=== PATIENT | male | born 1975 | race American Indian/Alaskan Native ===

== ENCOUNTER 2017-01-24 12:32 | Inpatient (IN) | payer MEDICARE, MEDICAID ==
--- NOTE | 2017-01-24 13:01 | ED PDOC ---
Arrival/HPI - General Chief Complaint: Dizziness/Lightheaded Time Seen by Provider: 01/24/17 12:45 Historian: Patient - History of Present Illness Narrative History of Present Illness (Text): 01/24/17 12:57 A 42 year old male, whose past medical history includes diabetes and hypertension, was sent into the emergency department from [facility] for dizziness and lethargy. Patient states he began experiencing these symptoms since last night. He also states that he's been vomiting this week. He was given antibiotics for his leg but vomiting them up. Patient denies any fever, chills, nausea, vomiting, abdominal pain, chest pain, shortness of breath, cough , weakness, numbness or any other complaints. PMD: Dr. Isaac Mom was called for more history but no answer. Left a voice mail. Time/Duration: Other (Last night) Symptom Course: Unchanged Quality: Other Context: Other (Adult daycare) Past Medical History - Provider Review Nursing Documentation Reviewed: Yes - Infectious Disease Hx of Infectious Diseases: None - Cardiac Hx Hypertension: Yes - Endocrine/Metabolic Hx Diabetes Mellitus Type 2: Yes - Musculoskeletal/Rheumatological Hx Gout: Yes - Psychiatric Hx Substance Use: No - Anesthesia Hx Anesthesia: No Family/Social History - Physician Review Nursing Documentation Reviewed: Yes Family/Social History: No Known Family HX Smoking Status: Unknown If Ever Smoked Hx Alcohol Use: No Hx Substance Use: No Allergies/Home Meds Allergies/Adverse Reactions: Allergies No Known Allergies Allergy (Verified 01/24/17 12:47) Home Medications: Home Meds Medication Instructions Recorded Confirmed Acetaminophen [Tylenol 325mg tab] 650 mg PO PRN PRN 01/24/17 01/24/17 Allopurinol [Zyloprim] 300 mg PO DAILY 01/24/17 01/24/17 Atorvastatin Calcium 10 mg PO DAILY 01/24/17 01/24/17 Cyclobenzaprine [Cyclobenzaprine 10 mg PO TID 01/24/17 01/24/17 HCl] Diclofenac Sodium [Voltaren] 75 mg PO BID 01/24/17 01/24/17 Gabapentin [Neurontin] 300 mg PO BID 01/24/17 01/24/17 Levofloxacin [Levaquin] 500 mg PO DAILY 01/24/17 01/24/17 Losartan/Hydrochlorothiazide 1 each PO DAILY 01/24/17 01/24/17 [Losartan-Hctz 100-25 mg Tab] MetFORMIN [glucOPHAGE] 500 mg PO BID 01/24/17 01/24/17 Nebivolol [Bystolic] 10 mg PO DAILY 01/24/17 01/24/17 amLODIPine [Norvasc] 5 mg PO DAILY 01/24/17 01/24/17 traMADol [Ultram] 50 mg PO Q6 PRN 01/24/17 01/24/17 Review of Systems - Physician Review All systems were reviewed & negative as marked: Yes - Review of Systems Systems not reviewed;Unavailable: Other (Limited to drowsiness) Constitutional: Other (Lethargy). absent: Fevers, Night Sweats Respiratory: absent: SOB, Cough Cardiovascular: absent: Chest Pain Gastrointestinal: absent: Abdominal Pain, Nausea, Vomiting Neurological: Dizziness. absent: Focal Weakness (or numbness) Physical Exam Vital Signs Reviewed: Yes Vital Signs Temp Pulse Resp BP Pulse Ox 01/24/17 16:04 64 16 91/37 L 92 L 01/24/17 15:13 68 16 85 L 01/24/17 14:46 69 20 95 01/24/17 12:49 97.3 F L 66 24 125/48 L 87 L Temperature: Afebrile Blood Pressure: Hypotensive Pulse: Regular Respiratory Rate: Normal Appearance: Positive for: Comfortable, Ill-Appearing, Other (Obese male) Pain Distress: None Mental Status: Positive for: Alert and Oriented X 3 (when you wake him up), Lethargic Finger Stick Blood Glucose: 136 - Systems Exam Head: Present: Atraumatic, Normocephalic Pupils: Present: PERRL Extroacular Muscles: Present: EOMI Conjunctiva: Present: Normal Mouth: Present: Moist Mucous Membranes Pharnyx: Present: Normal. No: ERYTHEMA Nose (Internal): Present: Normal Inspection Neck: Present: Normal Range of Motion. No: Meningeal Signs, MIDLINE TENDERNESS , Paraspinal Tenderness Respiratory/Chest: Present: Clear to Auscultation, Good Air Exchange. No: Respiratory Distress, Accessory Muscle Use Cardiovascular: Present: Regular Rate and Rhythm, Normal S1, S2. No: Murmurs Abdomen: Present: Normal Bowel Sounds. No: Tenderness, Distention, Peritoneal Signs Back: Present: Normal Inspection Upper Extremity: Present: Normal Inspection. No: Cyanosis, Edema Lower Extremity: Present: Normal Inspection. No: Edema Neurological: Present: GCS=15, CN II-XII Intact, Speech Normal Skin: Present: Warm, Dry, Normal Color, Other (5x3 irregular shaped superficial ulcer on left foot, mild warmth, no erythema). No: Rashes Psychiatric: Present: Alert, Oriented x 3, Normal Insight, Normal Concentration , Lethargic Medical Decision Making ED Course and Treatment: 01/24/17 12:57 Impression: A 42 year old female with dizziness and lethargy Differential Diagnosis included but are not limited to: Sepsis vs Drug Overdose , vs Electrolyte abnormality Plan: -- Head CT -- Chest xray -- EKG -- Labs -- Blood and Urine culture -- Urinalysis -- Reassess and disposition Progress Notes: EKG shows NSR at [address]-segment elevations, normal intervals. Interpreted by me. Report Date : 01/24/2017 14:08:40 PROCEDURE: CT HEAD WITHOUT CONTRAST. Dictator : Roberto Fernandez MD IMPRESSION: Normal CT of the Head. 01/24/17 14:17 Code sepsis called at this time. Report Date : 01/24/2017 14:26:40 PROCEDURE: CHEST RADIOGRAPH, 1 VIEW Dictator : Radha Alfonso V. IMPRESSION: Masslike consolidation in the mid right lung zone. Infiltrate versus underlying mass are considerations. Follow-up to ensure resolution is needed. CXR showed PNA and patient was treated with Cefepime and Vancomycin IV for broad spectrum antibiotics. Code Sepsis was called secondary to suspicion of infection, elevated WBC and RR and newly elevated Creatinine greater than 2.0. Patient does not report renal failure. LA not elevated. IVF were ordered. Case was discussed with Dr. Mendoza when he came to the ED. He reviewed the case and requested an ABG and CT to evaluated that questionable mass versus infiltrate. When CT was completed he was reevaluated and Oxy Sat was 84% on 2L. We increased the oxygen supply in the ED. Dr. Mendoza accepted the case to the ICU. Patient's PMD does not admit to [place]. I discussed case with Dr. Flavio Mendoza who accepted it under her service for PnA r/o Sepsis, ARF. Dye was ordered and placed by VY Mcdonough. - Critical Care Critical Care Minutes: 60 minutes - Lab Interpretations Lab Results: 01/24/17 13:43 01/24/17 13:43 Lab Results 01/24/17 14:27: Urine Opiates Screen Negative, Urine Methadone Screen Negative, Ur Barbiturates Screen Negative, Ur Phencyclidine Scrn Negative, Ur Amphetamines Screen Negative, U Benzodiazepines Scrn Negative, U Oth Cocaine Metabols Negative, U Cannabinoids Screen Negative 01/24/17 14:27: Urine Color Yellow, Urine Appearance Sl cloudy, Urine pH 5.5, Ur Specific Sieper >= 1.030, Urine Protein 100 H, Urine Glucose (UA) Negative, Urine Ketones Trace H, Urine Blood Negative, Urine Nitrate Negative, Urine Bilirubin Small H, Urine Urobilinogen 1.0 H, Ur Leukocyte Esterase Negative, Urine RBC 0 - 2, Urine WBC 0 - 2, Urine Bacteria Few 01/24/17 13:43: Ammonia 14 01/24/17 13:43: Alcohol, Quantitative < 10 01/24/17 13:43: Salicylates < 1 L, Acetaminophen < 10.0 L 01/24/17 13:43: Sodium 139, Chloride 101, Potassium 3.4 L, Carbon Dioxide 25, Anion Gap 16, BUN 25 H, Creatinine 4.1 H, Est GFR ( Amer) 20, Est GFR ( Non-Af Amer) 16, Random Glucose 118 H, Calcium 8.6, Phosphorus 4.6 H, Magnesium 1.5 L, Total Bilirubin 0.7, AST 25, ALT 44, Alkaline Phosphatase 51, Troponin I 0.66 H*, NT-Pro-B Natriuret Pep 231, Total Protein 6.9, Albumin 3.7, Globulin 3.2, Albumin/Globulin Ratio 1.2 01/24/17 13:43: pO2 37, VBG pH 7.26 L, VBG pCO2 58.0, VBG HCO3 26.0, VBG Total CO2 27.8, VBG O2 Sat (Calc) 71.7 H, VBG Base Excess -2.1 L, VBG Potassium 3.5 L , Sodium 139.0, Chloride 108.0 H, Glucose 123 H, Lactate 1.9, FiO2 21.0, Venous Blood Potassium 3.5 L 01/24/17 13:43: PT 10.7, INR 0.99, APTT 26.4 01/24/17 13:43: WBC 19.6 H, RBC 4.37, Hgb 11.1 L, Hct 34.8 L, MCV 79.6 L, MCH 25.4, MCHC 31.9, RDW 17.7 H, Plt Count 375, MPV 8.9, Gran % 87.4 H, Lymph % ( Auto) 6.7 L, [place] % (Auto) 4.6, Eos % (Auto) 1.1 L, Baso % (Auto) 0.2, Gran # 17.13 H, Lymph # 1.3, [place] # 0.9 H, Eos # 0.2, Baso # 0.04 I have reviewed the lab results: Yes Interpretation: Abnormal lab values - RAD Interpretation Radiology Orders: 01/24/17 12:57 CHEST ONE VIEW [RAD] Stat 01/24/17 12:59 HEAD W/O CONTRAST [CT] Stat 01/24/17 14:32 CHEST W/O CONTRAST [CT] Stat Medicinal Chemist: Radiologist - Medication Orders Current Medication Orders: Acetaminophen (Tylenol 325mg Tab) 650 mg PO Q6H PRN PRN Reason: Pain Albuterol/Ipratropium (Duoneb 3 Mg/0.5 Mg (3 Ml) Ud) 3 ml IH Q2H PRN PRN Reason: Shortness of Breath Atorvastatin Calcium (Lipitor) 10 mg PO DAILY ERASMO Gabapentin (Neurontin) 300 mg PO BID ERASMO PRN Reason: Protocol Sodium Chloride (Sodium Chloride 0.9%) 1,000 mls @ 150 mls/hr IV .Q6H40M [facility] Last Admin: 01/24/17 14:17 Dose: 150 mls/hr Sodium Chloride (Sodium Chloride 0.9%) 3,000 mls @ 999 mls/hr IV .Q3H1M STA Stop: 01/24/17 19:32 Cefepime HCl (Maxipime 1gm) 1 gm in 100 mls @ 100 mls/hr IVPB Q8 ERASMO PRN Reason: Protocol Sodium Chloride (Sodium Chloride 0.9%) 1,000 mls @ 150 mls/hr IV .Q6H40M ERASMO Vancomycin HCl (Vancomycin 1gm) 1 gm in 250 mls @ 167 mls/hr IVPB DAILY ERASMO PRN Reason: Protocol Stop: 01/25/17 11:30 Insulin Human Regular (Humulin R Low) 0 units SC ACHS ERASMO PRN Reason: Protocol Pantoprazole Sodium (Protonix Inj) 40 mg IVP DAILY ERASMO Discontinued Medications Cefepime HCl (Maxipime 2gm) 2 gm in 100 mls @ 100 mls/hr IVPB STAT STA PRN Reason: Protocol Stop: 01/24/17 15:16 Last Admin: 01/24/17 14:26 Dose: 100 mls/hr Vancomycin HCl (Vancomycin 1gm) 1 gm in 250 mls @ 167 mls/hr IVPB STAT STA PRN Reason: Protocol Stop: 01/24/17 15:47 Last Admin: 01/24/17 16:07 Dose: 167 mls/hr Magnesium Oxide (Mag-Ox) 400 mg PO STAT STA Stop: 01/24/17 14:08 Last Admin: 01/24/17 14:13 Dose: 400 mg Potassium Chloride (Potassium Chloride Oral Soln) 40 meq PO STAT STA Stop: 01/24/17 14:08 Last Admin: 01/24/17 14:13 Dose: 40 meq - Scribe Statement The provider has reviewed the documentation as recorded by the Cj Bingham Provider Scribe Attestation: All medical record entries made by the Cj were at my direction and personally dictated by me. I have reviewed the chart and agree that the record accurately reflects my personal performance of the history, physical exam, medical decision making, and the department course for this patient. I have also personally directed, reviewed, and agree with the discharge instructions and disposition. Disposition/Present on Arrival - Present on Arrival Any Indicators Present on Arrival: No History of DVT/PE: No History of Uncontrolled Diabetes: No Urinary Catheter: No History of Decub. Ulcer: No History Surgical Site Infection Following: None - Disposition Have Diagnosis and Disposition been Completed?: Yes Diagnosis: Pneumonia, Severe sepsis, Acute renal failure Disposition: HOSPITALIZED Disposition Time: 15:34 Patient Plan: Admission, ICU Condition: GUARDED
[2017-01-24 13:45] LABS: ADD MANUAL DIFF? NO
[2017-01-24 13:49] LABS: VENOUS BLOOD GAS BASE EXCESS -2.1 mmol/L (0.0-2.0); VENOUS BLOOD PH 7.26 (7.32-7.43)
[2017-01-24 13:51] LABS: BASO # 0.04 K/mm3 (0.0-2.0); BASO % 0.2 % (0.0-3.0); EOS # 0.2 (0.0-0.7); EOS % 1.1 % (1.5-5.0); GRAN # 17.13 (1.4-6.5); GRAN % 87.4 % (50.0-68.0); HEMATOCRIT 34.8 % (42.0-52.0); LYMPH # 1.3 (1.2-3.4); LYMPH % 6.7 % (22.0-35.0); MEAN CELL VOLUME 79.6 fL (80.0-105.0); MEAN CORPUSCULAR HEMOGLOBIN 25.4 pg (25.0-35.0); MEAN CORPUSCULAR HGB CONC 31.9 g/dl (31.0-37.0); MEAN PLATELET VOLUME 8.9 fl (7.0-11.0); MONO # 0.9 (0.1-0.6); MONO % 4.6 % (1.0-6.0); PLATELET COUNT 375 10^3/uL (120.0-450.0); RED CELL DISTRIBUTION WIDTH 17.7 % (11.5-14.5); WHITE BLOOD COUNT 19.6 10^3/ul (4.5-11.0)
[2017-01-24 14:01] LABS: ALB/GLOB RATIO 1.2 (1.1-1.8); BILIRUBIN,TOTAL 0.7 mg/dL (0.2-1.3); CALCIUM 8.6 mg/dL (8.4-10.5); INR 0.99 (0.93-1.08); MAGNESIUM 1.5 mg/dL (1.7-2.2); PARTIAL THROMBOPLASTIN TIME 26.4 Seconds (23.7-30.8); PHOSPHOROUS 4.6 mg/dL (2.5-4.5); POTASSIUM 3.4 mmol/L (3.6-5.0); TOTAL PROTEIN 6.9 g/dL (5.8-8.3)
[2017-01-24] MEDS ORDERED: Magnesium Oxide 400 mg Tab UD PO STA (14:07)
[2017-01-24] MEDS ORDERED: Potassium Chloride 40 mEq/30 ml LIQ UD PO STA (14:07)
[2017-01-24] MEDS ORDERED: Cefepime IV 2 gm in NS 100 ML IVPB STA (14:11)
[2017-01-24] MEDS ORDERED: Vancomycin 1gm in NS 250ml 250 ML IVPB STA (14:11)
--- NOTE | 2017-01-24 14:11 | CT ---
PROCEDURE: CT HEAD WITHOUT CONTRAST. HISTORY: lethargic COMPARISON: None available. TECHNIQUE: Axial computed tomography images were obtained through the head/brain without intravenous contrast. Radiation dose: Total exam DLP = 790 mGy-cm. This CT exam was performed using one or more of the following dose reduction techniques: Automated exposure control, adjustment of the mA and/or kV according to patient size, and/or use of iterative reconstruction technique. FINDINGS: HEMORRHAGE: No intracranial hemorrhage. BRAIN: No mass effect or edema. No atrophy or chronic microvascular ischemic changes. VENTRICLES: Unremarkable. No hydrocephalus. CALVARIUM: Unremarkable. PARANASAL SINUSES: Unremarkable as visualized. No significant inflammatory changes. MASTOID AIR CELLS: Unremarkable as visualized. No inflammatory changes. OTHER FINDINGS: None. IMPRESSION: Normal CT of the Head.
[2017-01-24] MEDS ORDERED: Cefepime IV 2 gm in NS 2 GM/100 ML BAG IVPB STA (14:17)
[2017-01-24] MEDS: Sodium Chloride 0.9% 1,000 ML IV SCH ×2 (14:17→21:19)
[2017-01-24] MEDS ORDERED: Vancomycin 1gm in NS 250ml 1 GM/250 ML BAG IVPB STA (14:18)
--- NOTE | 2017-01-24 14:28 | RAD ---
PROCEDURE: CHEST RADIOGRAPH, 1 VIEW HISTORY: Sepsis Patient COMPARISON: None available. FINDINGS: LUNGS: A 4 by approximately 6 mm masslike consolidation over the right mid lung zone is suggested. Increase opacity overlying the left inferolateral hemithorax may be due to summation of soft tissues this patient with large body habitus PLEURA: No pneumothorax or pleural fluid seen. CARDIOVASCULAR: Normal. OSSEOUS STRUCTURES: No significant abnormalities. VISUALIZED UPPER ABDOMEN: Normal. OTHER FINDINGS: None. IMPRESSION: Masslike consolidation in the mid right lung zone. Infiltrate versus underlying mass are considerations. Follow-up to ensure resolution is needed.
[2017-01-24 14:33] LABS: TROPONIN I 0.66 ng/mL
[2017-01-24 14:50] LABS: PH,URINE 5.5 (4.7-8.0); URINE BILIRUBIN SMALL (NEGATIVE); URINE BLOOD NEGATIVE (NEGATIVE); URINE GLUCOSE (UA) NEGATIVE (NEGATIVE); URINE KETONE TRACE mg/dL (NEGATIVE); URINE LEUKOCYTE ESTERASE NEGATIVE Leu/uL (NEGATIVE); URINE PROTEIN 100 mg/dL (<30 mg/dL)
[2017-01-24 14:52] LABS: URINE APPEARANCE SL CLOUDY (CLEAR); URINE COLOR YELLOW (YELLOW)
[2017-01-24 14:56] LABS: URINE BACTERIA FEW (NEG); URINE RBC 0 - 2 /hpf (0-2); URINE WBC 0 - 2 /hpf (0-6)
--- NOTE | 2017-01-24 15:23 | CT ---
PROCEDURE: CT Chest without contrast HISTORY: mass vs infiltrate COMPARISON: None. TECHNIQUE: Contiguous axial images were obtained through the chest without intravenous contrast enhancement. Sagittal and coronal reconstructions were performed. Radiation dose (DLP): 962 mGy-cm. This CT exam was performed using one or more of the following dose reduction techniques: Automated exposure control, adjustment of the mA and/or kV according to patient size, and/or use of iterative reconstruction technique. FINDINGS: LUNGS: Alveolar infiltrates are seen in the upper lobes with air bronchograms. Linear infiltrates are seen in both lung bases. MEDIASTINUM: Unremarkable thoracic aorta. No aneurysm. Normal sized heart. Main pulmonary artery unremarkable. No vascular congestion. No lymphadenopathy. PLEURA: No pleural fluid. No pneumothorax. BONES: No fracture. No destructive lesion. UPPER ABDOMEN: There is fatty infiltration of the liver OTHER FINDINGS: None. IMPRESSION: Bilateral upper lobe pneumonia. No evidence of lung mass
[2017-01-24 16:11] LABS: ARTERIAL BLOOD GAS HCO3 23.6 mmol/L (21-28); ARTERIAL BLOOD GAS O2 CAPACITY 14.6 mL/dl (16-24); ARTERIAL BLOOD GAS O2 CONTENT 12.9 ML/dl (15-23); ARTERIAL BLOOD HGB O2 SAT 86.4 % (95.0-98.0); HHB 11.1 % (0-5); METHEMOGLOBIN 0.5 % (0.0-3.0)
[2017-01-24 16:16] LABS: ARTERIAL BLOOD GAS PH 7.24 (7.35-7.45)
[2017-01-24] MEDS ORDERED: Albuterol-Ipratrop 3 mg / 0.5 (3 ml) UD IH PRN (16:27)
[2017-01-24] MEDS ORDERED: Sodium Chloride 0.9% 1,000 ML IV SCH (16:30)
[2017-01-24] MEDS ORDERED: Sodium Chloride 0.9% 3,000 ML IV STA (16:32)
--- NOTE | 2017-01-24 16:45 | CP.PCM.HP ---
<Nancy Farr - Last Filed: 01/24/17 16:47> History of Present Illness - History of Present Illness History of Present Illness: This is a 42Y M with PMH HTN, HLD, DM, gout who came to the ED from his adult day care for dizziness. Upon interview, patient is very lethargic and had to be awoken several times by sternal rub. The history obtained was limited and per records and nursing staff. Although the patient was lethargic, he was alert and oriented to person, place and time. The patient reports he was feeling dizzy for the past 2 days. Yesterday he was dizzy and fell out of his chair. He did not hit his head. This morning he was feeling dizzy with SOB and chest pressure at the day care center and EMS was called. Patient says [place] was [place] [facility] [place]". He also reports having remote dialysis in 2007. Records from day care center were reviewed and were from January 2016. Patient denies abdominal pain, n/v/d. He says he has SOB and chest pressure. Further ROS could not be obtained. PMH: HTN, HLD, DM, gout PSH: Denies Home meds: Please see MAR. all: NKDA SH: Lives with aunt. Denies EtOH, tobacco or drug use (urine tox negative). FH: Denies Present on Admission - Present on Admission Any Indicators Present on Admission: No Review of Systems - Review of Systems Systems not reviewed;Unavailable: Altered Mental Status Past Patient History - Infectious Disease Hx of Infectious Diseases: None - Past Social History Smoking Status: Unknown If Ever Smoked Alcohol: None Drugs: Denies Home Situation {Lives}: With Family - CARDIAC Hx Hypertension: Yes - ENDOCRINE/METABOLIC Hx Diabetes Mellitus Type 2: Yes - INTEGUMENTARY Other/Comment: MRSA to bilat lower ext ulcers - MUSCULOSKELETAL/RHEUMATOLOGICAL Hx Gout: Yes - PSYCHIATRIC Hx Substance Use: No - ANESTHESIA Hx Anesthesia: No Meds Allergies/Adverse Reactions: Allergies Allergy/AdvReac Type Severity Reaction Status Date / Time No Known Allergies Allergy Verified 01/24/17 12:47 Physical Exam - Constitutional Additional comments: lethargic - Head Exam Head Exam: ATRAUMATIC, NORMAL INSPECTION, NORMOCEPHALIC - Eye Exam Eye Exam: Normal appearance Pupil Exam: NORMAL ACCOMODATION - ENT Exam ENT Exam: Mucous Membranes Moist - Respiratory Exam Respiratory Exam: Rhonchi, NORMAL BREATHING PATTERN. absent: Rales, Wheezes - Cardiovascular Exam Cardiovascular Exam: REGULAR RHYTHM, +S1, +S2. absent: Gallop, Rubs, Systolic Murmur - GI/Abdominal Exam GI & Abdominal Exam: Normal Bowel Sounds, Soft, Tenderness. absent: Guarding, Mass, Rebound, Rigid - Extremities Exam Extremities exam: Positive for: pedal edema. Negative for: normal inspection, tenderness Additional comments: +3 pitting edema L ankle has healing ulcer - Neurological Exam Neurological exam: CN II-XII Intact, Oriented x3 - Skin Skin Exam: Dry, Normal Color, Warm Results - Vital Signs Recent Vital Signs: Last Vital Signs Temp 97.3 F L 01/24/17 12:49 Pulse 64 01/24/17 16:04 Resp 16 01/24/17 16:04 BP 91/37 L 01/24/17 16:04 Pulse Ox 92 L 01/24/17 16:04 - Labs Result Diagrams: 01/24/17 13:43 01/24/17 13:43 Labs: Laboratory Results - last 24 hr 01/24/17 16:00 pCO2 55 H pO2 55.0 L HCO3 23.6 ABG pH 7.24 L ABG Total CO2 25.3 ABG O2 Saturation 88.6 L ABG O2 Content 12.9 L ABG Base Excess -4.1 L ABG Hemoglobin 10.6 L ABG Carboxyhemoglobin 2.0 H POC ABG HHb (Measured) 11.1 H ABG Methemoglobin 0.5 ABG O2 Capacity 14.6 L Hgb O2 Saturation 86.4 L FiO2 35.0 - EKG Data EKG Interpreted by: Myself EKG shows normal: Sinus rhythm, QRS complexes (Prolonged QTC) Rate: Normal Assessment & Plan - Assessment and Plan (Free Text) Assessment: This is a 42Y M PMH HTN, HLD, DM, gout admitted for sepsis, AMS, ERICA, and elevated troponin. Plan: 1. Sepsis - leukocytosis, afebrile - CT chest showed bilateral upper lobe pneumonia - Cefepime and Vanc - PCT pending, Urine culture and blood culture pending - Lactate is 1.9 - Legionella and strep pending - ID consulted - Levaquin contraindicated due to prolonged QTC 2. AMS - A&O x 3, but lethargic, hard to arouse - possibly secondary to hypercapneic respiratory failure - pulmonary management as per ICU team -will be placed on Bipap - CT head neg - NPO until speech and swallow eval - aspiration precautions - UDS negative 3. ERICA - Cr: 4.1- baseline unknown - Hx of remote dialysis - Nephro consulted - Will get Urine lytes-check FeNa - NS@150 - Will continue to monitor electrolytes and replace as needed 4. NSTEMI - Troponin 0.66- will repeat x 2 - EKG showed NSR with prolonged QTC - Cardiology consulted 5. HTN - hypotensive upon examination - Hold home antihypertensives - NS@150- will continue to monitor vitals 6. DM - hold Metformin - ISS - BGM ACHS - maintain euglycemia 7. HLD - Continue Lipitor 8. Hx of gout - Hold allopurinol GI ppx: Protonix DVT ppx: Heparin Of Note, Aunt who the patient lives with was not able to be contacted. She did not seed cone picker her phone. Will attempt to contact once again in AM Patient recently [place] [facility] will request records. Case seen, reviewed and discussed with attending Jenny Farr PGY1 - Date & Time Date: 01/24/17 Time: 16:56 <Makayla Mendoza - Last Filed: 01/27/17 12:47> Results - Vital Signs Recent Vital Signs: Last Vital Signs Temp 98.0 F 01/27/17 06:00 Pulse 95 H 01/27/17 06:00 Resp 20 01/27/17 06:00 BP 145/91 H 01/27/17 09:22 Pulse Ox 100 01/27/17 06:00 - Labs Result Diagrams: 01/27/17 07:51 01/27/17 07:51 Labs: Laboratory Results - last 24 hr 01/26/17 01/26/17 01/26/17 06:00 07:26 11:15 WBC RBC Hgb Hct MCV MCH MCHC RDW Plt Count MPV Gran % Lymph % (Auto) [place] % (Auto) Eos % (Auto) Baso % (Auto) Gran # Lymph # [place] # Eos # Baso # PT INR Sodium Potassium Chloride Carbon Dioxide Anion Gap BUN Creatinine Est GFR ( Amer) Est GFR (Non-Af Amer) POC Glucose (mg/dL) 138 H 159 H Random Glucose Calcium Iron TIBC % Saturation Total Bilirubin AST ALT Alkaline Phosphatase Lactate Dehydrogenase Total Creatine Kinase Troponin I Total Protein Albumin Globulin Albumin/Globulin Ratio HIV 1&2 Ag/Ab, 4th Gen Nonreactive 01/26/17 01/26/17 01/27/17 16:56 21:14 07:18 WBC RBC Hgb Hct MCV MCH MCHC RDW Plt Count MPV Gran % Lymph % (Auto) [place] % (Auto) Eos % (Auto) Baso % (Auto) Gran # Lymph # [place] # Eos # Baso # PT INR Sodium Potassium Chloride Carbon Dioxide Anion Gap BUN Creatinine Est GFR ( Amer) Est GFR (Non-Af Amer) POC Glucose (mg/dL) 121 H 114 H 127 H Random Glucose Calcium Iron TIBC % Saturation Total Bilirubin AST ALT Alkaline Phosphatase Lactate Dehydrogenase Total Creatine Kinase Troponin I Total Protein Albumin Globulin Albumin/Globulin Ratio HIV 1&2 Ag/Ab, 4th Gen 01/27/17 01/27/17 01/27/17 07:51 07:51 07:51 WBC 12.7 H RBC 4.01 Hgb 10.0 L Hct 30.9 L MCV 77.1 L MCH 24.9 L MCHC 32.4 RDW 17.3 H Plt Count 387 MPV 9.2 Gran % 72.5 H Lymph % (Auto) 17.4 L [place] % (Auto) 6.7 H Eos % (Auto) 3.2 Baso % (Auto) 0.2 Gran # 9.24 H Lymph # 2.2 [place] # 0.9 H Eos # 0.4 Baso # 0.02 PT 11.1 INR 1.03 Sodium 137 Potassium 3.2 L Chloride 99 Carbon Dioxide 29 Anion Gap 12 BUN 8 Creatinine 0.7 Est GFR ( Amer) > 60 Est GFR (Non-Af Amer) > 60 POC Glucose (mg/dL) Random Glucose 112 H Calcium 8.5 Iron TIBC % Saturation Total Bilirubin 0.7 AST 31 ALT 33 Alkaline Phosphatase 65 Lactate Dehydrogenase 477 Total Creatine Kinase 65 Troponin I 0.15 H* D Total Protein 6.5 Albumin 3.3 Globulin 3.3 Albumin/Globulin Ratio 1.0 L HIV 1&2 Ag/Ab, 4th Gen 01/27/17 01/27/17 07:51 11:50 WBC RBC Hgb Hct MCV MCH MCHC RDW Plt Count MPV Gran % Lymph % (Auto) [place] % (Auto) Eos % (Auto) Baso % (Auto) Gran # Lymph # [place] # Eos # Baso # PT INR Sodium Potassium Chloride Carbon Dioxide Anion Gap BUN Creatinine Est GFR ( Amer) Est GFR (Non-Af Amer) POC Glucose (mg/dL) 133 H Random Glucose Calcium Iron 23 L TIBC 286 % Saturation 8 L Total Bilirubin AST ALT Alkaline Phosphatase Lactate Dehydrogenase Total Creatine Kinase Troponin I Total Protein Albumin Globulin Albumin/Globulin Ratio HIV 1&2 Ag/Ab, 4th Gen Attending/Attestation - Attestation I have personally seen and examined this patient.: Yes I have fully participated in the care of the patient.: Yes I have reviewed all pertinent clinical information: Yes Notes (Text): I have seen and examined patient with the resident. This is 42 year old male with history of HTN, dyslipidemia, DM-2, gout who was sent from day care for evaluation of dizziness and generalized weakness. Upon exam, he appears very lethargic and is not able to answer any questions. He is being admitted to ICU for sepsis secondary to bilateral upper lobe pneumonia. Will start cefepime and vancomycin. Will not start levaquin due to prolong QTc. His AMS is secondary to hypercapneic respiratory failure. As he is hypoxic on RA , will start bipap on him. CT head negative. Also found to have elevated creatinine level most likely due to acute kidney injury secondary to prenal however baseline creatinine is not known. Will do urine lytes to calculate Fe Na. Will start IVF and will consult Lending Manager. He has elevated troponin which can be due to renal impairement. Will conslt cardiology for further management. Will obtain echo. Will obtain serial cardiac iso and ekg. Patient is hypotensive and will need IVF and lose monnitorng in icu. Will hold antihypertensives. Start ISS. Upon discharge patient will follow up with Dr Marlin Mendoza
--- NOTE | 2017-01-24 18:49 | CON ---
DATE: 01/24/2017 HISTORY OF PRESENT ILLNESS: The patient is a 42-year-old male who presented to the [facility] with acute shortness of breath, lethargy, difficult to arouse. The patient also presented with hypoxia of uncertain origin. I was called for code sepsis and ultimately for an ICU evaluation due to the patient' s multiple SIRS criteria along with hypoxia. Upon talking to the patient, the patient started becoming more awake, coherent and explaining that he has been having bouts of vomiting, generalized lethargy and falls at his adult daycare. The patient was recently admitted to [facility] for which he was given IV antibiotics for cellulitis, unclear if the patient had a subsequent infection following the cellulitis such as C. diff, etc. Also of note, the patient was hypoxic and seen on chest x-ray to have a right posterior upper lobe infiltrate and/or mass. PAST MEDICAL HISTORY: Hypertension, diabetes, cellulitis, unclear developmental delay. PAST SURGICAL HISTORY: Uncertain. SOCIAL HISTORY: Nonsmoker, no alcohol, no IV drug abuse, does live at adult daycare. OUTPATIENT MEDICATIONS: Include allopurinol, amlodipine, cyclobenzaprine, diclofenac, gabapentin, levofloxacin, losartan, metformin, nebivolol, and tramadol. LABORATORY RESULTS: White blood cell count 19.6, hemoglobin 11, platelet count 375. Sodium 139, potassium 3.4, chloride 101, bicarb 25, BUN 25, creatinine 4.1 , troponin currently is elevated at 0.66. INR 0.99. VBG: pH 7.26. Urine drug screen is negative. PHYSICAL EXAMINATION: VITAL SIGNS: Temp 97.3, heart rate 68, blood pressure 125/48, respiratory rate is 16 and 85% on room air. HEENT: The pupils are equal, round, and reactive to light. Extraocular eye movements are intact. Mallampati 4. Dry mucous membranes. NECK: Difficult to auscultate JVD. LUNGS: Have scattered rhonchi, decreased breath sounds on the right. CARDIOVASCULAR: S1, S2 is heard without any heaves, murmurs, or thrills. ABDOMEN: Soft, obese, nontender, without any rebound or guarding. EXTREMITIES: Show multiple excoriations and healing infections. No pus or areas of drainage. +1 pedal edema bilaterally. NEUROLOGIC: The patient is alert and oriented x 3, is slow in his speech, moving all extremities. No focal neurological deficits. Chest x-ray reviewed by me does show a dense infiltrate in the right upper lobe. CT chest imaging seen by me also shows verification of multilobar infiltrates along with pulmonary vascular congestion, also question of right posterior upper lobe dense consolidations. ASSESSMENT AND PLAN: The patient is a 42-year-old male admitted for SIRS criteria and sepsis secondary to possible pneumonia and/or other infections. We will continue with sepsis protocol with antibiotics within the first hour, broad spectrum covering hospital-acquired pneumonia, cefepime, vancomycin given minimally dosed. The patient will also have blood cultures, urine cultures, sputum cultures drawn. The patient should also get 30 mL per mL/kg weight at this time. The patient's urine output should be trended as well. The patient's CT scan does show multifocal infiltrates with some hypoxemia. Arterial blood gas is pending at this time, keep PaO2 greater than 60, oxygen saturation greater than 92%, albuterol nebulizers, chest PT to be given. The patient's records are also needed from [facility] as far as the patient's recent admission, as far as which antibiotics and infections they were treating. Leukocytosis at this time should be trended and antibiotics to be given and fluid hydration. The patient's elevated creatinine at this time is unclear if this is new ERICA or is ERICA on CKD, would need old records as well. The patient's urine output should be trending in urine, output should be trended as hydration is given. We will continue with another bolus of normal saline and continue at 125 mL an hour. Mild elevation of troponin, unclear if this is type 2 or type 1. The patient's EKG does not show any new acute findings. We will wait for a new EKG. The patient's troponin should be trending q. 8 hours as well. Electrolytes shall all be administered and corrected. Deep venous thrombosis prophylaxis, heparin subQ t.i.d. PPIs to be given. Urine for Legionella also to be sent. TOTAL CRITICAL CARE TIME: 65 minutes. Dimple Mendoza M.D. cc: [id number] TT: 01/24/2017 18:48:57 Confirmation # [id number] Dictation # [id number] naomi STRICKLAND
--- NOTE | 2017-01-24 19:01 | CARD ---
APPROVED REPORT EKG Measurement Heart [id number] <Conclusion> Normal sinus rhythm Normal ECG
[2017-01-24 19:09] VITALS: BMI 44.4
[2017-01-24] MEDS ORDERED: Pneumococcal 23-Valent Vaccine IM ONE (19:10)
[2017-01-24] MEDS: Insulin Reg-LOW-Coverage SC SCH (22:01)
[2017-01-24] MEDS ORDERED: Sodium Chloride 0.9% 1,000 ML IV STA (22:15)
--- NOTE | 2017-01-24 23:22 | PCM.SEPTIC ---
<Tiana Hampton - Last Filed: 01/24/17 23:55> Sepsis Progress Note - Reassessment Type Date of Evaluation: 01/24/17 Time of Evaluation: 23:19 Reassessment Type: Non-invasive reassessment - Non Invasive Reassessment Were the most recent vital sign reviewed: Yes Vital Sign (Latest): Temp Pulse Resp BP Pulse Ox 97.3 F L 61 12 90/37 L 100 01/24/17 18:56 01/24/17 18:56 01/24/17 18:56 01/24/17 18:56 01/24/17 18:30 Cardiovascular: Yes: Regular Rate, Rhythm Respiratory: Yes: Accessory Muscle Use. No: Normal Breath Sounds (coarse), Rales, Rhonchi, Wheezing, Respiratory Distress Capillary Refill: Normal (Less than 2 sec) Skin: Normal Color, Warm, Dry - Invasive Reassessment (complete 2 of 4) Was a Central Venous Pressure Measurement obtained within 6 Hours after the presentation of septic shock: No Was a central venous oxygen measurement obtained within 6 hours after the presentation of septic shock: No Was a bedside cardiovascular ultrasound performed within 6 hours after the presentation of septic shock: No Was a passive leg raise performed or was a fluid challenge performed within 6 hrs of the initial fluid bolus: No Fluid Challenge performed: No <Clarence Noyola - Last Filed: 01/25/17 00:13> Sepsis Progress Note - Non Invasive Reassessment Vital Sign (Latest): Temp Pulse Resp BP Pulse Ox 97.3 F L 61 12 90/37 L 100 01/24/17 18:56 01/24/17 18:56 01/24/17 18:56 01/24/17 18:56 01/24/17 18:30 Was a passive leg raise performed or was a fluid challenge performed within 6 hrs of the initial fluid bolus: Yes Fluid Challenge performed: Yes
[2017-01-24 23:51] LABS: ARTERIAL BLOOD GAS HCO3 18.8 mmol/L (21-28); ARTERIAL BLOOD GAS PH 7.21 (7.35-7.45)
[2017-01-25] MEDS: Meropenem 1g/NS 100mL IVPB 1 GM/100 ML PIGGYBACK IVPB SCH ×2 (00:07→21:35)
[2017-01-25] MEDS: Vancomycin 1gm in NS 250ml 1 GM/250 ML BAG IVPB SCH ×2 (04:49→09:57)
--- NOTE | 2017-01-25 07:36 | CON ---
DATE: 01/24/2017 REASON FOR CONSULTATION: Positive troponin, acute kidney injury, morbid obesity, altered mental stat us, lethargic. BRIEF CLINICAL HISTORY: This is a 42-year-old morbidly obese male with past medical history of diabe [place], hypertension, hyperlipidemia, chronic kidney disease, had dialysis in 2007, was sent from [facility] because patient was dizzy and lethargic. The patient is a very poor historian, unable to give any history. Denies any chest pain, denies nausea, vomiting, denies any shortness of breath or chest pain. PAST MEDICAL HISTORY: Significant for hypertension, hyperlipidemia, diabetes, gout, history of remot e dialysis in 2007, history of recently discharged from [facility]. The patient says this was nausea and vomiting and a GI issue. SOCIAL HISTORY: . Denies any alcohol abuse, tobacco or any illicit drug abuse. FAMILY HISTORY: No history of coronary artery disease. CURRENT MEDICATIONS: The patient is at home taking acetaminophen, Voltaren, gabapentin, allopurinol, metformin, tramadol, atorvastatin, losartan. amlodipine, Levaquin. REVIEW OF SYSTEMS: As per HPI. PHYSICAL EXAMINATION: VITAL SIGNS: Temperature afebrile, heart rate 90, blood pressure . HEENT: PERRLA. Extraocular muscles intact. NECK: Supple. No carotid bruits. No thyromegaly. CHEST: Clear to auscultation. HEART: S1, S2 regular. ABDOMEN: Soft. EXTREMITIES: Clubbing and cyanosis negative. LABORATORY DATA: Blood workup as follows: WBC 19.3, hemoglobin 11.8, hematocrit 34.8, platelet coun t 375. Chemistry shows sodium 130, potassium 3.4, chloride 101, carbon dioxide 25, 16, BUN 25, creatinine 4.1. Troponin 0.01. CAT scan of the chest shows possible bilateral upper lobe pneumonia . IMPRESSION: Height of the patient is 5 feet, weight of the patient 275, body mass index 44 kg/m2. S epsis, septic shock, bilateral pneumonia, lethargy, altered mental status, acute kidney injury, leuko cytosis. Creatinine clearance 20 , troponin, possibly not significant in face of acute kidney i njury, but cannot rule out underlying coronary artery disease, multiple risk factors of obesity, diab etes, hypertension, hyperlipidemia. RECOMMENDATION: Echo to assess for serial CPK, troponin. Continue IV fluid. Aggressive treatment f or sepsis with broad spectrum antibiotic, IV fluid. Further recommendation with the hospital course. Will follow with you. Lipid profile, TSH, hemoglobin A1c. Thank you, Dr. Makayla Mendoza, for allowing me to take part in the care of the patient. Garcia Pack MD cc: [id number] TT: 01/25/2017 01:02:48 Confirmation # [id number] Dictation # [id number] mn 01/25/2017 06:35:41
[2017-01-25] MEDS: Insulin Reg-LOW-Coverage SC SCH ×4 (08:42→21:42)
[2017-01-25 09:39] LABS: ARTERIAL BLOOD GAS PH 7.34 (7.35-7.45)
[2017-01-25 09:50] LABS: ALKALINE PHOSPHATASE 36 U/L (38-133); ALT/SGPT 39 U/L (7-56); AST/SGOT 22 U/L (15-59); BILIRUBIN,TOTAL 0.5 mg/dL (0.2-1.3); BLOOD UREA NITROGEN 23 mg/dL (7-21); CARBON DIOXIDE 20 mmol/L (21-33); CHLORIDE 112 mmol/L (98-107); CHOLESTEROL 54 mg/dL (130-200); GFR AFRICAN-AMERICAN 36; GLUCOSE,RANDOM 95 mg/dL (70-110); MAGNESIUM 1.5 mg/dL (1.7-2.2); PHOSPHOROUS 3.3 mg/dL (2.5-4.5); SODIUM 143 mmol/L (132-148); TOTAL PROTEIN 5.3 g/dL (5.8-8.3)
[2017-01-25] MEDS ORDERED: Barium Sulfate Susp 2.1% w/v, 2.0% w/w 450 mL Bottle PO ONE (09:55)
[2017-01-25] MEDS ORDERED: Cefepime 1gm in NS 100ml 1 GM/100 ML BAG IVPB SCH (10:00)
[2017-01-25 10:22] LABS: CALCIUM 6.3 mg/dL (8.4-10.5); POTASSIUM 3.7 mmol/L (3.6-5.0); TROPONIN I 0.19 ng/mL
--- NOTE | 2017-01-25 10:34 | CON ---
DATE: 01/25/2017 The patient is seen in bed in the ICU 129, bed 23 this morning. CHIEF COMPLAINT: Shortness of breath times 1 or 2 days' duration. HISTORY OF PRESENT ILLNESS: This is a 42-year-old male with morbid obesity with a BMI of 45 with neville betes mellitus, hypertension, history of gout, and hyperlipidemia. The patient is in an adult care c enter, recently was in [facility] with a questionable history of dialysis ____ in 200 8, and is now admitted with the diagnosis of pneumonia. Infectious disease consultation requested. REVIEW OF SYSTEMS: The patient is with low-grade fevers and shortness of breath, minimal cough, nonp roductive. No abdominal pain, diarrhea, or constipation. No bright red blood per rectum. No melena . No dysuria or frequency. PAST MEDICAL HISTORY: Significant for diabetes mellitus, hypertension, gout, hyperlipidemia, and mor bid obesity with a BMI of 45. PAST SURGICAL HISTORY: Significant for access for dialysis in 2007. ALLERGIES: The patient has no known allergies. MEDICATIONS AT HOME: Include Norvasc, Bystolic, metformin, losartan, hydrochlorothiazide, and gabape ntin, Voltaren, statin, and tramadol. PHYSICAL EXAMINATION: GENERAL: The patient is in bed with a temperature of 97. Respiratory rate was 16. It was up to 33 and 21 earlier, and a heart rate of 68 with a blood pressure of 130/60. It was down to 80/38. In th e Emergency Room, it was 69/33. HEENT: Unremarkable. NECK: Supple. LUNGS: Have decreased breath sounds. HEART: Normal S1, S2. ABDOMEN: Soft, nontender. No rebound, no guarding. LABORATORY EXAMINATION: Reveals the patient's white count to be 19,600, hemoglobin of 11, platelets of 375, and BUN of 25. Creatinine is 4.1. Troponin is 0.49, and procalcitonin is 0.66, and although ____ of creatinine of 4.1. The patient had a CAT scan of the chest, which reveals alveolar infiltrates in the upper lobe with ai r bronchogram. Linear infiltrates are seen on both lungs. The LFTs are normal. Dr. Pack's consultation is reviewed. History and physical examination is reviewed. The Emergency Ro om chart is reviewed. ASSESSMENT AND PLAN: This is a 42-year-old male with morbid obesity with a body mass index of 45, di abetes mellitus, hypertension, gout, history of lower extremity edema admitted now post a recent hosp italization at [facility] and now in [place] with severe sepsis with healthcare-asso ciated pneumonia, possible gram-positive cocci, possible gram-negative linda with acute kidney injury w ith a creatinine of 4.0. We will discontinue the vancomycin and use meropenem and doxycycline. The patient was given vancomyc in, and workup ordered, kelly cultures, serology. Recommend a CAT scan of the abdomen and pelvis with p.o. contrast only because of the concern about the leukocytosis, and we will make further recommenda tions upon availability of the initial workup results. Demarco Portillo MD cc: [id number] TT: 01/25/2017 10:33:14 Confirmation # [id number] Dictation # [id number] frandy
--- NOTE | 2017-01-25 11:29 | PN ---
DATE: 01/25/2017 REASON FOR CONSULTATION: Positive troponin, acute kidney injury, morbid obesity, altered mental stat us, lethargic. BRIEF CLINICAL HISTORY: This is a 42-year-old morbidly obese male with a past medical history signif icant for diabetes, hypertension, hyperlipidemia, mentally slow, chronic kidney disease, history of d ialysis in 2007 initially said, but now patient said in 1999, but later off dialysis, being followed by the [facility] neph[facility], was in daycare center, found to be dizzy, lethargic, alter ed mental status, so transferred here. The patient is mentally slow, but denies any chest pain, shor tness of breath, any palpitation. History of morbid obesity. Recently discharged from the [facility], according to him it was a GI issue. Denies any chest pain, shortness of breath, a ny palpitation. PHYSICAL EXAMINATION: VITAL SIGNS: Temperature afebrile, heart rate , blood pressure 130/60. HEENT: PERRLA. Extraocular muscles intact. NECK: Supple. No carotid bruits. No thyromegaly. CHEST: Clear to auscultation. HEART: S1, S2 regular. ABDOMEN: Soft. EXTREMITIES: Clubbing, cyanosis negative. BLOOD WORKUP: WBC 19.6, hemoglobin 11. , hematocrit 34.8, platelet count 375. Chemistry shows s odium 140, potassium 3.7, chloride 112, carbon dioxide 20, anion gap of 15, BUN 23, creatinine 2.4. Troponin 0.19. IMPRESSION: Acute kidney injury on chronic renal insufficiency. Yesterday, creatinine was 2.4. Yes terday, creatinine was a 4.1 and troponin 0.6, possibly not significant. Now kidney function is impr oving. Diabetes, hypertension, hyperlipidemia, morbid obesity, sepsis, altered mental status, mental ly slow, hypertension, history of dialysis possibly in 1999 or 2007, asymptomatic. RECOMMENDATION: For now, we will treat patient medically. Once the patient is stable, may consider a stress test. We will follow with you. We will get the lipid profile, TSH, hemoglobin A1c and echo to assess left ventricular function. We will follow with you. Thank you, Dr. Mendoza, for providing us the opportunity in taking care of the patient. No invasive car diac workup at this time as patient is asymptomatic number 1, number 2 the patient has kidney injury with creatinine clearance 20 mL, so the troponin 0.6 is not significant and is trending down. By doi ng the invasive workup, patient would become dialysis dependent. We will follow with you. And since the patient is asymptomatic, risk/benefit ratio was not in favor of having invasive procedure. Garcia Pack MD cc: [id number] TT: 01/25/2017 11:19:49 Confirmation # [id number] Dictation # [id number] en
--- NOTE | 2017-01-25 12:11 | CP.PCM.CON ---
History of Present Illness - History of Present Illness History of Present Illness: 42 yo M w/ pmh of htn, dm (diagnosed 2013), gout and hyperlipidemia, presented from adult day care center after episode of vomiting as well as several episodes of dizziness; nephrology service being consulted for acute renal failure; Patient reports being hospitalized recently at [facility] for about a week with bilateral lower leg cellulitis and was just discharged 3 days ago; patient was sent to ED at the time by residential real estate agent who was treating L lateral malleolus ulcer; patient reports being put on IV antibiotics and having "side effects" of profuse diarrhea during the hospitalization; he was finally discharged on PO antibiotics; After being discharged, patient was tolerating diet well; denies any change in urination or shortness of breath although he does mention previous urinary frequency that has responded well to a supplement; also reports intermittent "brick" colored urine for which he had previously seen a urology; no more diarrhea; vomiting occurred just yesterday, one time; also reports dizziness that made him feel off-balance; Patient also reports taking diclofenac 2-3 times per week for his gout pains which affects various joints (currently affecting bilateral ankles); otherwise had gotten epidural injection last month for back pain associated with L4-L5 lumbar disc herniation; denies any illicit drug use; Review of Systems - Constitutional Constitutional: absent: Anorexia - EENT Eyes: absent: Change in Vision Ears: absent: Decreased Hearing, Tinnitus Nose/Mouth/Throat: Nasal Discharge. absent: Sinus Pain, Sore Throat Additional comments: decreased vision in L eye is chronic; - Cardiovascular Cardiovascular: absent: Chest Pain, Dyspnea on Exertion, Orthopnea - Respiratory Respiratory: absent: Cough, Dyspnea on Exertion - Gastrointestinal Gastrointestinal: Nausea, Vomiting. absent: Abdominal Pain - Genitourinary Genitourinary: Hematuria. absent: Difficulty Urinating, Urinary Frequency - Musculoskeletal Musculoskeletal: Arthralgias - Neurological Neurological: absent: Headaches Additional comments: numbness in feet Past Patient History - Infectious Disease Hx of Infectious Diseases: None - Past Social History Smoking Status: Never Smoked - CARDIAC Hx Cardiac Disorders: Yes Hx Congestive Heart Failure: No Hx Hypercholesterolemia: No Hx Hypertension: Yes - PULMONARY Hx Chronic Obstructive Pulmonary Disease (COPD): No Hx Pneumonia: Yes - NEUROLOGICAL HX Cerebrovascular Accident: No - RENAL Hx Renal Failure: No - ENDOCRINE/METABOLIC Hx Diabetes Mellitus Type 1: No Hx Diabetes Mellitus Type 2: Yes Hx Hypothyroidism: No - HEMATOLOGICAL/ONCOLOGICAL Hx Cancer: No - INTEGUMENTARY Other/Comment: MRSA to bilat lower ext ulcers, 5cm x 3cm irregular ulcer to outer left ankle/footm dry feet thick toenails leathery skin to feet, multiple brown skin discolorations, red areas of dry skin and multiple small nodules, rle redness and mutiple brown nodules, +2 pitting edema both feet - MUSCULOSKELETAL/RHEUMATOLOGICAL Hx Arthritis: Yes Hx Rheumatoid Arthritis: No - GASTROINTESTINAL Hx Gastroesophageal Reflux: No - PSYCHIATRIC Hx Substance Use: No - ANESTHESIA Hx Anesthesia: No Meds Allergies/Adverse Reactions: Allergies Allergy/AdvReac Type Severity Reaction Status Date / Time No Known Allergies Allergy Verified 01/24/17 12:47 - Medications Medications: Current Medications Acetaminophen (Tylenol 325mg Tab) 650 mg PO Q6H PRN PRN Reason: Pain Albuterol/Ipratropium (Duoneb 3 Mg/0.5 Mg (3 Ml) Ud) 3 ml IH Q2H PRN PRN Reason: Shortness of Breath Atorvastatin Calcium (Lipitor) 10 mg PO 1700 ERASMO Gabapentin (Neurontin) 300 mg PO BID ERASMO PRN Reason: Protocol Last Admin: 01/25/17 10:02 Dose: 300 mg Heparin Sodium (Porcine) (Heparin) 5,000 units SC Q12 ERASMO PRN Reason: Protocol Last Admin: 01/25/17 10:03 Dose: 5,000 units Doxycycline Hyclate 100 mg/ (Sodium Chloride) 100 mls @ 100 mls/hr IVPB Q12 ERASMO PRN Reason: Protocol Last Admin: 01/25/17 10:03 Dose: 100 mls/hr Meropenem 1g/NS 100mL IVPB (Meropenem 1g/Ns 100ml Ivpb) 1 gm in 100 mls @ 100 mls/hr IVPB Q12 ERASMO PRN Reason: Protocol Stop: 01/31/17 23:31 Last Admin: 01/25/17 00:07 Dose: 100 mls/hr Insulin Human Regular (Humulin R Low) 0 units SC ACHS ERASMO PRN Reason: Protocol Last Admin: 01/25/17 08:42 Dose: Not Given Pantoprazole Sodium (Protonix Inj) 40 mg IVP DAILY [facility] Last Admin: 01/25/17 10:03 Dose: 40 mg Physical Exam - Constitutional Appears: Non-toxic, No Acute Distress - Head Exam Head Exam: NORMAL INSPECTION - Eye Exam Eye Exam: EOMI, Normal appearance. absent: Scleral icterus - ENT Exam ENT Exam: Mucous Membranes Moist - Neck Exam Additional comments: short neck with wide circumference; - Respiratory Exam Respiratory Exam: Clear to Auscultation Bilateral. absent: Rales, Rhonchi, Wheezes Additional comments: Decreased breath sounds on R lung hernandez; - Cardiovascular Exam Cardiovascular Exam: REGULAR RHYTHM, +S1, +S2. absent: Diastolic murmur, Gallop - GI/Abdominal Exam GI & Abdominal Exam: Soft. absent: Distended, Tenderness - Exam Exam: absent: Bladder Distension - Extremities Exam Extremities exam: Positive for: normal capillary refill, pedal pulses present Additional comments: bilateral lower leg moderately edematous; - Neurological Exam Neurological exam: Alert, Oriented x3 Additional comments: 5/5 motor strength in b/l UE and LE - Psychiatric Exam Psychiatric exam: Normal Affect, Normal Mood - Skin Skin Exam: Normal Color, Warm Additional comments: acanthosis nigricans on back of neck; healing bullous lesions of bilateral lower legs; Results - Vital Signs Recent Vital Signs: Last Vital Signs Temp 97.7 F 01/25/17 08:00 Pulse 75 01/25/17 11:01 Resp 28 H 01/25/17 11:01 BP 117/45 L 01/25/17 11:01 Pulse Ox 96 01/25/17 11:01 - Labs Result Diagrams: 01/24/17 13:43 01/25/17 09:35 Labs: Laboratory Results - last 24 hr 01/24/17 01/24/17 01/24/17 16:00 16:15 16:51 pCO2 55 H pO2 55.0 L HCO3 23.6 ABG pH 7.24 L ABG Total CO2 25.3 ABG O2 Saturation 88.6 L ABG O2 Content 12.9 L ABG Base Excess -4.1 L ABG Hemoglobin 10.6 L ABG Carboxyhemoglobin 2.0 H POC ABG HHb (Measured) 11.1 H ABG Methemoglobin 0.5 ABG O2 Capacity 14.6 L ABG Potassium Hgb O2 Saturation 86.4 L Sodium Chloride Glucose Lactate FiO2 35.0 Potassium Carbon Dioxide Anion Gap BUN Creatinine Est GFR ( Amer) Est GFR (Non-Af Amer) POC Glucose (mg/dL) Random Glucose Calcium Phosphorus Magnesium Total Bilirubin AST ALT Alkaline Phosphatase Lactate Dehydrogenase Total Creatine Kinase Troponin I Total Protein Albumin Globulin Albumin/Globulin Ratio Triglycerides Cholesterol LDL Cholesterol Direct HDL Cholesterol Arterial Blood Potassium Ur Random Creatinine Ur Random Sodium Ur Random Potassium Alcohol, Quantitative < 10 Influenza Typ A,B (EIA) Ur L.pneumophila Ag Negative 01/24/17 01/24/17 01/24/17 16:51 16:51 19:32 pCO2 pO2 HCO3 ABG pH ABG Total CO2 ABG O2 Saturation ABG O2 Content ABG Base Excess ABG Hemoglobin ABG Carboxyhemoglobin POC ABG HHb (Measured) ABG Methemoglobin ABG O2 Capacity ABG Potassium Hgb O2 Saturation Sodium Chloride Glucose Lactate FiO2 Potassium Carbon Dioxide Anion Gap BUN Creatinine Est GFR ( Amer) Est GFR (Non-Af Amer) POC Glucose (mg/dL) Random Glucose Calcium Phosphorus Magnesium Total Bilirubin AST ALT Alkaline Phosphatase Lactate Dehydrogenase Total Creatine Kinase Troponin I 0.49 H* D Total Protein Albumin Globulin Albumin/Globulin Ratio Triglycerides Cholesterol LDL Cholesterol Direct HDL Cholesterol Arterial Blood Potassium Ur Random Creatinine 806 Ur Random Sodium 12 Ur Random Potassium 22.3 Alcohol, Quantitative Influenza Typ A,B (EIA) Negative for flu a/b Ur L.pneumophila Ag 01/24/17 01/24/17 01/25/17 21:58 23:40 09:35 pCO2 47 H pO2 81.0 HCO3 18.8 L ABG pH 7.21 L ABG Total CO2 20.2 L ABG O2 Saturation 98.0 ABG O2 Content ABG Base Excess -9.0 L ABG Hemoglobin ABG Carboxyhemoglobin POC ABG HHb (Measured) ABG Methemoglobin ABG O2 Capacity ABG Potassium 3.1 L Hgb O2 Saturation Sodium 144.0 143 Chloride 119.0 H 112 H Glucose 97 Lactate 1.0 FiO2 60.0 Potassium 3.7 Carbon Dioxide 20 L Anion Gap 15 BUN 23 H Creatinine 2.4 H Est GFR ( Amer) 36 Est GFR (Non-Af Amer) 30 POC Glucose (mg/dL) 98 Random Glucose 95 Calcium 6.3 L* Phosphorus 3.3 Magnesium 1.5 L Total Bilirubin 0.5 AST 22 ALT 39 Alkaline Phosphatase 36 L Lactate Dehydrogenase 546 Total Creatine Kinase 68 Troponin I 0.19 H* D Total Protein 5.3 L Albumin 2.6 L Globulin 2.7 Albumin/Globulin Ratio 1.0 L Triglycerides 178 H Cholesterol 54 L LDL Cholesterol Direct < 30 HDL Cholesterol 20 L Arterial Blood Potassium 3.1 L Ur Random Creatinine Ur Random Sodium Ur Random Potassium Alcohol, Quantitative Influenza Typ A,B (EIA) Ur L.pneumophila Ag 01/25/17 09:35 pCO2 39 pO2 129.0 H HCO3 21.0 ABG pH 7.34 L ABG Total CO2 22.2 ABG O2 Saturation 99.7 H ABG O2 Content ABG Base Excess -4.4 L ABG Hemoglobin ABG Carboxyhemoglobin POC ABG HHb (Measured) ABG Methemoglobin ABG O2 Capacity ABG Potassium 3.6 Hgb O2 Saturation Sodium 143.0 Chloride 119.0 H Glucose 103 Lactate 0.7 FiO2 60.0 Potassium Carbon Dioxide Anion Gap BUN Creatinine Est GFR ( Amer) Est GFR (Non-Af Amer) POC Glucose (mg/dL) Random Glucose Calcium Phosphorus Magnesium Total Bilirubin AST ALT Alkaline Phosphatase Lactate Dehydrogenase Total Creatine Kinase Troponin I Total Protein Albumin Globulin Albumin/Globulin Ratio Triglycerides Cholesterol LDL Cholesterol Direct HDL Cholesterol Arterial Blood Potassium 3.6 Ur Random Creatinine Ur Random Sodium Ur Random Potassium Alcohol, Quantitative Influenza Typ A,B (EIA) Ur L.pneumophila Ag - Imaging and Cardiology urine micro Status: Image reviewed by me Additional comment: Urine micro with granular debris but no overt granular casts; renal tubular epithelial cells 1-2/hpf; >10 WBC/hpf; infrequent isomorphic RBC's; no cellular casts; Assessment & Plan (1) Acute renal failure Assessment and Plan: Appears to be pre-renal etiology with markedly low Fe Na and rapid improvement of renal function with IVF; likely caused by decreased renal perfusion in the setting of severe sepsis and worsened by loss of renal autoregulation with NSAID use and being on CHARLA blockade with losartan; however, patient may still have an element of tubular injury with urine micro showing renal tubular epithelial cells and so complete renal recovery may be delayed; furthermore, baseline renal function unknown at this point particularly with 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 and keeping in mind that each ATN insult will likely have some permanent loss of renal function associated with it (although renal US showing relatively preserved cortical thickness and echogenicity); also with significant pyuria on urine micro; therefore if urine culture negative, AIN should be in the differential; -IVF w/ NS at 125 cc/hr -Avoid nephrotoxic agents -Obtain records from [facility]; Status: Acute (2) Severe sepsis Assessment and Plan: On doxycycline and meropenem; may need to increase frequency of meropenem to q8h as renal function continues to improve; no renal dose adjustment needed for doxycycline; -f/u blood and urine cultures Status: Acute (3) HTN (hypertension) Assessment and Plan: Was on nebivolol, amlodipine, losartan and hctz at home; no longer hypotensive; can start back nebivolol and amlodipine in next 1-2 days if patient becomes hypertensive; ARB and diuretic can be restarted as outpatient; Status: Chronic (4) Diabetes Assessment and Plan: With diabetic neuropathy; UA showing proteinuria but this is in the setting of ERICA; on gabapentin 300 mg bid at home, no need to reduce dose currently as renal function is improving; Status: Chronic (5) Gout Assessment and Plan: History is atypical with patient describing a polyarthritis; no overt flare currently although he does report recent bilateral ankle involvement; -check uric acid level, CATALINA -avoid all NSAIDS currently -can use colchicine for gout flare Status: Chronic (6) Electrolyte abnormality Assessment and Plan: Mild non-AG metabolic acidosis in the setting of renal failure; also initially with respiratory acidosis; hypocalcemia may have been induced by giving bicarbonate containing IVF; non-AG metabolic acidosis may persist in the setting of volume replenishment with chloride containing IVF, no need to treat for now; -continue to hold bicarb replenishment Status: Acute
--- NOTE | 2017-01-25 13:18 | CP.PCM.PN ---
<ChikaNancy - Last Filed: 01/25/17 13:15> Subjective - Date & Time of Evaluation Date of Evaluation: 01/25/17 Time of Evaluation: 08:00 - Subjective Subjective: Hospitalist Progress Note Patient seen and examined at bedside. There were no acute overnight events. He is much more awake today. He reports he was recently d/c from [facility] for cellulitis last week. He reports having history of MRSA in his extremity wounds. Records have been requested. As for today, he says he has pain in both his legs. He denies CP, SOB, n/v/d, numbness/tingling, dysuria or hematuria. Although he did say he has had red and manish colored urine in the past. Objective - Vital Signs/Intake and Output Vital Signs (last 24 hours): Temp Pulse Resp BP Pulse Ox 97.1 F L 82 20 128/67 94 L 01/25/17 12:00 01/25/17 13:00 01/25/17 12:50 01/25/17 13:00 01/25/17 13:00 Intake and Output: 01/25/17 01/25/17 06:59 18:59 Intake Total 1800 Output Total 200 Balance 1600 - Medications Medications: Current Medications Acetaminophen (Tylenol 325mg Tab) 650 mg PO Q6H PRN PRN Reason: Pain Albuterol/Ipratropium (Duoneb 3 Mg/0.5 Mg (3 Ml) Ud) 3 ml IH Q2H PRN PRN Reason: Shortness of Breath Atorvastatin Calcium (Lipitor) 10 mg PO 1700 ERASMO Gabapentin (Neurontin) 300 mg PO BID ERASMO PRN Reason: Protocol Last Admin: 01/25/17 10:02 Dose: 300 mg Heparin Sodium (Porcine) (Heparin) 5,000 units SC Q12 ERASMO PRN Reason: Protocol Last Admin: 01/25/17 10:03 Dose: 5,000 units Doxycycline Hyclate 100 mg/ (Sodium Chloride) 100 mls @ 100 mls/hr IVPB Q12 ERASMO PRN Reason: Protocol Last Admin: 01/25/17 10:03 Dose: 100 mls/hr Meropenem 1g/NS 100mL IVPB (Meropenem 1g/Ns 100ml Ivpb) 1 gm in 100 mls @ 100 mls/hr IVPB Q12 ERASMO PRN Reason: Protocol Stop: 05/03/17 23:31 Last Admin: 01/25/17 00:07 Dose: 100 mls/hr Sodium Chloride (Sodium Chloride 0.9%) 1,000 mls @ 125 mls/hr IV .Q8H [facility] Insulin Human Regular (Humulin R Low) 0 units SC ACHS ERASMO PRN Reason: Protocol Last Admin: 01/25/17 12:19 Dose: Not Given Pantoprazole Sodium (Protonix Inj) 40 mg IVP DAILY [facility] Last Admin: 01/25/17 10:03 Dose: 40 mg - Labs Labs: 01/25/17 09:35 PT 10.7 Seconds (9.9-11.8) 01/24/17 13:43 INR 0.99 (0.93-1.08) 01/24/17 13:43 APTT 26.4 Seconds (23.7-30.8) 01/24/17 13:43 - Constitutional Appears: No Acute Distress - Head Exam Head Exam: ATRAUMATIC, NORMAL INSPECTION, NORMOCEPHALIC - Eye Exam Eye Exam: Normal appearance Pupil Exam: NORMAL ACCOMODATION - ENT Exam ENT Exam: Mucous Membranes Moist - Respiratory Exam Respiratory Exam: Rhonchi, NORMAL BREATHING PATTERN. absent: Rales, Wheezes - Cardiovascular Exam Cardiovascular Exam: REGULAR RHYTHM, +S1, +S2. absent: Gallop, Rubs, Murmur - GI/Abdominal Exam GI & Abdominal Exam: Soft, Normal Bowel Sounds. absent: Rigid, Tenderness, Mass , Rebound - Extremities Exam Extremities Exam: Pedal Edema, Tenderness Additional comments: L lateral malleoli ulcer. +3 pitting edema bilaterally Assessment and Plan - Assessment and Plan (Free Text) Assessment: This is a 42Y M PMH HTN, HLD, DM, gout admitted for sepsis, AMS, ERICA, and elevated troponin. Plan: 1. Sepsis - secondary to bilat upper lobe pneumonia - afebrile - Doxy and Merrem - PCT 0.66 - Urine culture and blood culture pending - Legionella and strep pending - ID consulted- ordered CT abd/pelvis - Stool studies, C.diff pending 2. AMS- resolved - A&O x 3 - CT head neg - Dysphagia diet - aspiration precautions 3. ERICA - Cr: 2.4- baseline unknown - FeNa<1%, pre-renal ERICA- can be due to Diclofenac use - Nephro consulted - Will continue to monitor electrolytes and replace as needed 4. Elevated troponin - Troponin 0.19 trended down from 0.66 - Cardiology consulted - Echo, TSH, HgbA1c pending 5. HTN - Hold home antihypertensives - NS@125- will continue to monitor vitals 6. DM - HgbA1c pending - ISS - BGM ACHS - maintain euglycemia - Continue neurontin for neuropathy 7. HLD - Continue Lipitor 8. Hx of gout - Hold allopurinol GI ppx: Protonix DVT ppx: Heparin Patient is difficult IV access. PICC placed today. Mother was attempted to be contacted for further history on patient. Will attempt once again in AM. Case seen, reviewed and discussed with attending Jenny Farr PGY1 <Makayla Mendoza - Last Filed: 01/27/17 12:58> Objective - Vital Signs/Intake and Output Vital Signs (last 24 hours): Temp Pulse Resp BP Pulse Ox 98.0 F 95 H 20 145/91 H 100 01/27/17 06:00 01/27/17 06:00 01/27/17 06:00 01/27/17 09:22 01/27/17 06:00 Intake and Output: 01/27/17 01/27/17 06:59 18:59 Intake Total 420 180 Output Total 500 Balance -80 180 - Medications Medications: Current Medications Acetaminophen (Tylenol 325mg Tab) 650 mg PO Q6H PRN PRN Reason: Pain Last Admin: 01/25/17 16:08 Dose: 650 mg Albuterol/Ipratropium (Duoneb 3 Mg/0.5 Mg (3 Ml) Ud) 3 ml IH Q2H PRN PRN Reason: Shortness of Breath Amlodipine Besylate (Norvasc) 10 mg PO DAILY [facility] Last Admin: 01/27/17 09:22 Dose: 10 mg Atorvastatin Calcium (Lipitor) 10 mg PO 1700 [facility] Last Admin: 01/26/17 17:27 Dose: 10 mg Doxycycline Hyclate (Doryx) 100 mg PO Q12 ERASMO PRN Reason: Protocol Stop: 02/05/17 22:01 Last Admin: 01/27/17 09:22 Dose: 100 mg Ferrous Sulfate (Feosol) 324 mg PO BID ERASMO Gabapentin (Neurontin) 300 mg PO BID ERASMO PRN Reason: Protocol Last Admin: 01/27/17 09:22 Dose: 300 mg Guaifenesin/Dextromethorphan (Robitussin Dm) 5 ml PO Q4H PRN PRN Reason: Cough and congestion Heparin Sodium (Porcine) (Heparin) 5,000 units SC Q12 ERASMO PRN Reason: Protocol Last Admin: 01/27/17 09:24 Dose: 5,000 units Hydralazine HCl (Apresoline) 10 mg PO QID PRN PRN Reason: For SBP>170 & diastolic>100 Last Admin: 01/27/17 05:31 Dose: 10 mg Meropenem 1g/NS 100mL IVPB (Meropenem 1g/Ns 100ml Ivpb) 1 gm in 100 mls @ 100 mls/hr IVPB Q12 ERASMO PRN Reason: Protocol Stop: 01/31/17 23:31 Last Admin: 01/27/17 09:23 Dose: 100 mls/hr Sodium Chloride (Sodium Chloride 0.45%) 1,000 mls @ 100 mls/hr IV .Q10H [facility] Last Admin: 01/27/17 04:42 Dose: 100 mls/hr Magnesium Sulfate/Dextrose (Magnesium Sulfate 1 Gm/100 Ml D5w) 1 gm in 100 mls @ 100 mls/hr IVPB Q2H [facility] Stop: 01/27/17 15:44 Insulin Human Regular (Humulin R Low) 0 units SC ACHS ERASMO PRN Reason: Protocol Last Admin: 01/27/17 11:53 Dose: Not Given Losartan Potassium (Cozaar) 100 mg PO DAILY [facility] Last Admin: 01/27/17 10:05 Dose: 100 mg Non-Formulary Medication (Nebivolol [Bystolic]) 10 mg PO DAILY [facility] Last Admin: 01/27/17 09:24 Dose: Not Given Pantoprazole Sodium (Protonix Ec Tab) 40 mg PO ACB [facility] Last Admin: 01/27/17 08:14 Dose: 40 mg - Labs Labs: 01/27/17 07:51 01/27/17 07:51 PT 11.1 Seconds (9.9-11.8) 01/27/17 07:51 INR 1.03 (0.93-1.08) 01/27/17 07:51 APTT 26.4 Seconds (23.7-30.8) 01/24/17 13:43 Attending/Attestation - Attestation I have personally seen and examined this patient.: Yes I have fully participated in the care of the patient.: Yes I have reviewed all pertinent clinical information, including history, physical exam and plan: Yes Notes (Text): I have seen and examined patient with the resident. This is 42 year old male with history of HTN, dyslipidemia, DM-2, gout who was sent from day care for evaluation of dizziness and generalized weakness and found to have sepsis secondary to bilateral upper lobe pneumonia, acute kidney injury and elevated troponins. Continue meropenem and doxy as per ID. Cultures and procal pending. He is alert, awake and oriented x3. Creatinine improved to 2.4. FeNa suggestive of pre renal etiology. Troponin elevation is probably secondary to renal impairment. Will try to obtain records from [facility]. Upon discharge patient will follow up with Dr Marlin Mendoza
[2017-01-25] MEDS: Sodium Chloride 0.9% 1,000 ML IV SCH (13:36)
--- NOTE | 2017-01-25 13:49 | CP.CCUPN ---
<Mt Martinez - Last Filed: 01/25/17 13:54> CCU Subjective - Physician Review Subjective (Free Text): Pt was seen and examined at bedside. Pt appears much more alert than yesterday. Pt able to answer questions in full sentences. Pt states he is not in any pain. Pt had BIPAP therapy overnight with no acute events. Denies CP, SOB, N/V/D. CCU Objective - Vital Signs / Intake & Output Vital Signs (Last 4 hours): Vital Signs Temp Pulse Resp BP Pulse Ox 01/25/17 13:34 72 01/25/17 13:00 82 128/67 94 L 01/25/17 12:50 81 20 91 L 01/25/17 12:40 74 16 95 01/25/17 12:30 82 58 H 94 L 01/25/17 12:20 85 19 97 01/25/17 12:10 84 23 96 01/25/17 12:00 97.1 F L 85 16 115/64 94 L 01/25/17 11:50 73 20 98 01/25/17 11:40 78 28 H 100 01/25/17 11:30 83 21 90 L 01/25/17 11:20 80 20 100 01/25/17 11:10 79 92 L 01/25/17 11:01 75 28 H 117/45 L 96 01/25/17 11:00 73 21 94 L 01/25/17 10:50 77 94 L 01/25/17 10:45 88 24 01/25/17 10:44 89 28 H 01/25/17 10:43 79 22 01/25/17 10:40 76 24 95 01/25/17 10:30 76 19 96 01/25/17 10:20 76 24 86 L 01/25/17 10:10 75 24 97 01/25/17 10:00 79 44 H 114/73 94 L 01/25/17 09:50 67 17 100 Intake and Output (Last 8hrs): Intake & Output 01/24/17 01/25/17 01/25/17 22:59 06:59 14:59 Intake Total 1999 1800 Output Total 200 Balance 1999 1600 Weight 275 lb Intake: IV 1999 1800 Right Hand 1999 1800 Output: Urine 200 Urethral (Dye) 200 Other: Voiding Method Indwelling Catheter Indwelling Catheter Indwelling Catheter - Physical Exam Head: Positive for: Atraumatic, Normocephalic Pupils: Positive for: PERRL Extroacular Muscles: Positive for: EOMI Conjunctiva: Positive for: Normal Mouth: Positive for: Moist Mucous Membranes Pharnyx: Positive for: Normal. Negative for: ERYTHEMA Nose (Internal): Positive for: Normal Inspection Neck: Positive for: Normal Range of Motion. Negative for: Meningeal Signs, MIDLINE TENDERNESS, Paraspinal Tenderness Respiratory/Chest: Positive for: Clear to Auscultation, Decreased Breath Sounds. Negative for: Respiratory Distress, Accessory Muscle Use, Rhonchi Cardiovascular: Positive for: Regular Rate and Rhythm, Normal S1, S2. Negative for: Murmurs Abdomen: Positive for: Normal Bowel Sounds. Negative for: Tenderness, Distention, Peritoneal Signs Back: Positive for: Normal Inspection Upper Extremity: Positive for: Normal Inspection. Negative for: Cyanosis, Edema Lower Extremity: Positive for: Normal Inspection. Negative for: Edema Neurological: Positive for: GCS=15, CN II-XII Intact, Speech Normal Skin: Positive for: Warm, Dry, Normal Color. Negative for: Rashes Psychiatric: Positive for: Alert, Oriented x 3, Normal Insight, Normal Concentration, Lethargic - Medications Active Medications: Active Medications Generic Name Dose Route Start Last Admin Trade Name Freq PRN Reason Stop Dose Admin Acetaminophen 650 mg 01/24/17 16:27 Tylenol 325mg Tab PO Q6H PRN Pain Albuterol/Ipratropium 3 ml 01/24/17 16:27 Duoneb 3 Mg/0.5 Mg (3 Ml) Ud IH Q2H PRN Shortness of Breath Atorvastatin Calcium 10 mg 01/25/17 17:00 Lipitor PO 1700 ERASMO Gabapentin 300 mg 01/24/17 18:00 01/25/17 10:02 Neurontin PO 300 mg BID ERASMO Administration Protocol Heparin Sodium (Porcine) 5,000 units 01/24/17 22:00 01/25/17 10:03 Heparin SC 5,000 units Q12 ERASMO Administration Protocol Doxycycline Hyclate 100 mg/ 100 mls @ 100 mls/hr 01/24/17 23:30 01/25/17 10: 03 Sodium Chloride IVPB 100 mls/hr Q12 ERASMO Administration Protocol Meropenem 1g/NS 100mL IVPB 1 gm in 100 mls @ 100 mls/hr 01/24/17 23:30 00:07 Meropenem 1g/Ns 100ml Ivpb IVPB 01/31/17 23:31 100 mls/hr Q12 ERASMO Administration Protocol Sodium Chloride 1,000 mls @ 125 mls/hr 01/25/17 12:30 01/25/17 13:36 Sodium Chloride 0.9% IV 125 mls/hr .Q8H ERASMO Administration Insulin Human Regular 0 units 01/24/17 22:00 01/25/17 12:19 Humulin R Low SC Not Given ACHS ERASMO Protocol Pantoprazole Sodium 40 mg 01/25/17 10:00 01/25/17 10:03 Protonix Inj IVP 40 mg DAILY ERASMO Administration - Patient Studies Lab Studies: Microbiology Studies 01/24/17 19:00 Wound Culture - Preliminary Ankle - Left NO GROWTH AFTER 24 HOURS Lab Studies 01/25/17 01/25/17 01/24/17 Range/Units 09:35 09:35 23:40 pCO2 39 47 H (35-45) mm/Hg pO2 129.0 H 81.0 (80-100) mm/Hg HCO3 21.0 18.8 L (21-28) mmol/L ABG pH 7.34 L 7.21 L (7.35-7.45) ABG Total CO2 22.2 20.2 L (22-28) mmol.L ABG O2 Saturation 99.7 H 98.0 (95-98) % ABG O2 Content (15-23) ML/dl ABG Base Excess -4.4 L -9.0 L (-2.0-3.0) mmol/L ABG Hemoglobin (11.7-17.4) g/dL ABG Carboxyhemoglobin (0.5-1.5) % POC ABG HHb (Measured) (0-5) % ABG Methemoglobin (0.0-3.0) % ABG O2 Capacity (16-24) mL/dl ABG Potassium 3.6 3.1 L (3.6-5.2) mmol/L Hgb O2 Saturation (95.0-98.0) % Sodium 143.0 143 144.0 (132-148) mmol/L Chloride 119.0 H 112 H 119.0 H (98-107) mmol/L Glucose 103 97 (75-110) mg/dl Lactate 0.7 1.0 (0.7-2.1) mmol/L FiO2 60.0 60.0 % Potassium 3.7 (3.6-5.0) mmol/L Carbon Dioxide 20 L (21-33) mmol/L Anion Gap 15 (10-20) BUN 23 H (7-21) mg/dL Creatinine 2.4 H (0.5-1.4) mg/dL Est GFR ( Amer) 36 Est GFR (Non-Af Amer) 30 POC Glucose (mg/dL) (65-110) mg/dL Random Glucose 95 (70-110) mg/dL Calcium 6.3 L* (8.4-10.5) mg/dL Phosphorus 3.3 (2.5-4.5) mg/dL Magnesium 1.5 L (1.7-2.2) mg/dL Total Bilirubin 0.5 (0.2-1.3) mg/dL AST 22 (15-59) U/L ALT 39 (7-56) U/L Alkaline Phosphatase 36 L (38-133) U/L Lactate Dehydrogenase 546 (333-699) U/L Total Creatine Kinase 68 (35-230) U/L Troponin I 0.19 H* D ng/mL Total Protein 5.3 L (5.8-8.3) g/dL Albumin 2.6 L (3.0-4.8) g/dL Globulin 2.7 gm/dL Albumin/Globulin Ratio 1.0 L (1.1-1.8) Triglycerides 178 H (35-160) mg/dL Cholesterol 54 L (130-200) mg/dL LDL Cholesterol Direct < 30 (0-129) mg/dL HDL Cholesterol 20 L (29-60) mg/dL Arterial Blood Potassium 3.6 3.1 L (3.6-5.2) mmol/L Ur Random Creatinine mg/dL Ur Random Sodium meq/L Ur Random Potassium meq/L Alcohol, Quantitative (0-10) mg/dL Influenza Typ A,B (EIA) (NEGATIVE) Ur L.pneumophila Ag (NEGATIVE) 01/24/17 01/24/17 01/24/17 Range/Units 21:58 19:32 16:51 pCO2 (35-45) mm/Hg pO2 (80-100) mm/Hg HCO3 (21-28) mmol/L ABG pH (7.35-7.45) ABG Total CO2 (22-28) mmol.L ABG O2 Saturation (95-98) % ABG O2 Content (15-23) ML/dl ABG Base Excess (-2.0-3.0) mmol/L ABG Hemoglobin (11.7-17.4) g/dL ABG Carboxyhemoglobin (0.5-1.5) % POC ABG HHb (Measured) (0-5) % ABG Methemoglobin (0.0-3.0) % ABG O2 Capacity (16-24) mL/dl ABG Potassium (3.6-5.2) mmol/L Hgb O2 Saturation (95.0-98.0) % Sodium (132-148) mmol/L Chloride (98-107) mmol/L Glucose (75-110) mg/dl Lactate (0.7-2.1) mmol/L FiO2 % Potassium (3.6-5.0) mmol/L Carbon Dioxide (21-33) mmol/L Anion Gap (10-20) BUN (7-21) mg/dL Creatinine (0.5-1.4) mg/dL Est GFR ( Amer) Est GFR (Non-Af Amer) POC Glucose (mg/dL) 98 (65-110) mg/dL Random Glucose (70-110) mg/dL Calcium (8.4-10.5) mg/dL Phosphorus (2.5-4.5) mg/dL Magnesium (1.7-2.2) mg/dL Total Bilirubin (0.2-1.3) mg/dL AST (15-59) U/L ALT (7-56) U/L Alkaline Phosphatase (38-133) U/L Lactate Dehydrogenase (333-699) U/L Total Creatine Kinase (35-230) U/L Troponin I 0.49 H* D ng/mL Total Protein (5.8-8.3) g/dL Albumin (3.0-4.8) g/dL Globulin gm/dL Albumin/Globulin Ratio (1.1-1.8) Triglycerides (35-160) mg/dL Cholesterol (130-200) mg/dL LDL Cholesterol Direct (0-129) mg/dL HDL Cholesterol (29-60) mg/dL Arterial Blood Potassium (3.6-5.2) mmol/L Ur Random Creatinine mg/dL Ur Random Sodium meq/L Ur Random Potassium meq/L Alcohol, Quantitative (0-10) mg/dL Influenza Typ A,B (EIA) Negative for flu a/b (NEGATIVE) Ur L.pneumophila Ag (NEGATIVE) 01/24/17 01/24/17 01/24/17 Range/Units 16:51 16:51 16:15 pCO2 (35-45) mm/Hg pO2 (80-100) mm/Hg HCO3 (21-28) mmol/L ABG pH (7.35-7.45) ABG Total CO2 (22-28) mmol.L ABG O2 Saturation (95-98) % ABG O2 Content (15-23) ML/dl ABG Base Excess (-2.0-3.0) mmol/L ABG Hemoglobin (11.7-17.4) g/dL ABG Carboxyhemoglobin (0.5-1.5) % POC ABG HHb (Measured) (0-5) % ABG Methemoglobin (0.0-3.0) % ABG O2 Capacity (16-24) mL/dl ABG Potassium (3.6-5.2) mmol/L Hgb O2 Saturation (95.0-98.0) % Sodium (132-148) mmol/L Chloride (98-107) mmol/L Glucose (75-110) mg/dl Lactate (0.7-2.1) mmol/L FiO2 % Potassium (3.6-5.0) mmol/L Carbon Dioxide (21-33) mmol/L Anion Gap (10-20) BUN (7-21) mg/dL Creatinine (0.5-1.4) mg/dL Est GFR ( Amer) Est GFR (Non-Af Amer) POC Glucose (mg/dL) (65-110) mg/dL Random Glucose (70-110) mg/dL Calcium (8.4-10.5) mg/dL Phosphorus (2.5-4.5) mg/dL Magnesium (1.7-2.2) mg/dL Total Bilirubin (0.2-1.3) mg/dL AST (15-59) U/L ALT (7-56) U/L Alkaline Phosphatase (38-133) U/L Lactate Dehydrogenase (333-699) U/L Total Creatine Kinase (35-230) U/L Troponin I ng/mL Total Protein (5.8-8.3) g/dL Albumin (3.0-4.8) g/dL Globulin gm/dL Albumin/Globulin Ratio (1.1-1.8) Triglycerides (35-160) mg/dL Cholesterol (130-200) mg/dL LDL Cholesterol Direct (0-129) mg/dL HDL Cholesterol (29-60) mg/dL Arterial Blood Potassium (3.6-5.2) mmol/L Ur Random Creatinine 806 mg/dL Ur Random Sodium 12 meq/L Ur Random Potassium 22.3 meq/L Alcohol, Quantitative < 10 (0-10) mg/dL Influenza Typ A,B (EIA) (NEGATIVE) Ur L.pneumophila Ag Negative (NEGATIVE) 01/24/17 Range/Units 16:00 pCO2 55 H (35-45) mm/Hg pO2 55.0 L (80-100) mm/Hg HCO3 23.6 (21-28) mmol/L ABG pH 7.24 L (7.35-7.45) ABG Total CO2 25.3 (22-28) mmol.L ABG O2 Saturation 88.6 L (95-98) % ABG O2 Content 12.9 L (15-23) ML/dl ABG Base Excess -4.1 L (-2.0-3.0) mmol/L ABG Hemoglobin 10.6 L (11.7-17.4) g/dL ABG Carboxyhemoglobin 2.0 H (0.5-1.5) % POC ABG HHb (Measured) 11.1 H (0-5) % ABG Methemoglobin 0.5 (0.0-3.0) % ABG O2 Capacity 14.6 L (16-24) mL/dl ABG Potassium (3.6-5.2) mmol/L Hgb O2 Saturation 86.4 L (95.0-98.0) % Sodium (132-148) mmol/L Chloride (98-107) mmol/L Glucose (75-110) mg/dl Lactate (0.7-2.1) mmol/L FiO2 35.0 % Potassium (3.6-5.0) mmol/L Carbon Dioxide (21-33) mmol/L Anion Gap (10-20) BUN (7-21) mg/dL Creatinine (0.5-1.4) mg/dL Est GFR ( Amer) Est GFR (Non-Af Amer) POC Glucose (mg/dL) (65-110) mg/dL Random Glucose (70-110) mg/dL Calcium (8.4-10.5) mg/dL Phosphorus (2.5-4.5) mg/dL Magnesium (1.7-2.2) mg/dL Total Bilirubin (0.2-1.3) mg/dL AST (15-59) U/L ALT (7-56) U/L Alkaline Phosphatase (38-133) U/L Lactate Dehydrogenase (333-699) U/L Total Creatine Kinase (35-230) U/L Troponin I ng/mL Total Protein (5.8-8.3) g/dL Albumin (3.0-4.8) g/dL Globulin gm/dL Albumin/Globulin Ratio (1.1-1.8) Triglycerides (35-160) mg/dL Cholesterol (130-200) mg/dL LDL Cholesterol Direct (0-129) mg/dL HDL Cholesterol (29-60) mg/dL Arterial Blood Potassium (3.6-5.2) mmol/L Ur Random Creatinine mg/dL Ur Random Sodium meq/L Ur Random Potassium meq/L Alcohol, Quantitative (0-10) mg/dL Influenza Typ A,B (EIA) (NEGATIVE) Ur L.pneumophila Ag (NEGATIVE) Laboratory Results - last 24 hr 01/24/17 01/24/17 01/24/17 16:00 16:15 16:51 pCO2 55 H pO2 55.0 L HCO3 23.6 ABG pH 7.24 L ABG Total CO2 25.3 ABG O2 Saturation 88.6 L ABG O2 Content 12.9 L ABG Base Excess -4.1 L ABG Hemoglobin 10.6 L ABG Carboxyhemoglobin 2.0 H POC ABG HHb (Measured) 11.1 H ABG Methemoglobin 0.5 ABG O2 Capacity 14.6 L ABG Potassium Hgb O2 Saturation 86.4 L Sodium Chloride Glucose Lactate FiO2 35.0 Potassium Carbon Dioxide Anion Gap BUN Creatinine Est GFR ( Amer) Est GFR (Non-Af Amer) POC Glucose (mg/dL) Random Glucose Calcium Phosphorus Magnesium Total Bilirubin AST ALT Alkaline Phosphatase Lactate Dehydrogenase Total Creatine Kinase Troponin I Total Protein Albumin Globulin Albumin/Globulin Ratio Triglycerides Cholesterol LDL Cholesterol Direct HDL Cholesterol Arterial Blood Potassium Ur Random Creatinine Ur Random Sodium Ur Random Potassium Alcohol, Quantitative < 10 Influenza Typ A,B (EIA) Ur L.pneumophila Ag Negative 01/24/17 01/24/17 01/24/17 16:51 16:51 19:32 pCO2 pO2 HCO3 ABG pH ABG Total CO2 ABG O2 Saturation ABG O2 Content ABG Base Excess ABG Hemoglobin ABG Carboxyhemoglobin POC ABG HHb (Measured) ABG Methemoglobin ABG O2 Capacity ABG Potassium Hgb O2 Saturation Sodium Chloride Glucose Lactate FiO2 Potassium Carbon Dioxide Anion Gap BUN Creatinine Est GFR ( Amer) Est GFR (Non-Af Amer) POC Glucose (mg/dL) Random Glucose Calcium Phosphorus Magnesium Total Bilirubin AST ALT Alkaline Phosphatase Lactate Dehydrogenase Total Creatine Kinase Troponin I 0.49 H* D Total Protein Albumin Globulin Albumin/Globulin Ratio Triglycerides Cholesterol LDL Cholesterol Direct HDL Cholesterol Arterial Blood Potassium Ur Random Creatinine 806 Ur Random Sodium 12 Ur Random Potassium 22.3 Alcohol, Quantitative Influenza Typ A,B (EIA) Negative for flu a/b Ur L.pneumophila Ag 01/24/17 01/24/17 01/25/17 21:58 23:40 09:35 pCO2 47 H pO2 81.0 HCO3 18.8 L ABG pH 7.21 L ABG Total CO2 20.2 L ABG O2 Saturation 98.0 ABG O2 Content ABG Base Excess -9.0 L ABG Hemoglobin ABG Carboxyhemoglobin POC ABG HHb (Measured) ABG Methemoglobin ABG O2 Capacity ABG Potassium 3.1 L Hgb O2 Saturation Sodium 144.0 143 Chloride 119.0 H 112 H Glucose 97 Lactate 1.0 FiO2 60.0 Potassium 3.7 Carbon Dioxide 20 L Anion Gap 15 BUN 23 H Creatinine 2.4 H Est GFR ( Amer) 36 Est GFR (Non-Af Amer) 30 POC Glucose (mg/dL) 98 Random Glucose 95 Calcium 6.3 L* Phosphorus 3.3 Magnesium 1.5 L Total Bilirubin 0.5 AST 22 ALT 39 Alkaline Phosphatase 36 L Lactate Dehydrogenase 546 Total Creatine Kinase 68 Troponin I 0.19 H* D Total Protein 5.3 L Albumin 2.6 L Globulin 2.7 Albumin/Globulin Ratio 1.0 L Triglycerides 178 H Cholesterol 54 L LDL Cholesterol Direct < 30 HDL Cholesterol 20 L Arterial Blood Potassium 3.1 L Ur Random Creatinine Ur Random Sodium Ur Random Potassium Alcohol, Quantitative Influenza Typ A,B (EIA) Ur L.pneumophila Ag 01/25/17 09:35 pCO2 39 pO2 129.0 H HCO3 21.0 ABG pH 7.34 L ABG Total CO2 22.2 ABG O2 Saturation 99.7 H ABG O2 Content ABG Base Excess -4.4 L ABG Hemoglobin ABG Carboxyhemoglobin POC ABG HHb (Measured) ABG Methemoglobin ABG O2 Capacity ABG Potassium 3.6 Hgb O2 Saturation Sodium 143.0 Chloride 119.0 H Glucose 103 Lactate 0.7 FiO2 60.0 Potassium Carbon Dioxide Anion Gap BUN Creatinine Est GFR ( Amer) Est GFR (Non-Af Amer) POC Glucose (mg/dL) Random Glucose Calcium Phosphorus Magnesium Total Bilirubin AST ALT Alkaline Phosphatase Lactate Dehydrogenase Total Creatine Kinase Troponin I Total Protein Albumin Globulin Albumin/Globulin Ratio Triglycerides Cholesterol LDL Cholesterol Direct HDL Cholesterol Arterial Blood Potassium 3.6 Ur Random Creatinine Ur Random Sodium Ur Random Potassium Alcohol, Quantitative Influenza Typ A,B (EIA) Ur L.pneumophila Ag Fingerstick Blood Sugar Results: 137 Critical Care Progress Note - Nutrition Nutrition: Nutrition Category Date Time Status Dysphagia/Modified Consistency Diet [DIET] Diets 01/25/17 Lunch Ordered Assessment/Plan - Assessment and Plan (Free Text) Plan: 42 y/o M with PMH of HTN, HLD, DM, and Gout presents with sepsis secondary to Hospital acquired pneumonia. Pt had recently been [place] [facility] [place]. Pt doing well overnight with no acute events. Pt will remain on Merrem and Doxycycline as per ID. Pt had elevated troponins on admission in the setting of renal failure, which have been downtrending since that time. Pt had poor IV access and had a PICC line placed. WIll continue to observe patient. Consent for medical records from [facility] [place] been sent. Neuro: AAOx3 Monitor for worsening mental status Cardio: Troponins downtrending, likely not cardiac in nature Dr. Pack following Hemodynamically stable Maintain MAP >65 Pulm: BIPAP switched to [place] Merrem and Doxycycline for pneumonia No respiratory distress Maintain Sat O2 >90% GI: Protonix Dysphagia diet as per speech pathologist Endo: ISS Maintain euglycemia Nephro: Renal failure vs CKD Likely prerenal in origin Continue NS @ 125 Hx of temporary dialysis in the past Adequate urine output Maintain euvolemia Heme/ID: Afebrile, leukocytosis from yesterday's labs. Wound, Blood, and urine cultures negative at this time Merrem and Doxycycline Maintain normothermia PPX: Protonix Heparin Seen, reviewed, and discussed with attending Juan PGY-1 <Reji DRUMMOND,Inamumicah H - Last Filed: 01/25/17 14:44> CCU Objective - Vital Signs / Intake & Output Vital Signs (Last 4 hours): Vital Signs Temp Pulse Resp BP Pulse Ox 01/25/17 13:34 72 01/25/17 13:00 82 128/67 94 L 01/25/17 12:50 81 20 91 L 01/25/17 12:40 74 16 95 01/25/17 12:30 82 58 H 94 L 01/25/17 12:20 85 19 97 01/25/17 12:10 84 23 96 01/25/17 12:00 97.1 F L 85 16 115/64 94 L 01/25/17 11:50 73 20 98 01/25/17 11:40 78 28 H 100 01/25/17 11:30 83 21 90 L 01/25/17 11:20 80 20 100 01/25/17 11:10 79 92 L 01/25/17 11:01 75 28 H 117/45 L 96 01/25/17 11:00 73 21 94 L 01/25/17 10:50 77 94 L 01/25/17 10:45 88 24 01/25/17 10:44 89 28 H 01/25/17 10:43 79 22 Intake and Output (Last 8hrs): Intake & Output 01/24/17 01/25/17 01/25/17 22:59 06:59 14:59 Intake Total 1999 1800 Output Total 200 Balance 1999 1600 Weight 275 lb Intake: IV 1999 1800 Right Hand 1999 1800 Output: Urine 200 Urethral (Dye) 200 Other: Voiding Method Indwelling Catheter Indwelling Catheter Indwelling Catheter - Medications Active Medications: Active Medications Generic Name Dose Route Start Last Admin Trade Name Freq PRN Reason Stop Dose Admin Acetaminophen 650 mg 01/24/17 16:27 Tylenol 325mg Tab PO Q6H PRN Pain Albuterol/Ipratropium 3 ml 01/24/17 16:27 Duoneb 3 Mg/0.5 Mg (3 Ml) Ud IH Q2H PRN Shortness of Breath Atorvastatin Calcium 10 mg 01/25/17 17:00 Lipitor PO 1700 ERASMO Gabapentin 300 mg 01/24/17 18:00 01/25/17 10:02 Neurontin PO 300 mg BID ERASMO Administration Protocol Heparin Sodium (Porcine) 5,000 units 01/24/17 22:00 01/25/17 10:03 Heparin SC 5,000 units Q12 ERASMO Administration Protocol Doxycycline Hyclate 100 mg/ 100 mls @ 100 mls/hr 01/24/17 23:30 01/25/17 10: 03 Sodium Chloride IVPB 100 mls/hr Q12 ERASMO Administration Protocol Meropenem 1g/NS 100mL IVPB 1 gm in 100 mls @ 100 mls/hr 01/24/17 23:30 00:07 Meropenem 1g/Ns 100ml Ivpb IVPB 01/31/17 23:31 100 mls/hr Q12 ERASMO Administration Protocol Sodium Chloride 1,000 mls @ 125 mls/hr 01/25/17 12:30 01/25/17 13:36 Sodium Chloride 0.9% IV 125 mls/hr .Q8H ERASMO Administration Calcium Gluconate 1,000 mg/ 110 mls @ 110 mls/hr 01/25/17 14:18 Sodium Chloride IVPB 01/25/17 15:17 ONCE ONE Insulin Human Regular 0 units 01/24/17 22:00 01/25/17 12:19 Humulin R Low SC Not Given ACHS ERASMO Protocol Pantoprazole Sodium 40 mg 01/25/17 10:00 01/25/17 10:03 Protonix Inj IVP 40 mg DAILY ERASMO Administration - Patient Studies Lab Studies: Microbiology Studies 01/24/17 19:00 Wound Culture - Preliminary Ankle - Left NO GROWTH AFTER 24 HOURS Lab Studies 01/25/17 01/25/17 01/25/17 Range/Units 13:45 09:35 09:35 pCO2 39 (35-45) mm/Hg pO2 129.0 H (80-100) mm/Hg HCO3 21.0 (21-28) mmol/L ABG pH 7.34 L (7.35-7.45) ABG Total CO2 22.2 (22-28) mmol.L ABG O2 Saturation 99.7 H (95-98) % ABG O2 Content (15-23) ML/dl ABG Base Excess -4.4 L (-2.0-3.0) mmol/L ABG Hemoglobin (11.7-17.4) g/dL ABG Carboxyhemoglobin (0.5-1.5) % POC ABG HHb (Measured) (0-5) % ABG Methemoglobin (0.0-3.0) % ABG O2 Capacity (16-24) mL/dl ABG Potassium 3.6 (3.6-5.2) mmol/L Hgb O2 Saturation (95.0-98.0) % Sodium 143.0 143 (132-148) mmol/L Chloride 119.0 H 112 H (98-107) mmol/L Glucose 103 (75-110) mg/dl Lactate 0.7 (0.7-2.1) mmol/L FiO2 60.0 % Potassium 3.7 (3.6-5.0) mmol/L Carbon Dioxide 20 L (21-33) mmol/L Anion Gap 15 (10-20) BUN 23 H (7-21) mg/dL Creatinine 2.4 H (0.5-1.4) mg/dL Est GFR ( Amer) 36 Est GFR (Non-Af Amer) 30 POC Glucose (mg/dL) (65-110) mg/dL Random Glucose 95 (70-110) mg/dL Calcium 6.3 L* (8.4-10.5) mg/dL Phosphorus 3.3 (2.5-4.5) mg/dL Magnesium 1.5 L (1.7-2.2) mg/dL Total Bilirubin 0.5 (0.2-1.3) mg/dL AST 22 (15-59) U/L ALT 39 (7-56) U/L Alkaline Phosphatase 36 L (38-133) U/L Lactate Dehydrogenase 546 (333-699) U/L Total Creatine Kinase 68 (35-230) U/L Troponin I 0.19 H* D ng/mL Total Protein 5.3 L (5.8-8.3) g/dL Albumin 2.6 L (3.0-4.8) g/dL Globulin 2.7 gm/dL Albumin/Globulin Ratio 1.0 L (1.1-1.8) Triglycerides 178 H (35-160) mg/dL Cholesterol 54 L (130-200) mg/dL LDL Cholesterol Direct < 30 (0-129) mg/dL HDL Cholesterol 20 L (29-60) mg/dL Arterial Blood Potassium 3.6 (3.6-5.2) mmol/L Ur Random Creatinine mg/dL Ur Random Sodium meq/L Ur Random Potassium meq/L Urine Opiates Screen Negative (NEGATIVE) Urine Methadone Screen Negative (NEGATIVE) Ur Barbiturates Screen Negative (NEGATIVE) Ur Phencyclidine Scrn Negative (NEGATIVE) Ur Amphetamines Screen Negative (NEGATIVE) U Benzodiazepines Scrn Negative (NEGATIVE) U Oth Cocaine Metabols Negative (NEGATIVE) U Cannabinoids Screen Negative (NEGATIVE) Alcohol, Quantitative (0-10) mg/dL Influenza Typ A,B (EIA) (NEGATIVE) Ur L.pneumophila Ag (NEGATIVE) 01/24/17 01/24/17 01/24/17 Range/Units 23:40 21:58 19:32 pCO2 47 H (35-45) mm/Hg pO2 81.0 (80-100) mm/Hg HCO3 18.8 L (21-28) mmol/L ABG pH 7.21 L (7.35-7.45) ABG Total CO2 20.2 L (22-28) mmol.L ABG O2 Saturation 98.0 (95-98) % ABG O2 Content (15-23) ML/dl ABG Base Excess -9.0 L (-2.0-3.0) mmol/L ABG Hemoglobin (11.7-17.4) g/dL ABG Carboxyhemoglobin (0.5-1.5) % POC ABG HHb (Measured) (0-5) % ABG Methemoglobin (0.0-3.0) % ABG O2 Capacity (16-24) mL/dl ABG Potassium 3.1 L (3.6-5.2) mmol/L Hgb O2 Saturation (95.0-98.0) % Sodium 144.0 (132-148) mmol/L Chloride 119.0 H (98-107) mmol/L Glucose 97 (75-110) mg/dl Lactate 1.0 (0.7-2.1) mmol/L FiO2 60.0 % Potassium (3.6-5.0) mmol/L Carbon Dioxide (21-33) mmol/L Anion Gap (10-20) BUN (7-21) mg/dL Creatinine (0.5-1.4) mg/dL Est GFR ( Amer) Est GFR (Non-Af Amer) POC Glucose (mg/dL) 98 (65-110) mg/dL Random Glucose (70-110) mg/dL Calcium (8.4-10.5) mg/dL Phosphorus (2.5-4.5) mg/dL Magnesium (1.7-2.2) mg/dL Total Bilirubin (0.2-1.3) mg/dL AST (15-59) U/L ALT (7-56) U/L Alkaline Phosphatase (38-133) U/L Lactate Dehydrogenase (333-699) U/L Total Creatine Kinase (35-230) U/L Troponin I 0.49 H* D ng/mL Total Protein (5.8-8.3) g/dL Albumin (3.0-4.8) g/dL Globulin gm/dL Albumin/Globulin Ratio (1.1-1.8) Triglycerides (35-160) mg/dL Cholesterol (130-200) mg/dL LDL Cholesterol Direct (0-129) mg/dL HDL Cholesterol (29-60) mg/dL Arterial Blood Potassium 3.1 L (3.6-5.2) mmol/L Ur Random Creatinine mg/dL Ur Random Sodium meq/L Ur Random Potassium meq/L Urine Opiates Screen (NEGATIVE) Urine Methadone Screen (NEGATIVE) Ur Barbiturates Screen (NEGATIVE) Ur Phencyclidine Scrn (NEGATIVE) Ur Amphetamines Screen (NEGATIVE) U Benzodiazepines Scrn (NEGATIVE) U Oth Cocaine Metabols (NEGATIVE) U Cannabinoids Screen (NEGATIVE) Alcohol, Quantitative (0-10) mg/dL Influenza Typ A,B (EIA) (NEGATIVE) Ur L.pneumophila Ag (NEGATIVE) 01/24/17 01/24/17 01/24/17 Range/Units 16:51 16:51 16:51 pCO2 (35-45) mm/Hg pO2 (80-100) mm/Hg HCO3 (21-28) mmol/L ABG pH (7.35-7.45) ABG Total CO2 (22-28) mmol.L ABG O2 Saturation (95-98) % ABG O2 Content (15-23) ML/dl ABG Base Excess (-2.0-3.0) mmol/L ABG Hemoglobin (11.7-17.4) g/dL ABG Carboxyhemoglobin (0.5-1.5) % POC ABG HHb (Measured) (0-5) % ABG Methemoglobin (0.0-3.0) % ABG O2 Capacity (16-24) mL/dl ABG Potassium (3.6-5.2) mmol/L Hgb O2 Saturation (95.0-98.0) % Sodium (132-148) mmol/L Chloride (98-107) mmol/L Glucose (75-110) mg/dl Lactate (0.7-2.1) mmol/L FiO2 % Potassium (3.6-5.0) mmol/L Carbon Dioxide (21-33) mmol/L Anion Gap (10-20) BUN (7-21) mg/dL Creatinine (0.5-1.4) mg/dL Est GFR ( Amer) Est GFR (Non-Af Amer) POC Glucose (mg/dL) (65-110) mg/dL Random Glucose (70-110) mg/dL Calcium (8.4-10.5) mg/dL Phosphorus (2.5-4.5) mg/dL Magnesium (1.7-2.2) mg/dL Total Bilirubin (0.2-1.3) mg/dL AST (15-59) U/L ALT (7-56) U/L Alkaline Phosphatase (38-133) U/L Lactate Dehydrogenase (333-699) U/L Total Creatine Kinase (35-230) U/L Troponin I ng/mL Total Protein (5.8-8.3) g/dL Albumin (3.0-4.8) g/dL Globulin gm/dL Albumin/Globulin Ratio (1.1-1.8) Triglycerides (35-160) mg/dL Cholesterol (130-200) mg/dL LDL Cholesterol Direct (0-129) mg/dL HDL Cholesterol (29-60) mg/dL Arterial Blood Potassium (3.6-5.2) mmol/L Ur Random Creatinine 806 mg/dL Ur Random Sodium 12 meq/L Ur Random Potassium 22.3 meq/L Urine Opiates Screen (NEGATIVE) Urine Methadone Screen (NEGATIVE) Ur Barbiturates Screen (NEGATIVE) Ur Phencyclidine Scrn (NEGATIVE) Ur Amphetamines Screen (NEGATIVE) U Benzodiazepines Scrn (NEGATIVE) U Oth Cocaine Metabols (NEGATIVE) U Cannabinoids Screen (NEGATIVE) Alcohol, Quantitative (0-10) mg/dL Influenza Typ A,B (EIA) Negative for flu a/b (NEGATIVE) Ur L.pneumophila Ag Negative (NEGATIVE) 01/24/17 01/24/17 Range/Units 16:15 16:00 pCO2 55 H (35-45) mm/Hg pO2 55.0 L (80-100) mm/Hg HCO3 23.6 (21-28) mmol/L ABG pH 7.24 L (7.35-7.45) ABG Total CO2 25.3 (22-28) mmol.L ABG O2 Saturation 88.6 L (95-98) % ABG O2 Content 12.9 L (15-23) ML/dl ABG Base Excess -4.1 L (-2.0-3.0) mmol/L ABG Hemoglobin 10.6 L (11.7-17.4) g/dL ABG Carboxyhemoglobin 2.0 H (0.5-1.5) % POC ABG HHb (Measured) 11.1 H (0-5) % ABG Methemoglobin 0.5 (0.0-3.0) % ABG O2 Capacity 14.6 L (16-24) mL/dl ABG Potassium (3.6-5.2) mmol/L Hgb O2 Saturation 86.4 L (95.0-98.0) % Sodium (132-148) mmol/L Chloride (98-107) mmol/L Glucose (75-110) mg/dl Lactate (0.7-2.1) mmol/L FiO2 35.0 % Potassium (3.6-5.0) mmol/L Carbon Dioxide (21-33) mmol/L Anion Gap (10-20) BUN (7-21) mg/dL Creatinine (0.5-1.4) mg/dL Est GFR ( Amer) Est GFR (Non-Af Amer) POC Glucose (mg/dL) (65-110) mg/dL Random Glucose (70-110) mg/dL Calcium (8.4-10.5) mg/dL Phosphorus (2.5-4.5) mg/dL Magnesium (1.7-2.2) mg/dL Total Bilirubin (0.2-1.3) mg/dL AST (15-59) U/L ALT (7-56) U/L Alkaline Phosphatase (38-133) U/L Lactate Dehydrogenase (333-699) U/L Total Creatine Kinase (35-230) U/L Troponin I ng/mL Total Protein (5.8-8.3) g/dL Albumin (3.0-4.8) g/dL Globulin gm/dL Albumin/Globulin Ratio (1.1-1.8) Triglycerides (35-160) mg/dL Cholesterol (130-200) mg/dL LDL Cholesterol Direct (0-129) mg/dL HDL Cholesterol (29-60) mg/dL Arterial Blood Potassium (3.6-5.2) mmol/L Ur Random Creatinine mg/dL Ur Random Sodium meq/L Ur Random Potassium meq/L Urine Opiates Screen (NEGATIVE) Urine Methadone Screen (NEGATIVE) Ur Barbiturates Screen (NEGATIVE) Ur Phencyclidine Scrn (NEGATIVE) Ur Amphetamines Screen (NEGATIVE) U Benzodiazepines Scrn (NEGATIVE) U Oth Cocaine Metabols (NEGATIVE) U Cannabinoids Screen (NEGATIVE) Alcohol, Quantitative < 10 (0-10) mg/dL Influenza Typ A,B (EIA) (NEGATIVE) Ur L.pneumophila Ag (NEGATIVE) Laboratory Results - last 24 hr 01/24/17 01/24/17 01/24/17 16:00 16:15 16:51 pCO2 55 H pO2 55.0 L HCO3 23.6 ABG pH 7.24 L ABG Total CO2 25.3 ABG O2 Saturation 88.6 L ABG O2 Content 12.9 L ABG Base Excess -4.1 L ABG Hemoglobin 10.6 L ABG Carboxyhemoglobin 2.0 H POC ABG HHb (Measured) 11.1 H ABG Methemoglobin 0.5 ABG O2 Capacity 14.6 L ABG Potassium Hgb O2 Saturation 86.4 L Sodium Chloride Glucose Lactate FiO2 35.0 Potassium Carbon Dioxide Anion Gap BUN Creatinine Est GFR ( Amer) Est GFR (Non-Af Amer) POC Glucose (mg/dL) Random Glucose Calcium Phosphorus Magnesium Total Bilirubin AST ALT Alkaline Phosphatase Lactate Dehydrogenase Total Creatine Kinase Troponin I Total Protein Albumin Globulin Albumin/Globulin Ratio Triglycerides Cholesterol LDL Cholesterol Direct HDL Cholesterol Arterial Blood Potassium Ur Random Creatinine Ur Random Sodium Ur Random Potassium Urine Opiates Screen Urine Methadone Screen Ur Barbiturates Screen Ur Phencyclidine Scrn Ur Amphetamines Screen U Benzodiazepines Scrn U Oth Cocaine Metabols U Cannabinoids Screen Alcohol, Quantitative < 10 Influenza Typ A,B (EIA) Ur L.pneumophila Ag Negative 01/24/17 01/24/17 01/24/17 16:51 16:51 19:32 pCO2 pO2 HCO3 ABG pH ABG Total CO2 ABG O2 Saturation ABG O2 Content ABG Base Excess ABG Hemoglobin ABG Carboxyhemoglobin POC ABG HHb (Measured) ABG Methemoglobin ABG O2 Capacity ABG Potassium Hgb O2 Saturation Sodium Chloride Glucose Lactate FiO2 Potassium Carbon Dioxide Anion Gap BUN Creatinine Est GFR ( Amer) Est GFR (Non-Af Amer) POC Glucose (mg/dL) Random Glucose Calcium Phosphorus Magnesium Total Bilirubin AST ALT Alkaline Phosphatase Lactate Dehydrogenase Total Creatine Kinase Troponin I 0.49 H* D Total Protein Albumin Globulin Albumin/Globulin Ratio Triglycerides Cholesterol LDL Cholesterol Direct HDL Cholesterol Arterial Blood Potassium Ur Random Creatinine 806 Ur Random Sodium 12 Ur Random Potassium 22.3 Urine Opiates Screen Urine Methadone Screen Ur Barbiturates Screen Ur Phencyclidine Scrn Ur Amphetamines Screen U Benzodiazepines Scrn U Oth Cocaine Metabols U Cannabinoids Screen Alcohol, Quantitative Influenza Typ A,B (EIA) Negative for flu a/b Ur L.pneumophila Ag 01/24/17 01/24/17 01/25/17 21:58 23:40 09:35 pCO2 47 H pO2 81.0 HCO3 18.8 L ABG pH 7.21 L ABG Total CO2 20.2 L ABG O2 Saturation 98.0 ABG O2 Content ABG Base Excess -9.0 L ABG Hemoglobin ABG Carboxyhemoglobin POC ABG HHb (Measured) ABG Methemoglobin ABG O2 Capacity ABG Potassium 3.1 L Hgb O2 Saturation Sodium 144.0 143 Chloride 119.0 H 112 H Glucose 97 Lactate 1.0 FiO2 60.0 Potassium 3.7 Carbon Dioxide 20 L Anion Gap 15 BUN 23 H Creatinine 2.4 H Est GFR ( Amer) 36 Est GFR (Non-Af Amer) 30 POC Glucose (mg/dL) 98 Random Glucose 95 Calcium 6.3 L* Phosphorus 3.3 Magnesium 1.5 L Total Bilirubin 0.5 AST 22 ALT 39 Alkaline Phosphatase 36 L Lactate Dehydrogenase 546 Total Creatine Kinase 68 Troponin I 0.19 H* D Total Protein 5.3 L Albumin 2.6 L Globulin 2.7 Albumin/Globulin Ratio 1.0 L Triglycerides 178 H Cholesterol 54 L LDL Cholesterol Direct < 30 HDL Cholesterol 20 L Arterial Blood Potassium 3.1 L Ur Random Creatinine Ur Random Sodium Ur Random Potassium Urine Opiates Screen Urine Methadone Screen Ur Barbiturates Screen Ur Phencyclidine Scrn Ur Amphetamines Screen U Benzodiazepines Scrn U Oth Cocaine Metabols U Cannabinoids Screen Alcohol, Quantitative Influenza Typ A,B (EIA) Ur L.pneumophila Ag 01/25/17 01/25/17 09:35 13:45 pCO2 39 pO2 129.0 H HCO3 21.0 ABG pH 7.34 L ABG Total CO2 22.2 ABG O2 Saturation 99.7 H ABG O2 Content ABG Base Excess -4.4 L ABG Hemoglobin ABG Carboxyhemoglobin POC ABG HHb (Measured) ABG Methemoglobin ABG O2 Capacity ABG Potassium 3.6 Hgb O2 Saturation Sodium 143.0 Chloride 119.0 H Glucose 103 Lactate 0.7 FiO2 60.0 Potassium Carbon Dioxide Anion Gap BUN Creatinine Est GFR ( Amer) Est GFR (Non-Af Amer) POC Glucose (mg/dL) Random Glucose Calcium Phosphorus Magnesium Total Bilirubin AST ALT Alkaline Phosphatase Lactate Dehydrogenase Total Creatine Kinase Troponin I Total Protein Albumin Globulin Albumin/Globulin Ratio Triglycerides Cholesterol LDL Cholesterol Direct HDL Cholesterol Arterial Blood Potassium 3.6 Ur Random Creatinine Ur Random Sodium Ur Random Potassium Urine Opiates Screen Negative Urine Methadone Screen Negative Ur Barbiturates Screen Negative Ur Phencyclidine Scrn Negative Ur Amphetamines Screen Negative U Benzodiazepines Scrn Negative U Oth Cocaine Metabols Negative U Cannabinoids Screen Negative Alcohol, Quantitative Influenza Typ A,B (EIA) Ur L.pneumophila Ag Critical Care Progress Note - Nutrition Nutrition: Nutrition Category Date Time Status Dysphagia/Modified Consistency Diet [DIET] Diets 01/25/17 Lunch Ordered Attending/Attestation - Attestation I have personally seen and examined this patient.: Yes I have fully participated in the care of the patient.: Yes I have reviewed all pertinent clinical information: Yes Notes (Text): 01/25/17 14:41 42 y/o M w/ Sepsis On Meropenum and DOxyw/ ID following Need records from [facility] [place] be followed. Overnight used BIPAP and currently more awake and following commands Unclear Baseline at adult day care. CKD? continues to make urine, unclear if this is ERICA, NSAIDS? urine electrolytes sent. Nephrology consulted. dvt p heparin sq tid cc time 55 min
[2017-01-25] MEDS ORDERED: Lidocaine 2% Inj (20ml) ONE (13:51)
--- NOTE | 2017-01-25 15:16 | CT ---
PROCEDURE: CT Abdomen and Pelvis without intravenous contrast HISTORY: wbc 19k COMPARISON: Chest CT 01/24/2017 TECHNIQUE: Technique. Contrast Dose: Radiation dose: Total exam DLP = 1359 mGy-cm. This CT exam was performed using one or more of the following dose reduction techniques: Automated exposure control, adjustment of the mA and/or kV according to patient size, and/or use of iterative reconstruction technique. FINDINGS: LOWER THORAX: Linear infiltrates at the lung bases similar [address] LIVER: Fatty infiltration of the liver GALLBLADDER AND BILE DUCTS: Unremarkable. PANCREAS: Unremarkable. No gross lesion or ductal dilatation. SPLEEN: Unremarkable. ADRENALS: Unremarkable. No mass. KIDNEYS AND URETERS: Unremarkable. No hydronephrosis. No solid mass. VASCULATURE: Unremarkable. No aortic aneurysm. BOWEL: Unremarkable. No obstruction. No gross mural thickening. APPENDIX: Unremarkable. Normal appendix. PERITONEUM: Unremarkable. No free fluid. No free air. LYMPH NODES: Unremarkable. No enlarged lymph nodes. BLADDER: Unremarkable. REPRODUCTIVE: Unremarkable. BONES: No acute fracture. OTHER FINDINGS: None. IMPRESSION: No acute intra-abdominal findings
--- NOTE | 2017-01-25 16:22 | VASCULAR ---
PROCEDURE: Ultrasound and fluoroscopically placed left upper extremity PICC line. HISTORY: Pneumonia. Osteomyelitis. Long-term IV antibiotics. Needs PICC line PHYSICIAN(S): Ronald De León MD. TECHNIQUE: The relative risks and indications of the procedure were explained to the patient and consent obtained. The patient was placed supine on the arteriogram table and the left arm prepped and draped in the usual sterile fashion. A tourniquet was applied to the left axilla. 1% Xylocaine was used to anesthetize the skin and soft tissues at the puncture site above the elbow. The left brachial vein was punctured under direct ultrasound guidance with a micropuncture set. A 0.018 guidewire was advanced centrally and used to measure the length to the SVC/RA junction. A 5 [place] single-lumen PICC line 55 cm long was advanced to the SVC/RA junction. The catheter was flushed and secured. The patient tolerated the procedure well. IMPRESSION: 1. Ultrasound and fluoroscopically placed left upper extremity PICC line. A 5 [place] single-lumen PICC line 55 cm long was advanced to the SVC/RA junction.
--- NOTE | 2017-01-25 18:55 | US ---
PROCEDURE: Ultrasound of the Kidneys HISTORY: acute renal failure, r/o hydronephrosis COMPARISON: January 24, 2017. CT abdomen and pelvis.. TECHNIQUE: Sonogram of the kidneys. FINDINGS: RIGHT KIDNEY: Measures: 13.1 x 5.1 cm. Normal in size, contour and echogenicity. No stone, solid mass lesion or hydronephrosis visualized. LEFT KIDNEY: Measures: 6.1 x 12.2 cm. Normal in size, contour and echogenicity. Echogenic focus mid pole region 8 8 mm likely nonobstructing calculus. OTHER FINDINGS: None. IMPRESSION: Nonobstructing left renal calculus. Otherwise unremarkable study. Please note the CT scan failed to identified the small nonobstructing calculus.
[2017-01-26 06:10] LABS: ADD MANUAL DIFF? NO
[2017-01-26 06:16] LABS: BASO # 0.02 K/mm3 (0.0-2.0); BASO % 0.1 % (0.0-3.0); EOS # 0.2 (0.0-0.7); EOS % 1.1 % (1.5-5.0); GRAN # 13.38 (1.4-6.5); GRAN % 86.9 % (50.0-68.0); HEMATOCRIT 30.9 % (42.0-52.0); LYMPH # 1.1 (1.2-3.4); LYMPH % 7.3 % (22.0-35.0); MEAN CELL VOLUME 77.8 fL (80.0-105.0); MEAN CORPUSCULAR HEMOGLOBIN 24.9 pg (25.0-35.0); MEAN PLATELET VOLUME 8.6 fl (7.0-11.0); MONO # 0.7 (0.1-0.6); MONO % 4.6 % (1.0-6.0); PLATELET COUNT 357 10^3/uL (120.0-450.0); RED CELL DISTRIBUTION WIDTH 17.8 % (11.5-14.5); WHITE BLOOD COUNT 15.4 10^3/ul (4.5-11.0)
[2017-01-26 06:29] LABS: INR 1.02 (0.93-1.08)
[2017-01-26 06:46] LABS: ALKALINE PHOSPHATASE 62 U/L (38-133); ALT/SGPT 38 U/L (7-56); AST/SGOT 34 U/L (15-59); BILIRUBIN,TOTAL 0.7 mg/dL (0.2-1.3); BLOOD UREA NITROGEN 16 mg/dL (7-21); CARBON DIOXIDE 24 mmol/L (21-33); CHLORIDE 105 mmol/L (98-107); GFR AFRICAN-AMERICAN > 60; GLUCOSE,RANDOM 142 mg/dL (70-110); SODIUM 142 mmol/L (132-148); TOTAL PROTEIN 6.7 g/dL (5.8-8.3)
[2017-01-26 07:17] LABS: TROPONIN I 0.23 ng/mL
[2017-01-26] MEDS ORDERED: Pantoprazole 40 mg Susp UD PO SCH (07:30)
[2017-01-26] MEDS: Insulin Reg-LOW-Coverage SC SCH ×4 (07:35→22:00)
[2017-01-26] MEDS ORDERED: Potassium Chloride 40 mEq/30 ml LIQ UD PO ONE ×2 (07:47→07:48)
[2017-01-26] MEDS: Pantoprazole 40 mg EC Tab PO SCH (07:48)
--- NOTE | 2017-01-26 09:31 | PN ---
DATE: 01/26/2017 REASON FOR CONSULTATION AND FOLLOWUP: Positive troponin, acute kidney injury, morbid obesity, altere d mental status, lethargic, improving. BRIEF CLINICAL HISTORY: A 42-year-old morbidly obese male who is mentally slow, past medical history significant for diabetes, hypertension, hyperlipidemia, as mentioned mentally slow, chronic kidney d isease, history of dialysis in 1999 according to the patient, was in [facility], then patient is off dialysis and was told the kidney function is okay. Admitted here from the daycare because of fe eling very weak, lethargic, altered mental status with elevated BUN and creatinine to 4. Now, creati nine is trending down. Denies any chest pain, shortness of breath, any palpitation. The patient is still in ICU 129, bed 3. Denies any chest pain, shortness of breath, any palpitation. Incidental fi nding, troponin was positive 0.19 in the face of creatinine 4. PHYSICAL EXAMINATION: VITAL SIGNS: Temperature afebrile, heart rate 100, blood pressure 168/79. HEENT: PERRLA. Extraocular muscles intact. NECK: Supple. No carotid bruits. No thyromegaly. CHEST: Clear to auscultation. HEART: S1, S2 regular. ABDOMEN: Soft. EXTREMITIES: Clubbing, cyanosis negative. BLOOD WORKUP: WBC 15.4, hemoglobin 9.9, hematocrit 30.9, platelet count 357. Chemistry shows sodium 142, potassium 3, chloride 105, carbon dioxide 24, anion gap of 16, BUN 16, creatinine 1.1. Troponi n 0.23, and today creatinine is 1.1. IMPRESSION: Resolved acute kidney injury, borderline troponin positive, could be secondary to underl buddy coronary artery disease, [id number] elevation myocardial infarction versus acute kidney inju ry and spill of the troponin, hypokalemia, morbid obesity, diabetes, hypertension, hyperlipidemia, me ntally slow, history of dialysis in 1999 for a while for acute kidney injury. 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 Probably, that trig gered the kidney function worse. RECOMMENDATION: Supplement potassium. Will put hydralazine p.r.n. for blood pressure in addition to Dr. Bills's medication started for antihypertensive medication. We will also start amlodipine as t he patient was on amlodipine before and put p.r.n. hydralazine. Supplement potassium. Once the gloria ent is stable, consider a stress test in a day or two before the patient goes home. We will try to a void catheterization because of recent kidney injury, making worse and the patient may end up in dial ysis. We will follow with you. Thank you, Dr. Makayla Mendoza, for providing us the opportunity in taking care of the patient. Awaiting for echo to be completed. We will follow with you. Garcia Pack MD cc: [id number] TT: 01/26/2017 09:30:15 Confirmation # [id number] Dictation # [id number]
[2017-01-26] MEDS: Non Formulary Medication (Nebivolol [Bystolic] 10 MG) PO SCH (10:00)
[2017-01-26] MEDS ORDERED: Non Formulary Medication (Nebivolol [Bystolic] 10 MG) PO SCH (10:00)
[2017-01-26] MEDS ORDERED: Non Formulary Medication (Losartan/Hydrochlorothiazide [Losartan-Hctz 100-25 Mg Tab] 1 EAC PO SCH (10:00)
--- NOTE | 2017-01-26 10:40 | PN ---
DATE: 01/26/2017 SUBJECTIVE: The patient seen earlier today in CCU 129, bed 3. He is awake. He had uneventful night . He had no fevers. PHYSICAL EXAMINATION: VITAL SIGNS: Temperature is 97, blood pressure is 168/70, respiratory rate of 16. HEENT: Unremarkable. NECK: Supple. LUNGS: Have decreased breath sounds. HEART: Normal S1, S2. ABDOMEN: Soft, nontender. LABORATORY DATA: Reveals the white count is down to 15,400, hemoglobin of 9, platelets of 357. The chemistries reveal a BUN of 16. Creatinine is also improved at 1.1. The patient's procalcitonin is 0.66 from 01/24/2017. REVIEW OF ORDERS: Reveals the patient to be on doxycycline and meropenem. REVIEW OF MICROBIOLOGY: Reveals the blood cultures are no growth. Urine culture is pending. The le ft ankle culture is no growth. ASSESSMENT AND PLAN: This is a 42-year-old male with morbid obesity with a body mass index of 45, di abetes mellitus, hypertension, gout, history of lower extremity edema and recent hospitalization in [facility], admitted with severe sepsis with healthcare-associated pneumonia, possible gram-positive cocci versus gram-negative linda, with acute kidney injury. On meropenem and doxycyclin e. Culture is negative. Will change the doxycycline to p.o. and check on the final cultures. The p atient's white count is improved from 19,600 to 15,400. The patient's creatinine also is improved fr om 2.4 to 1.1. Overall he is much improved. Urinalysis is negative. Blood cultures are negative. Will follow the WBC and final culture results. The patient did have a CAT scan of the abdomen which revealed no acute intraabdominal findings. There are linear infiltrates at the lung bases. Day #3 of meropenem and doxycycline. Will change the doxycycline to p.o. Demarco Portillo MD cc: [id number] TT: 01/26/2017 10:39:26 Confirmation # [id number] Dictation # [id number] mn
[2017-01-26] MEDS: Sodium Chloride 0.9% 1,000 ML IV SCH (10:45)
--- NOTE | 2017-01-26 10:56 | CP.PCM.PN ---
<ChikaNancy - Last Filed: 01/26/17 10:52> Subjective - Date & Time of Evaluation Date of Evaluation: 01/26/17 Time of Evaluation: 10:52 - Subjective Subjective: Hospitalist Progress Note Patient seen and examined at bedside. Overnight patient refused his Bipap. He reports he "cannot breath" with it. He denies feeling SOB, CP, n/v/d, pain, chills, dysuria or hematuria. As per nursing, patient was given a Tylenol for headache, later on his temp was noticed to be 99.5 after the tylenol. Previous records from [facility] were obtained but were from August 2014. It is noted that patient has PMH of CHF. Objective - Vital Signs/Intake and Output Vital Signs (last 24 hours): Temp Pulse Resp BP Pulse Ox 97.2 F L 100 H 28 H 158/92 H 99 01/26/17 07:26 01/26/17 07:20 01/26/17 07:20 01/26/17 10:31 01/26/17 07:20 Intake and Output: 01/26/17 01/26/17 06:59 18:59 Intake Total 1000 Balance 1000 - Medications Medications: Current Medications Acetaminophen (Tylenol 325mg Tab) 650 mg PO Q6H PRN PRN Reason: Pain Last Admin: 01/25/17 16:08 Dose: 650 mg Albuterol/Ipratropium (Duoneb 3 Mg/0.5 Mg (3 Ml) Ud) 3 ml IH Q2H PRN PRN Reason: Shortness of Breath Amlodipine Besylate (Norvasc) 10 mg PO DAILY [facility] Last Admin: 01/26/17 10:31 Dose: 10 mg Atorvastatin Calcium (Lipitor) 10 mg PO 1700 ERASMO Last Admin: 01/25/17 17:27 Dose: 10 mg Doxycycline Hyclate (Doryx) 100 mg PO Q12 ERASMO PRN Reason: Protocol Stop: 02/05/17 22:01 Gabapentin (Neurontin) 300 mg PO BID REASMO PRN Reason: Protocol Last Admin: 01/26/17 10:31 Dose: 300 mg Guaifenesin/Dextromethorphan (Robitussin Dm) 5 ml PO Q4H PRN PRN Reason: Cough and congestion Heparin Sodium (Porcine) (Heparin) 5,000 units SC Q12 ERASMO PRN Reason: Protocol Last Admin: 01/26/17 10:29 Dose: 5,000 units Hydralazine HCl (Apresoline) 10 mg PO QID PRN PRN Reason: For SBP>170 & diastolic>100 Meropenem 1g/NS 100mL IVPB (Meropenem 1g/Ns 100ml Ivpb) 1 gm in 100 mls @ 100 mls/hr IVPB Q12 ERASMO PRN Reason: Protocol Stop: 01/31/17 23:31 Last Admin: 01/25/17 21:35 Dose: 100 mls/hr Sodium Chloride (Sodium Chloride 0.9%) 1,000 mls @ 125 mls/hr IV .Q8H [facility] Last Admin: 01/26/17 10:45 Dose: 125 mls/hr Insulin Human Regular (Humulin R Low) 0 units SC ACHS ERASMO PRN Reason: Protocol Last Admin: 01/26/17 07:35 Dose: Not Given Non-Formulary Medication (Nebivolol [Bystolic]) 10 mg PO DAILY [facility] Pantoprazole Sodium (Protonix Ec Tab) 40 mg PO ACB [facility] Last Admin: 01/26/17 07:48 Dose: 40 mg - Labs Labs: 01/26/17 05:30 01/26/17 05:30 PT 11.0 Seconds (9.9-11.8) 01/26/17 05:30 INR 1.02 (0.93-1.08) 01/26/17 05:30 APTT 26.4 Seconds (23.7-30.8) 01/24/17 13:43 - Constitutional Appears: No Acute Distress - Head Exam Head Exam: ATRAUMATIC, NORMAL INSPECTION, NORMOCEPHALIC - Eye Exam Eye Exam: Normal appearance Pupil Exam: NORMAL ACCOMODATION - ENT Exam ENT Exam: Mucous Membranes Moist - Neck Exam Neck Exam: Full ROM, Normal Inspection - Respiratory Exam Respiratory Exam: Rhonchi, NORMAL BREATHING PATTERN. absent: Rales, Wheezes, Respiratory Distress - Cardiovascular Exam Cardiovascular Exam: REGULAR RHYTHM, +S1, +S2. absent: Gallop, Rubs, Murmur - GI/Abdominal Exam GI & Abdominal Exam: Soft, Normal Bowel Sounds. absent: Rigid, Tenderness, Mass , Rebound - Extremities Exam Extremities Exam: Pedal Edema. absent: Calf Tenderness Additional comments: L ankle sore - Neurological Exam Neurological Exam: CN II-XII Intact, Oriented x3 - Psychiatric Exam Psychiatric exam: Normal Affect, Normal Mood - Skin Skin Exam: Dry, Normal Color, Warm Assessment and Plan - Assessment and Plan (Free Text) Assessment: This is a 42Y M PMH HTN, HLD, DM, gout, CHF admitted for sepsis, AMS, ERICA, and elevated troponin. Plan: 1. Sepsis - Bilateral Upper lobe Pneumonia seen on chest CT - Low grade fever yesterday, leukocytosis trending down - Doxycycline changed to PO, Continue Merrem, robutissin prn cough - Duoneb prn SOB - CT abd/pelvis was unremarkable for intrabdominal abnormalities - ID Consulted - Wound culture and blood culture negative, Urine culture pending - Leigionella negative 2. ERICA- resolved - Cr: 1.1- last known Cr at [facility] was 1.0 in 2013 - Nephro consulted - Renal ultrasound showed nonobstructing L renal calculus - Will continue to monitor electrolytes and replace as needed - Avoid NSAID use 3. Elevated troponin - Troponin increased from 0.19 to 0.23 - Repeat EKG showed sinus tach, QTC 466 (which was known to be prolonged on previous EKG) - Cardiology consulted - recommended stress test 1-2 days before d/c - Echo- final read pending (known hx of CHF, but unknown EF) - TSH normal, Cholesterol panel showed mildly elevated triglycerides and low HDL - HgbA1c pending 4. HTN - Norvasc and Bystolic restarted - Hydralazine prn - Stop IV fluids- patient now eating and hypertensive - As per Nephro, can restart Losartan/HCTZ as outpatient 5. DM - HgbA1c pending - Continue ISS and blood glucose monitoring - Continue neurontin for neuropathy - Podiatry consulted for diabetic wound on both extremities 6. HLD - Continue Lipitor 7. Hx of gout - Continue to hold allopurinol GI ppx: Protonix DVT ppx: Heparin Case seen, reviewed and discussed with attending Jenny Farr PGY1 <Makayla Mendoza - Last Filed: 01/27/17 14:01> Objective - Vital Signs/Intake and Output Vital Signs (last 24 hours): Temp Pulse Resp BP Pulse Ox 98.0 F 95 H 20 145/91 H 100 01/27/17 06:00 01/27/17 06:00 01/27/17 06:00 01/27/17 09:22 01/27/17 06:00 Intake and Output: 01/27/17 01/27/17 06:59 18:59 Intake Total 420 180 Output Total 500 Balance -80 180 - Medications Medications: Current Medications Acetaminophen (Tylenol 325mg Tab) 650 mg PO Q6H PRN PRN Reason: Pain Last Admin: 01/25/17 16:08 Dose: 650 mg Albuterol/Ipratropium (Duoneb 3 Mg/0.5 Mg (3 Ml) Ud) 3 ml IH Q2H PRN PRN Reason: Shortness of Breath Amlodipine Besylate (Norvasc) 10 mg PO DAILY [facility] Last Admin: 01/27/17 09:22 Dose: 10 mg Atorvastatin Calcium (Lipitor) 10 mg PO 1700 [facility] Last Admin: 01/26/17 17:27 Dose: 10 mg Doxycycline Hyclate (Doryx) 100 mg PO Q12 ERASMO PRN Reason: Protocol Stop: 02/05/17 22:01 Last Admin: 01/27/17 09:22 Dose: 100 mg Ferrous Sulfate (Feosol) 324 mg PO BID [facility] Gabapentin (Neurontin) 300 mg PO BID ERASMO PRN Reason: Protocol Last Admin: 01/27/17 09:22 Dose: 300 mg Guaifenesin/Dextromethorphan (Robitussin Dm) 5 ml PO Q4H PRN PRN Reason: Cough and congestion Heparin Sodium (Porcine) (Heparin) 5,000 units SC Q12 ERASMO PRN Reason: Protocol Last Admin: 01/27/17 09:24 Dose: 5,000 units Hydralazine HCl (Apresoline) 10 mg PO QID PRN PRN Reason: For SBP>170 & diastolic>100 Last Admin: 01/27/17 05:31 Dose: 10 mg Meropenem 1g/NS 100mL IVPB (Meropenem 1g/Ns 100ml Ivpb) 1 gm in 100 mls @ 100 mls/hr IVPB Q12 ERASMO PRN Reason: Protocol Stop: 01/31/17 23:31 Last Admin: 01/27/17 09:23 Dose: 100 mls/hr Sodium Chloride (Sodium Chloride 0.45%) 1,000 mls @ 100 mls/hr IV .Q10H [facility] Last Admin: 01/27/17 04:42 Dose: 100 mls/hr Magnesium Sulfate/Dextrose (Magnesium Sulfate 1 Gm/100 Ml D5w) 1 gm in 100 mls @ 100 mls/hr IVPB Q2H [facility] Stop: 01/27/17 15:44 Last Admin: 01/27/17 13:19 Dose: 100 mls/hr Insulin Human Regular (Humulin R Low) 0 units SC ACHS ERASMO PRN Reason: Protocol Last Admin: 01/27/17 11:53 Dose: Not Given Losartan Potassium (Cozaar) 100 mg PO DAILY [facility] Last Admin: 01/27/17 10:05 Dose: 100 mg Non-Formulary Medication (Nebivolol [Bystolic]) 10 mg PO DAILY [facility] Last Admin: 01/27/17 09:24 Dose: Not Given Pantoprazole Sodium (Protonix Ec Tab) 40 mg PO ACB [facility] Last Admin: 01/27/17 08:14 Dose: 40 mg - Labs Labs: 01/27/17 07:51 01/27/17 07:51 PT 11.1 Seconds (9.9-11.8) 01/27/17 07:51 INR 1.03 (0.93-1.08) 01/27/17 07:51 APTT 26.4 Seconds (23.7-30.8) 01/24/17 13:43 Attending/Attestation - Attestation I have personally seen and examined this patient.: Yes I have fully participated in the care of the patient.: Yes I have reviewed all pertinent clinical information, including history, physical exam and plan: Yes Notes (Text): I have seen and examined patient with the resident. This is 42 year old male with history of HTN, dyslipidemia, DM-2, gout who was sent from day care for evaluation of dizziness and generalized weakness and found to have sepsis secondary to bilateral upper lobe pneumonia, acute kidney injury and elevated troponins. Continue meropenem and doxy as per ID. Cultures pending. Procal is 0.66. He is alert, awake and oriented x3. Creatinine back to baseline. FeNa suggestive of pre renal etiology. Troponin elevation is probably secondary to renal impairment. Financial Analyst on board. Echo pending. Hypotension resolved. Now he is hypertensive. Will restart norvasc and bystolic. Upon discharge patient will follow up with Dr Marlin Mendoza
--- NOTE | 2017-01-26 11:18 | CARD ---
APPROVED REPORT EKG Measurement Heart [id number] <Conclusion> Sinus tachycardia Otherwise normal ECG
[2017-01-26] MEDS: Meropenem 1g/NS 100mL IVPB 1 GM/100 ML PIGGYBACK IVPB SCH ×2 (11:53→22:12)
--- NOTE | 2017-01-26 12:30 | CP.PCM.CON ---
<Annita Flower - Last Filed: 01/26/17 12:27> History of Present Illness - History of Present Illness History of Present Illness: 42 yo M w/ pmh of htn, dm (diagnosed 2013), gout and hyperlipidemia, seen at bedside in CCU for left ankle nonhealing ulceration. Patient states that he sees a flower cheniller, Dr. Graham at [facility]. Patient denies any pain to his left lower extremity. He denies any acute events overnight. Patient was admitted for dizziness and vomiting. Patient denies n/f/c/sob. Review of Systems - Constitutional Constitutional: As Per HPI Past Patient History - Infectious Disease Hx of Infectious Diseases: None - Past Social History Smoking Status: Never Smoked - CARDIAC Hx Cardiac Disorders: Yes Hx Congestive Heart Failure: No Hx Hypercholesterolemia: No Hx Hypertension: Yes - PULMONARY Hx Chronic Obstructive Pulmonary Disease (COPD): No Hx Pneumonia: Yes - NEUROLOGICAL HX Cerebrovascular Accident: No - RENAL Hx Renal Failure: No - ENDOCRINE/METABOLIC Hx Diabetes Mellitus Type 1: No Hx Diabetes Mellitus Type 2: Yes Hx Hypothyroidism: No - HEMATOLOGICAL/ONCOLOGICAL Hx Cancer: No - INTEGUMENTARY Other/Comment: MRSA to bilat lower ext ulcers, 5cm x 3cm irregular ulcer to outer left ankle/footm dry feet thick toenails leathery skin to feet, multiple brown skin discolorations, red areas of dry skin and multiple small nodules, rle redness and mutiple brown nodules, +2 pitting edema both feet - MUSCULOSKELETAL/RHEUMATOLOGICAL Hx Arthritis: Yes Hx Rheumatoid Arthritis: No - GASTROINTESTINAL Hx Gastroesophageal Reflux: No - PSYCHIATRIC Hx Substance Use: No - ANESTHESIA Hx Anesthesia: No Meds Allergies/Adverse Reactions: Allergies Allergy/AdvReac Type Severity Reaction Status Date / Time No Known Allergies Allergy Verified 01/24/17 12:47 - Medications Medications: Current Medications Acetaminophen (Tylenol 325mg Tab) 650 mg PO Q6H PRN PRN Reason: Pain Last Admin: 01/25/17 16:08 Dose: 650 mg Albuterol/Ipratropium (Duoneb 3 Mg/0.5 Mg (3 Ml) Ud) 3 ml IH Q2H PRN PRN Reason: Shortness of Breath Amlodipine Besylate (Norvasc) 10 mg PO DAILY [facility] Last Admin: 01/26/17 10:31 Dose: 10 mg Atorvastatin Calcium (Lipitor) 10 mg PO 1700 [facility] Last Admin: 01/25/17 17:27 Dose: 10 mg Doxycycline Hyclate (Doryx) 100 mg PO Q12 [facility] PRN Reason: Protocol Stop: 02/05/17 22:01 Gabapentin (Neurontin) 300 mg PO BID [facility] PRN Reason: Protocol Last Admin: 01/26/17 10:31 Dose: 300 mg Guaifenesin/Dextromethorphan (Robitussin Dm) 5 ml PO Q4H PRN PRN Reason: Cough and congestion Heparin Sodium (Porcine) (Heparin) 5,000 units SC Q12 [facility] PRN Reason: Protocol Last Admin: 01/26/17 10:29 Dose: 5,000 units Hydralazine HCl (Apresoline) 10 mg PO QID PRN PRN Reason: For SBP>170 & diastolic>100 Meropenem 1g/NS 100mL IVPB (Meropenem 1g/Ns 100ml Ivpb) 1 gm in 100 mls @ 100 mls/hr IVPB Q12 [facility] PRN Reason: Protocol Stop: 01/31/17 23:31 Last Admin: 01/26/17 11:53 Dose: 100 mls/hr Insulin Human Regular (Humulin R Low) 0 units SC ACHS [facility] PRN Reason: Protocol Last Admin: 01/26/17 07:35 Dose: Not Given Non-Formulary Medication (Nebivolol [Bystolic]) 10 mg PO DAILY [facility] Pantoprazole Sodium (Protonix Ec Tab) 40 mg PO ACB [facility] Last Admin: 01/26/17 07:48 Dose: 40 mg Physical Exam - Constitutional Appears: Well, Non-toxic, No Acute Distress - Extremities Exam Additional comments: vasc: nonpalpable pedal pulses, TG wnl, CFT < 3 sec to all digits neuro; grossly diminished derm: open ulceration to left lateral ankle measuring 3cm x 2.5cm x 0.2cm with fibrous,greenish discoloration base, fibrotic border, mild drainage noted, no purulence, mild malodor, no underlying fluctuance or abscess formation, no probe to bone, no ascending cellulitis ortho; mild pain to palpation of left lateral ankle - Neurological Exam Neurological exam: Alert, Oriented x3 - Psychiatric Exam Psychiatric exam: Normal Affect, Normal Mood Results - Vital Signs Recent Vital Signs: Last Vital Signs Temp 97.2 F L 01/26/17 07:26 Pulse 100 H 01/26/17 07:20 Resp 28 H 01/26/17 07:20 BP 158/92 H 01/26/17 10:31 Pulse Ox 99 01/26/17 07:20 - Labs Result Diagrams: 01/26/17 05:30 01/26/17 05:30 Labs: Laboratory Results - last 24 hr 01/25/17 01/25/17 01/25/17 07:13 09:35 11:22 WBC RBC Hgb Hct MCV MCH MCHC RDW Plt Count MPV Gran % Lymph % (Auto) [place] % (Auto) Eos % (Auto) Baso % (Auto) Gran # Lymph # [place] # Eos # Baso # PT INR Sodium 143 Potassium 3.7 Chloride 112 H Carbon Dioxide 20 L Anion Gap 15 BUN 23 H Creatinine 2.4 H Est GFR ( Amer) 36 Est GFR (Non-Af Amer) 30 POC Glucose (mg/dL) 107 137 H Random Glucose 95 Hemoglobin A1c Calcium 6.3 L* Phosphorus 3.3 Magnesium 1.5 L Total Bilirubin 0.5 AST 22 ALT 39 Alkaline Phosphatase 36 L Lactate Dehydrogenase 546 Total Creatine Kinase 68 Troponin I 0.19 H* D Total Protein 5.3 L Albumin 2.6 L Globulin 2.7 Albumin/Globulin Ratio 1.0 L Triglycerides 178 H Cholesterol 54 L LDL Cholesterol Direct < 30 HDL Cholesterol 20 L TSH 3rd Generation Urine Opiates Screen Urine Methadone Screen Ur Barbiturates Screen Ur Phencyclidine Scrn Ur Amphetamines Screen U Benzodiazepines Scrn U Oth Cocaine Metabols U Cannabinoids Screen 01/25/17 01/25/17 01/26/17 13:45 17:10 05:30 WBC 15.4 H D RBC 3.97 Hgb 9.9 L Hct 30.9 L MCV 77.8 L MCH 24.9 L MCHC 32.0 RDW 17.8 H Plt Count 357 MPV 8.6 Gran % 86.9 H Lymph % (Auto) 7.3 L [place] % (Auto) 4.6 Eos % (Auto) 1.1 L Baso % (Auto) 0.1 Gran # 13.38 H Lymph # 1.1 L [place] # 0.7 H Eos # 0.2 Baso # 0.02 PT INR Sodium Potassium Chloride Carbon Dioxide Anion Gap BUN Creatinine Est GFR ( Amer) Est GFR (Non-Af Amer) POC Glucose (mg/dL) 112 H Random Glucose Hemoglobin A1c Calcium Phosphorus Magnesium Total Bilirubin AST ALT Alkaline Phosphatase Lactate Dehydrogenase Total Creatine Kinase Troponin I Total Protein Albumin Globulin Albumin/Globulin Ratio Triglycerides Cholesterol LDL Cholesterol Direct HDL Cholesterol TSH 3rd Generation Urine Opiates Screen Negative Urine Methadone Screen Negative Ur Barbiturates Screen Negative Ur Phencyclidine Scrn Negative Ur Amphetamines Screen Negative U Benzodiazepines Scrn Negative U Oth Cocaine Metabols Negative U Cannabinoids Screen Negative 01/26/17 01/26/17 01/26/17 05:30 05:30 06:00 WBC RBC Hgb Hct MCV MCH MCHC RDW Plt Count MPV Gran % Lymph % (Auto) [place] % (Auto) Eos % (Auto) Baso % (Auto) Gran # Lymph # [place] # Eos # Baso # PT 11.0 INR 1.02 Sodium 142 Potassium 3.0 L Chloride 105 Carbon Dioxide 24 Anion Gap 16 BUN 16 Creatinine 1.1 Est GFR ( Amer) > 60 Est GFR (Non-Af Amer) > 60 POC Glucose (mg/dL) Random Glucose 142 H Hemoglobin A1c Calcium 8.0 L Phosphorus Magnesium Total Bilirubin 0.7 AST 34 ALT 38 Alkaline Phosphatase 62 Lactate Dehydrogenase 430 Total Creatine Kinase 81 Troponin I 0.23 H* D Total Protein 6.7 Albumin 3.3 Globulin 3.3 Albumin/Globulin Ratio 1.0 L Triglycerides Cholesterol LDL Cholesterol Direct HDL Cholesterol TSH 3rd Generation 1.93 Urine Opiates Screen Urine Methadone Screen Ur Barbiturates Screen Ur Phencyclidine Scrn Ur Amphetamines Screen U Benzodiazepines Scrn U Oth Cocaine Metabols U Cannabinoids Screen 01/26/17 06:00 WBC RBC Hgb Hct MCV MCH MCHC RDW Plt Count MPV Gran % Lymph % (Auto) [place] % (Auto) Eos % (Auto) Baso % (Auto) Gran # Lymph # [place] # Eos # Baso # PT INR Sodium Potassium Chloride Carbon Dioxide Anion Gap BUN Creatinine Est GFR ( Amer) Est GFR (Non-Af Amer) POC Glucose (mg/dL) Random Glucose Hemoglobin A1c 6.9 H Calcium Phosphorus Magnesium Total Bilirubin AST ALT Alkaline Phosphatase Lactate Dehydrogenase Total Creatine Kinase Troponin I Total Protein Albumin Globulin Albumin/Globulin Ratio Triglycerides Cholesterol LDL Cholesterol Direct HDL Cholesterol TSH 3rd Generation Urine Opiates Screen Urine Methadone Screen Ur Barbiturates Screen Ur Phencyclidine Scrn Ur Amphetamines Screen U Benzodiazepines Scrn U Oth Cocaine Metabols U Cannabinoids Screen Assessment & Plan - Assessment and Plan (Free Text) Assessment: 42 y/o male seen at bedside in CCU for left ankle ulceration secondary to diabetes Plan: patient evaluated and chart reviewed discussed in detail with attending Dr. Castro labs and vitals reviewed; WBC 15.4 continue IV abx as per ID wound cx obtained Rx X rays of left ankle cleansed wound with saline, applied betadine, Optifoam to left ankle podiatry will continue to follow while patient remains in house <Piero Castro - Last Filed: 01/26/17 15:27> Meds - Medications Medications: Current Medications Acetaminophen (Tylenol 325mg Tab) 650 mg PO Q6H PRN PRN Reason: Pain Last Admin: 01/25/17 16:08 Dose: 650 mg Albuterol/Ipratropium (Duoneb 3 Mg/0.5 Mg (3 Ml) Ud) 3 ml IH Q2H PRN PRN Reason: Shortness of Breath Amlodipine Besylate (Norvasc) 10 mg PO DAILY [facility] Last Admin: 01/26/17 10:31 Dose: 10 mg Atorvastatin Calcium (Lipitor) 10 mg PO 1700 [facility] Last Admin: 01/25/17 17:27 Dose: 10 mg Doxycycline Hyclate (Doryx) 100 mg PO Q12 [facility] PRN Reason: Protocol Stop: 02/05/17 22:01 Gabapentin (Neurontin) 300 mg PO BID [facility] PRN Reason: Protocol Last Admin: 01/26/17 10:31 Dose: 300 mg Guaifenesin/Dextromethorphan (Robitussin Dm) 5 ml PO Q4H PRN PRN Reason: Cough and congestion Heparin Sodium (Porcine) (Heparin) 5,000 units SC Q12 [facility] PRN Reason: Protocol Last Admin: 01/26/17 10:29 Dose: 5,000 units Hydralazine HCl (Apresoline) 10 mg PO QID PRN PRN Reason: For SBP>170 & diastolic>100 Meropenem 1g/NS 100mL IVPB (Meropenem 1g/Ns 100ml Ivpb) 1 gm in 100 mls @ 100 mls/hr IVPB Q12 [facility] PRN Reason: Protocol Stop: 01/31/17 23:31 Last Admin: 01/26/17 11:53 Dose: 100 mls/hr Insulin Human Regular (Humulin R Low) 0 units SC ACHS [facility] PRN Reason: Protocol Last Admin: 01/26/17 11:45 Dose: Not Given Non-Formulary Medication (Nebivolol [Bystolic]) 10 mg PO DAILY [facility] Last Admin: 01/26/17 10:00 Dose: Not Given Pantoprazole Sodium (Protonix Ec Tab) 40 mg PO ACB [facility] Last Admin: 01/26/17 07:48 Dose: 40 mg Results - Vital Signs Recent Vital Signs: Last Vital Signs Temp 97.2 F L 01/26/17 07:26 Pulse 87 01/26/17 12:50 Resp 31 H 01/26/17 12:50 BP 166/88 H 01/26/17 12:00 Pulse Ox 92 L 01/26/17 12:50 - Labs Result Diagrams: 01/26/17 05:30 01/26/17 05:30 Labs: Laboratory Results - last 24 hr 01/25/17 01/25/17 01/25/17 07:13 11:22 17:10 WBC RBC Hgb Hct MCV MCH MCHC RDW Plt Count MPV Gran % Lymph % (Auto) [place] % (Auto) Eos % (Auto) Baso % (Auto) Gran # Lymph # [place] # Eos # Baso # PT INR Sodium Potassium Chloride Carbon Dioxide Anion Gap BUN Creatinine Est GFR ( Amer) Est GFR (Non-Af Amer) POC Glucose (mg/dL) 107 137 H 112 H Random Glucose Hemoglobin A1c Calcium Total Bilirubin AST ALT Alkaline Phosphatase Lactate Dehydrogenase Total Creatine Kinase Troponin I Total Protein Albumin Globulin Albumin/Globulin Ratio TSH 3rd Generation 01/26/17 01/26/17 01/26/17 05:30 05:30 05:30 WBC 15.4 H D RBC 3.97 Hgb 9.9 L Hct 30.9 L MCV 77.8 L MCH 24.9 L MCHC 32.0 RDW 17.8 H Plt Count 357 MPV 8.6 Gran % 86.9 H Lymph % (Auto) 7.3 L [place] % (Auto) 4.6 Eos % (Auto) 1.1 L Baso % (Auto) 0.1 Gran # 13.38 H Lymph # 1.1 L [place] # 0.7 H Eos # 0.2 Baso # 0.02 PT 11.0 INR 1.02 Sodium 142 Potassium 3.0 L Chloride 105 Carbon Dioxide 24 Anion Gap 16 BUN 16 Creatinine 1.1 Est GFR ( Amer) > 60 Est GFR (Non-Af Amer) > 60 POC Glucose (mg/dL) Random Glucose 142 H Hemoglobin A1c Calcium 8.0 L Total Bilirubin 0.7 AST 34 ALT 38 Alkaline Phosphatase 62 Lactate Dehydrogenase 430 Total Creatine Kinase 81 Troponin I 0.23 H* D Total Protein 6.7 Albumin 3.3 Globulin 3.3 Albumin/Globulin Ratio 1.0 L TSH 3rd Generation 01/26/17 01/26/17 06:00 06:00 WBC RBC Hgb Hct MCV MCH MCHC RDW Plt Count MPV Gran % Lymph % (Auto) [place] % (Auto) Eos % (Auto) Baso % (Auto) Gran # Lymph # [place] # Eos # Baso # PT INR Sodium Potassium Chloride Carbon Dioxide Anion Gap BUN Creatinine Est GFR ( Amer) Est GFR (Non-Af Amer) POC Glucose (mg/dL) Random Glucose Hemoglobin A1c 6.9 H Calcium Total Bilirubin AST ALT Alkaline Phosphatase Lactate Dehydrogenase Total Creatine Kinase Troponin I Total Protein Albumin Globulin Albumin/Globulin Ratio TSH 3rd Generation 1.93 Attending/Attestation - Attestation I have personally seen and examined this patient.: Yes I have fully participated in the care of the patient.: Yes I have reviewed all pertinent clinical information: Yes
--- NOTE | 2017-01-26 16:56 | CARD ---
APPROVED REPORT EXAM: Two-dimensional and M-mode echocardiogram with Doppler and color Doppler. INDICATION CP/LVFX 2D DIMENSIONS Left Atrium (2D)5.0 (1.6-4.0cm)IVSd1.4 (0.7-1.1cm) LVDd4.8 (3.9-5.9cm)PWd1.5 (0.7-1.1cm) LVDs2.9 (2.5-4.0cm)FS (%) 40.1 % LVEF (%)70.6 (>50%) M-Mode DIMENSIONS Aortic Root3.80 (2.2-3.7cm)Aortic Cusp Exc.1.80 (1.5-2.0cm) Aortic Valve AoV Peak Dnztimvz689.0cm/Vazquez Peak GR.15mmHgLVOT Peak Rerxbomp702.0cm/s LVOT VTI28.50cm Mitral Valve MV E Bixsmckb947.0cm/sMV A Amoygfca634.0cm/sE/A ratio1.1 TDI Lateral E' Peak V13.80cm/sMedial E' Peak V10.70cm/sE/Lateral E'8.6 E/Medial E'11.0 Pulmonary Valve PV Peak Rhkslctw556.0cm/sPV Peak Grad.8mmHg Tricuspid Valve TR Peak Zjquihef685oi/sRAP UXIZLEDX04ihAjJA Peak Gr.19mmHg [id number] LEFT VENTRICLE The left ventricle is normal size. There is mild concentric left ventricular hypertrophy. The left ventricular function is normal.EF-65-70% There is normal LV segmental wall motion. The left ventricular diastolic function is normal. No left ventricle thrombus noted on this study. There is no ventricular septal defect visualized. There is no left ventricular aneurysm. There is no mass noted in the left ventricle. RIGHT VENTRICLE The right ventricle is normal size. There is normal right ventricular wall thickness. The right ventricular systolic function is normal. ATRIA The left atrium is mildly dilated. The right atrium size is normal. The interatrial septum is intact with no evidence for an atrial septal defect. AORTIC VALVE The aortic valve is thickened but opens well. There is trace to mild aortic regurgitation. There is no aortic valvular stenosis. There is no aortic valvular vegetation. MITRAL VALVE The mitral valve is thickened but opens well. Mitral regurgitation is trace to mild. There is no mitral valve stenosis. There is no evidence of mitral valve prolapse. TRICUSPID VALVE The tricuspid valve leaflets are thickened , but open well. There is trace to mild tricuspid regurgitation.RVSP-29 mmof Hg. There is no tricuspid valve stenosis. There is no tricuspid valve prolapse or vegetation. PULMONIC VALVE The pulmonic valve is not well visualized. GREAT VESSELS The aortic root is normal in size. The ascending aorta is normal in size. The pulmonary artery is normal. The IVC is normal in size and collapses >50% with inspiration. PERICARDIAL EFFUSION There is no pleural effusion. There is no pericardial effusion. <Conclusion> The left ventricle is normal size. There is mild concentric left ventricular hypertrophy. The left ventricular function is normal.EF-65-70% There is trace to mild aortic regurgitation. Mitral regurgitation is trace to mild. There is trace to mild tricuspid regurgitation.RVSP-29 mmof Hg. The IVC is normal in size and collapses >50% with inspiration. There is no pericardial effusion.
[2017-01-26] MEDS: Sodium Chloride 0.45% 1,000 ML IV SCH (18:10)
--- NOTE | 2017-01-26 18:30 | PN ---
DATE: 01/26/2017 HISTORY OF PRESENT ILLNESS: A 42-year-old male with past medical history of hypertension, diabetes, gout and hyperlipidemia, admitted with severe sepsis secondary to pneumonia. Nephrology service foll owing for acute renal failure. The patient reports feeling well. Denies any shortness of breath. Dye taken out earlier today. Ball s been urinating frequently all day and subsequently after the Dye removed. PHYSICAL EXAMINATION: VITAL SIGNS: This morning, blood pressure 158/92, heart rate 103, respirations 32, O2 sat 98% on yanira m air. GENERAL: No distress. Conversing coherently, in full sentences. HEENT: Moist mucous membranes. No JVD appreciated. CHEST: Mild basilar rales on the right, otherwise clear to auscultation bilaterally. No rhonchi, no wheezes. CARDIOVASCULAR: S1, S2 positive. No murmurs, no gallops, no rubs. ABDOMEN: Soft, nondistended, nontender. EXTREMITIES: Moderate bilateral lower leg edema. Bilateral upper extremity edema present. Good cap illary refill. PSYCHIATRIC: Normal affect, normal mood. LABORATORY DATA: WBC 15.4, hemoglobin 9.9, hematocrit 30.9, platelets 357. Chemistry panel: Sodium 142, potassium 3.0, chloride 105, bicarb 24, BUN 16, creatinine 1.1, glucose 142, calcium 8.0, album in 3.3, hemoglobin A1c of 6.9. Troponin 0.23. ASSESSMENT: 1. Acute kidney injury. Appears to be primarily prerenal etiology in the setting of severe sepsis as well as loss of renal autoregulation due to being on NSAIDs and ARB. Renal function markedly improve d with volume resuscitation; however, there may likely be a component of acute tubular necrosis as we ll as the patient is now polyuric. Changing IV fluids to half NS at 100 mL per hour. Avoid nephrotoxi c agents. 2. Severe sepsis, on doxycycline and meropenem. Should consider increasing frequency of meropenem t o q. 8 hours as renal function is returning to baseline. No renal dose adjustment needed for doxycyc line. 3. Hypertension. Blood pressure elevated today. Restarted on nebivolol and amlodipine. Would hold losartan and hydrochlorothiazide for now. No need for strict blood pressure control. If systolic bl ood pressure greater than 160, can give p.r.n. hydralazine p.o. 4. Diabetes with diabetic neuropathy. UA showing proteinuria, although this was in the setting of a cute kidney injury and likely tubular dysfunction. Repeat UA once renal function stable and no longe r polyuric. 5. Gout per patient's history, although report of polyarthritis is atypical for gout. Unclear if wor kup done for other forms of . We will check CAT[place], avoid NSAIDs. 6. Electrolyte abnormalities. Hypokalemia in the setting of polyuria and likely tubular dysfunction. Received a total of 80 mEq of potassium today. We will give another 40 p.o. additionally. Continue to monitor. We will give IV magnesium sulfate 2 gram as well to be run over 2 hours as magnesium wa s low yesterday. Brandon Bills MD cc: [id number] TT: 01/26/2017 18:29:26 Confirmation # [id number] Dictation # [id number]
[2017-01-27] MEDS: Sodium Chloride 0.45% 1,000 ML IV SCH ×2 (04:42→16:06)
[2017-01-27 07:52] LABS: ADD MANUAL DIFF? NO
[2017-01-27 07:55] LABS: BASO # 0.02 K/mm3 (0.0-2.0); BASO % 0.2 % (0.0-3.0); EOS # 0.4 (0.0-0.7); EOS % 3.2 % (1.5-5.0); GRAN # 9.24 (1.4-6.5); GRAN % 72.5 % (50.0-68.0); HEMATOCRIT 30.9 % (42.0-52.0); LYMPH # 2.2 (1.2-3.4); LYMPH % 17.4 % (22.0-35.0); MEAN CELL VOLUME 77.1 fL (80.0-105.0); MEAN CORPUSCULAR HEMOGLOBIN 24.9 pg (25.0-35.0); MEAN CORPUSCULAR HGB CONC 32.4 g/dl (31.0-37.0); MEAN PLATELET VOLUME 9.2 fl (7.0-11.0); MONO # 0.9 (0.1-0.6); MONO % 6.7 % (1.0-6.0); PLATELET COUNT 387 10^3/uL (120.0-450.0); RED CELL DISTRIBUTION WIDTH 17.3 % (11.5-14.5); WHITE BLOOD COUNT 12.7 10^3/ul (4.5-11.0)
[2017-01-27 08:05] LABS: INR 1.03 (0.93-1.08)
[2017-01-27 08:07] LABS: BILIRUBIN,TOTAL 0.7 mg/dL (0.2-1.3); CHLORIDE 99 mmol/L (98-107); GFR AFRICAN-AMERICAN > 60; POTASSIUM 3.2 mmol/L (3.6-5.0); TOTAL PROTEIN 6.5 g/dL (5.8-8.3)
[2017-01-27] MEDS: Pantoprazole 40 mg EC Tab PO SCH (08:14)
[2017-01-27] MEDS: Insulin Reg-LOW-Coverage SC SCH ×4 (08:14→22:00)
[2017-01-27 08:18] LABS: IRON 23 ug/dL (45-180)
[2017-01-27 08:33] LABS: ALKALINE PHOSPHATASE 65 U/L (38-133); ALT/SGPT 33 U/L (7-56); AST/SGOT 31 U/L (15-59); BLOOD UREA NITROGEN 8 mg/dL (7-21); CALCIUM 8.5 mg/dL (8.4-10.5); CARBON DIOXIDE 29 mmol/L (21-33); GLUCOSE,RANDOM 112 mg/dL (70-110); SODIUM 137 mmol/L (132-148)
--- NOTE | 2017-01-27 09:00 | CP.PCM.PN ---
<Micaela Guzman - Last Filed: 01/27/17 08:57> Subjective - Date & Time of Evaluation Date of Evaluation: 01/27/17 Time of Evaluation: 07:45 - Subjective Subjective: 42 yo male pt seen at bedside w/ Dr. Castro for f/u of left ankle non-healing ulceration. Pt says he has had this ulcer for several years. Denies any acute events overnight. Denies pain or discomfort to the ankle. Denies f/n/v/c/sob/ cp. Denies any other pedal problems at this time. Objective - Vital Signs/Intake and Output Vital Signs (last 24 hours): Temp Pulse Resp BP Pulse Ox 98 F 97 H 22 158/102 H 96 01/26/17 16:00 01/27/17 03:10 01/26/17 16:00 01/27/17 05:31 01/26/17 16:00 Intake and Output: 01/27/17 01/27/17 06:59 18:59 Intake Total 420 Output Total 500 Balance -80 - Medications Medications: Current Medications Acetaminophen (Tylenol 325mg Tab) 650 mg PO Q6H PRN PRN Reason: Pain Last Admin: 01/25/17 16:08 Dose: 650 mg Albuterol/Ipratropium (Duoneb 3 Mg/0.5 Mg (3 Ml) Ud) 3 ml IH Q2H PRN PRN Reason: Shortness of Breath Amlodipine Besylate (Norvasc) 10 mg PO DAILY [facility] Last Admin: 01/26/17 10:31 Dose: 10 mg Atorvastatin Calcium (Lipitor) 10 mg PO 1700 [facility] Last Admin: 01/26/17 17:27 Dose: 10 mg Doxycycline Hyclate (Doryx) 100 mg PO Q12 [facility] PRN Reason: Protocol Stop: 02/05/17 22:01 Last Admin: 01/26/17 22:11 Dose: 100 mg Gabapentin (Neurontin) 300 mg PO BID [facility] PRN Reason: Protocol Last Admin: 01/26/17 17:27 Dose: 300 mg Guaifenesin/Dextromethorphan (Robitussin Dm) 5 ml PO Q4H PRN PRN Reason: Cough and congestion Heparin Sodium (Porcine) (Heparin) 5,000 units SC Q12 [facility] PRN Reason: Protocol Last Admin: 01/26/17 22:11 Dose: 5,000 units Hydralazine HCl (Apresoline) 10 mg PO QID PRN PRN Reason: For SBP>170 & diastolic>100 Last Admin: 01/27/17 05:31 Dose: 10 mg Meropenem 1g/NS 100mL IVPB (Meropenem 1g/Ns 100ml Ivpb) 1 gm in 100 mls @ 100 mls/hr IVPB Q12 [facility] PRN Reason: Protocol Stop: 01/31/17 23:31 Last Admin: 01/26/17 22:12 Dose: 100 mls/hr Sodium Chloride (Sodium Chloride 0.45%) 1,000 mls @ 100 mls/hr IV .Q10H [facility] Last Admin: 01/27/17 04:42 Dose: 100 mls/hr Insulin Human Regular (Humulin R Low) 0 units SC ACHS [facility] PRN Reason: Protocol Last Admin: 01/27/17 08:14 Dose: Not Given Non-Formulary Medication (Nebivolol [Bystolic]) 10 mg PO DAILY [facility] Last Admin: 01/26/17 10:00 Dose: Not Given Pantoprazole Sodium (Protonix Ec Tab) 40 mg PO ACB [facility] Last Admin: 01/27/17 08:14 Dose: 40 mg - Labs Labs: 01/27/17 07:51 01/27/17 07:51 PT 11.1 Seconds (9.9-11.8) 01/27/17 07:51 INR 1.03 (0.93-1.08) 01/27/17 07:51 APTT 26.4 Seconds (23.7-30.8) 01/24/17 13:43 - Constitutional Appears: Non-toxic, No Acute Distress - Extremities Exam Extremities Exam: absent: Calf Tenderness Additional comments: vasc: nonpalpable pedal pulses, TG wnl, CFT < 3 sec to all digits neuro; grossly diminished derm: open ulceration to left lateral ankle measuring 3cm x 2.5cm x 0.2cm w/ granular base, fibrotic border, mild drainage noted, no purulence, mild malodor , no underlying fluctuance or abscess formation, no probe to bone, no ascending cellulitis ortho; mild pain to palpation of left lateral ankle - Neurological Exam Neurological Exam: Alert, Awake, Oriented x3 - Psychiatric Exam Psychiatric exam: Normal Affect, Normal Mood Assessment and Plan - Assessment and Plan (Free Text) Assessment: 42 y/o male w/ left ankle ulceration secondary to diabetes Plan: patient S&E w/ Dr. 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 (interpreted by me) Wound cleansed w/ saline, betadine applied and optifoam to ankle Podiatry will follow <Piero Castro - Last Filed: 01/30/17 08:15> Objective - Vital Signs/Intake and Output Vital Signs (last 24 hours): Temp Pulse Resp BP Pulse Ox 98.3 F 107 H 18 120/82 96 01/29/17 08:00 01/29/17 08:00 01/29/17 08:00 01/29/17 14:01 01/29/17 08:00 - Labs Labs: 01/29/17 06:00 01/29/17 06:00 PT 11.1 Seconds (9.9-11.8) 01/27/17 07:51 INR 1.03 (0.93-1.08) 01/27/17 07:51 APTT 26.4 Seconds (23.7-30.8) 01/24/17 13:43 Attending/Attestation - Attestation I have personally seen and examined this patient.: Yes I have fully participated in the care of the patient.: Yes I have reviewed all pertinent clinical information, including history, physical exam and plan: Yes
[2017-01-27 09:03] LABS: TROPONIN I 0.15 ng/mL
[2017-01-27] MEDS: Meropenem 1g/NS 100mL IVPB 1 GM/100 ML PIGGYBACK IVPB SCH ×2 (09:23→21:56)
[2017-01-27] MEDS: Non Formulary Medication (Nebivolol [Bystolic] 10 MG) PO SCH (09:24)
[2017-01-27] MEDS ORDERED: Potassium Chloride 40 mEq/30 ml LIQ UD PO ONE (10:22)
--- NOTE | 2017-01-27 11:56 | PN ---
DATE: 01/27/2017 REASON FOR CONSULTATION AND FOLLOWUP: Positive troponin, acute kidney injury, morbid obesity, altere d mental status, lethargic, improving. BRIEF CLINICAL HISTORY: A 42-year-old morbidly obese male who is mentally slow, past history signifi cant for diabetes, hypertension, hyperlipidemia as mentioned, mentally slow, chronic kidney disease, history of dialysis 1999 according to the patient, was in [facility], then patient is off dialys is according to the normal renal function, admitted here with very weak and lethargic, acute kidney i njury. Creatinine 4. Troponin was 0.06, then 0.49 and then 0.19. Now the troponin trended to 0.15. Denies any chest pain, shortness of breath, any palpitation. PHYSICAL EXAMINATION: VITAL SIGNS: Temperature afebrile, heart rate 95, blood pressure 145/91. HEENT: PERRLA. Extraocular muscles intact. NECK: Supple. No carotid bruits. No thyromegaly. CHEST: Clear to auscultation. HEART: S1, S2 regular. ABDOMEN: Soft. EXTREMITIES: Clubbing and cyanosis negative. LABORATORY DATA: Blood workup as follows: WBC 12.7, hemoglobin 10, hematocrit 30.9, platelet count 387. Chemistry shows sodium ____, potassium ____, chloride ____, carbon dioxide 29, anion gap of 12, BUN 8, creatinine 0.7. Troponin 0.15. IMPRESSION AND PLAN: Acute kidney injury, positive troponin. Rule out [id number] myocardial inf arction, coronary artery disease versus secondary to kidney injury ____ troponin, having multiple ri sk factors for coronary artery disease and recent history of acute injury. Suggest a stress test to avoid cardiac catheterization to prevent renal insult. In the interim, continue aggressive treatment for blood pressure. Supplement potassium. Avoid nephrotoxic medication. We will follow with you. We will schedule a stress test on Sunday. Discussed with the patient. The patient had echocardiogr aphy on 01/26/2017 that showed ejection fraction 65%-70%, trace to mild aortic regurgitation, trace to mild mitral regurgitation, trace to mild tricuspid regurgitation, right ventricular systolic pressur e 29. Will do stress test on Sunday. Thank you, Dr. Mendoza, for providing the opportunity in taking care of the patient. Garcia Pack MD cc: [facility] TT: 01/27/2017 11:55:34 Confirmation # [id number] Dictation # [id number]
--- NOTE | 2017-01-27 13:01 | CP.PCM.PN ---
<Mich Hoyos - Last Filed: 01/27/17 13:07> Subjective - Date & Time of Evaluation Date of Evaluation: 01/27/17 Time of Evaluation: 08:15 - Subjective Subjective: Hospitalist Progress Note Patient seen and examined at bedside. No acute events overnight. Pt states that he is doing well with no complaints at this time. He denies feeling Ball, dizziness, f/c, SOB, CP, n/v/d, pain, dysuria or hematuria. Objective - Vital Signs/Intake and Output Vital Signs (last 24 hours): Temp Pulse Resp BP Pulse Ox 98.0 F 95 H 20 145/91 H 100 01/27/17 06:00 01/27/17 06:00 01/27/17 06:00 01/27/17 09:22 01/27/17 06:00 Intake and Output: 01/27/17 01/27/17 06:59 18:59 Intake Total 420 180 Output Total 500 Balance -80 180 - Medications Medications: Current Medications Acetaminophen (Tylenol 325mg Tab) 650 mg PO Q6H PRN PRN Reason: Pain Last Admin: 01/25/17 16:08 Dose: 650 mg Albuterol/Ipratropium (Duoneb 3 Mg/0.5 Mg (3 Ml) Ud) 3 ml IH Q2H PRN PRN Reason: Shortness of Breath Amlodipine Besylate (Norvasc) 10 mg PO DAILY [facility] Last Admin: 01/27/17 09:22 Dose: 10 mg Atorvastatin Calcium (Lipitor) 10 mg PO 1700 [facility] Last Admin: 01/26/17 17:27 Dose: 10 mg Doxycycline Hyclate (Doryx) 100 mg PO Q12 ERASMO PRN Reason: Protocol Stop: 02/05/17 22:01 Last Admin: 01/27/17 09:22 Dose: 100 mg Ferrous Sulfate (Feosol) 324 mg PO BID ERASMO Gabapentin (Neurontin) 300 mg PO BID ERASMO PRN Reason: Protocol Last Admin: 01/27/17 09:22 Dose: 300 mg Guaifenesin/Dextromethorphan (Robitussin Dm) 5 ml PO Q4H PRN PRN Reason: Cough and congestion Heparin Sodium (Porcine) (Heparin) 5,000 units SC Q12 ERASMO PRN Reason: Protocol Last Admin: 01/27/17 09:24 Dose: 5,000 units Hydralazine HCl (Apresoline) 10 mg PO QID PRN PRN Reason: For SBP>170 & diastolic>100 Last Admin: 01/27/17 05:31 Dose: 10 mg Meropenem 1g/NS 100mL IVPB (Meropenem 1g/Ns 100ml Ivpb) 1 gm in 100 mls @ 100 mls/hr IVPB Q12 ERASMO PRN Reason: Protocol Stop: 01/31/17 23:31 Last Admin: 01/27/17 09:23 Dose: 100 mls/hr Sodium Chloride (Sodium Chloride 0.45%) 1,000 mls @ 100 mls/hr IV .Q10H [facility] Last Admin: 01/27/17 04:42 Dose: 100 mls/hr Magnesium Sulfate/Dextrose (Magnesium Sulfate 1 Gm/100 Ml D5w) 1 gm in 100 mls @ 100 mls/hr IVPB Q2H [facility] Stop: 01/27/17 15:44 Insulin Human Regular (Humulin R Low) 0 units SC ACHS ERASMO PRN Reason: Protocol Last Admin: 01/27/17 11:53 Dose: Not Given Losartan Potassium (Cozaar) 100 mg PO DAILY [facility] Last Admin: 01/27/17 10:05 Dose: 100 mg Non-Formulary Medication (Nebivolol [Bystolic]) 10 mg PO DAILY [facility] Last Admin: 01/27/17 09:24 Dose: Not Given Pantoprazole Sodium (Protonix Ec Tab) 40 mg PO ACB [facility] Last Admin: 01/27/17 08:14 Dose: 40 mg - Labs Labs: 01/27/17 07:51 01/27/17 07:51 PT 11.1 Seconds (9.9-11.8) 01/27/17 07:51 INR 1.03 (0.93-1.08) 01/27/17 07:51 APTT 26.4 Seconds (23.7-30.8) 01/24/17 13:43 - Constitutional Appears: No Acute Distress - Head Exam Head Exam: ATRAUMATIC, NORMAL INSPECTION, NORMOCEPHALIC - Eye Exam Eye Exam: EOMI, Normal appearance, PERRL Pupil Exam: NORMAL ACCOMODATION, PERRL - ENT Exam ENT Exam: Mucous Membranes Moist, Normal Exam - Neck Exam Neck Exam: Full ROM, Normal Inspection. absent: Lymphadenopathy - Respiratory Exam Respiratory Exam: Clear to Ausculation Bilateral, NORMAL BREATHING PATTERN. absent: Wheezes - Cardiovascular Exam Cardiovascular Exam: REGULAR RHYTHM, RRR, +S1, +S2. absent: Murmur - GI/Abdominal Exam GI & Abdominal Exam: Soft. absent: Distended, Tenderness - Extremities Exam Extremities Exam: Full ROM, Normal Capillary Refill, Normal Inspection. absent : Joint Swelling, Pedal Edema - Back Exam Back Exam: NORMAL INSPECTION - Neurological Exam Neurological Exam: Alert, Awake, Oriented x3 - Psychiatric Exam Psychiatric exam: Normal Affect, Normal Mood - Skin Skin Exam: Dry, Intact, Normal Color, Warm Additional comments: L ankle ulcer Assessment and Plan - Assessment and Plan (Free Text) Assessment: This is a 42Y M PMH HTN, HLD, DM, gout, CHF admitted for sepsis, AMS, ERICA, and elevated troponin. Plan: 1. Sepsis - Bilateral Upper lobe Pneumonia seen on chest CT - Leukocytosis trending down 12.7 today - Abx: Doxycycline changed to PO, Continue Merrem, robutissin prn cough - Duoneb prn SOB - CT abd/pelvis was unremarkable for intrabdominal abnormalities - ID Consulted for recs - Wound culture and blood culture negative, Urine culture pending - Leigionella negative 2. ERICA- resolved - Cr .7 - Avoid nephrotoxic drugs - Nephro consulted f/u recs - Renal ultrasound showed nonobstructing L renal calculus - Will continue to monitor electrolytes and replace as needed - Avoid NSAID use 3. Elevated troponin - Troponin dec 0.23--> .15 - Repeat EKG showed sinus tach, QTC 466 (which was known to be prolonged on previous EKG) - Cardiology consulted - scheduled stress test on sunday - Echo- EF of 65-70% - trace MR, TR, AR - TSH normal, Cholesterol panel showed mildly elevated triglycerides and low HDL - HgbA1c 6.9 4. HTN - Norvasc and Bystolic restarted - Hydralazine prn - As per Nephro, can restart Losartan/HCTZ as outpatient 5. DM - HgbA1c 6.9 - Continue ISS and blood glucose monitoring - Continue neurontin for neuropathy 6. Hypokalemia - K of 3.2 - Repleted as needed 7. Wound on both extremities - F/u podiatry consult and recs - wound care 8. HLD - Continue Lipitor 9. Hx of gout - Continue to hold allopurinol 10. GI ppx: Protonix DVT ppx: Heparin PT Eval and treat Case and plan was seen, reviewed, and discussed in detail with Dr Mendoza. <Makayla Mendoza - Last Filed: 01/27/17 14:07> Objective - Vital Signs/Intake and Output Vital Signs (last 24 hours): Temp Pulse Resp BP Pulse Ox 98.0 F 95 H 20 145/91 H 100 01/27/17 06:00 01/27/17 06:00 01/27/17 06:00 01/27/17 09:22 01/27/17 06:00 Intake and Output: 01/27/17 01/27/17 06:59 18:59 Intake Total 420 180 Output Total 500 Balance -80 180 - Medications Medications: Current Medications Acetaminophen (Tylenol 325mg Tab) 650 mg PO Q6H PRN PRN Reason: Pain Last Admin: 01/25/17 16:08 Dose: 650 mg Albuterol/Ipratropium (Duoneb 3 Mg/0.5 Mg (3 Ml) Ud) 3 ml IH Q2H PRN PRN Reason: Shortness of Breath Amlodipine Besylate (Norvasc) 10 mg PO DAILY [facility] Last Admin: 01/27/17 09:22 Dose: 10 mg Atorvastatin Calcium (Lipitor) 10 mg PO 1700 ERASMO Last Admin: 01/26/17 17:27 Dose: 10 mg Doxycycline Hyclate (Doryx) 100 mg PO Q12 ERASMO PRN Reason: Protocol Stop: 02/05/17 22:01 Last Admin: 01/27/17 09:22 Dose: 100 mg Ferrous Sulfate (Feosol) 324 mg PO BID ERASMO Gabapentin (Neurontin) 300 mg PO BID ERASMO PRN Reason: Protocol Last Admin: 01/27/17 09:22 Dose: 300 mg Guaifenesin/Dextromethorphan (Robitussin Dm) 5 ml PO Q4H PRN PRN Reason: Cough and congestion Heparin Sodium (Porcine) (Heparin) 5,000 units SC Q12 ERASMO PRN Reason: Protocol Last Admin: 01/27/17 09:24 Dose: 5,000 units Hydralazine HCl (Apresoline) 10 mg PO QID PRN PRN Reason: For SBP>170 & diastolic>100 Last Admin: 01/27/17 05:31 Dose: 10 mg Meropenem 1g/NS 100mL IVPB (Meropenem 1g/Ns 100ml Ivpb) 1 gm in 100 mls @ 100 mls/hr IVPB Q12 ERASMO PRN Reason: Protocol Stop: 01/31/17 23:31 Last Admin: 01/27/17 09:23 Dose: 100 mls/hr Sodium Chloride (Sodium Chloride 0.45%) 1,000 mls @ 100 mls/hr IV .Q10H ERASMO Last Admin: 01/27/17 04:42 Dose: 100 mls/hr Magnesium Sulfate/Dextrose (Magnesium Sulfate 1 Gm/100 Ml D5w) 1 gm in 100 mls @ 100 mls/hr IVPB Q2H ERASMO Stop: 01/27/17 15:44 Last Admin: 01/27/17 13:19 Dose: 100 mls/hr Insulin Human Regular (Humulin R Low) 0 units SC ACHS ERASMO PRN Reason: Protocol Last Admin: 01/27/17 11:53 Dose: Not Given Losartan Potassium (Cozaar) 100 mg PO DAILY ERASMO Last Admin: 01/27/17 10:05 Dose: 100 mg Non-Formulary Medication (Nebivolol [Bystolic]) 10 mg PO DAILY ERASMO Last Admin: 01/27/17 09:24 Dose: Not Given Pantoprazole Sodium (Protonix Ec Tab) 40 mg PO ACB ERASMO Last Admin: 01/27/17 08:14 Dose: 40 mg - Labs Labs: 01/27/17 07:51 01/27/17 07:51 PT 11.1 Seconds (9.9-11.8) 01/27/17 07:51 INR 1.03 (0.93-1.08) 01/27/17 07:51 APTT 26.4 Seconds (23.7-30.8) 01/24/17 13:43 Attending/Attestation - Attestation I have personally seen and examined this patient.: Yes I have fully participated in the care of the patient.: Yes I have reviewed all pertinent clinical information, including history, physical exam and plan: Yes Notes (Text): I have seen and examined patient with the resident. This is 42 year old male with history of HTN, dyslipidemia, DM-2, gout who was sent from day care for evaluation of dizziness and generalized weakness and found to have sepsis secondary to bilateral upper lobe pneumonia, acute kidney injury and elevated troponins. Continue meropenem and doxy as per ID. Cultures pending. Procal is 0.66. He is alert, awake and oriented x3. Creatinine back to baseline. FeNa suggestive of pre renal etiology. Troponin elevation is probably secondary to renal impairment vs NSTEMI. Billing Analyst on board. Echo noted. Stress test scheduled for Sunday. BP noted to be high. Will continue norvasc, losartan, bystolic and hydralazine prn. Upon discharge patient will follow up with Dr Marlin Mendoza
[2017-01-27] MEDS: Magnesium Sulfate 1 gm in D5W 1 GM/100 ML BAG IVPB SCH ×2 (13:19→14:49)
--- NOTE | 2017-01-27 13:24 | PN ---
DATE: 01/27/2017 A 42-year-old male with past medical history of hypertension, diabetes, gout, and hyperlipidemia, adm itted with severe sepsis secondary to pneumonia. Nephrology service following for acute renal failur e. The patient reports feeling well. Denies any shortness of breath, tolerating diet, has not gotten ou t of bed, unclear why. PHYSICAL EXAMINATION: VITAL SIGNS: Blood pressure this morning 158/102, heart rate 95, respirations 20, O2 sat 100% on yanira m air. GENERAL: No distress, conversing coherently in full sentences. HEENT: Moist mucous membranes. Nonicteric. CHEST: Clear to auscultation bilaterally. No rales, no wheezes, no rhonchi. CARDIOVASCULAR: S1, S2 normal, no murmurs, no rubs, no gallops. ABDOMEN: Soft, obese, nontender, nondistended. EXTREMITIES: Mild lower extremity edema, decreased from previous. SKIN: Warm. No cyanosis. PSYCHIATRIC: Normal mood, normal affect. LABORATORY DATA: This morning WBC 12.7, hemoglobin 10.0, hematocrit 30.9, platelets 387. Chemistry: Sodium 137, potassium 3.2, chloride 99, bicarbonate 29, BUN 8, creatinine 0.7, glucose 112, calcium 8.5. Iron 23, TIBC 286, iron saturation 8%, albumin 3.3. ASSESSMENT: 1. Acute kidney injury, primarily prerenal etiology in the setting of severe sepsis as well as loss of renal autoregulation due to being on NSAIDS and ARB. Renal function now back to baseline with no indication of chronic kidney disease. The patient has been polyuric which may indicate some componen t of acute tubular necrosis, currently on half an NSAID at 100 mL per hour. Continue the same. Avoi d nephrotoxic agents. 2. Severe sepsis on doxycycline and meropenem. Should consider increasing frequency of meropenem to q. 8 hours as renal function has returned to normal. No renal dose adjustment needed for doxycyclin e. 3. Hypertension, uncontrolled. Currently on amlodipine and p.r.n. hydralazine. Received a dose of losartan yesterday. Continuing the same today. Continue to hold her hydrochlorothiazide for now. 4. Diabetes with diabetic nephropathy. Urinalysis on admission showing proteinuria, although this w as in the setting of acute kidney injury and likely tubular dysfunction. Repeat UA once renal functi on stable and no longer polyuric. 5. Gout per patient's history, although report of polyarthritis is atypical for gout. We will check CATALINA, avoid NSAIDS. 6. Electrolytes abnormalities. Hypocalcemia in the setting of polyuria likely tubular dysfunction. Received 40 mEq of potassium this morning. Continue to monitor. 7. Anemia. Iron studies consistent with iron deficiency as well as anemia of chronic disease. We w ill supplement with p.o. iron, avoid IV iron in the setting of sepsis for now. Brandon Bills MD cc: [id number] TT: 01/27/2017 13:22:57 Confirmation # [id number] Dictation # [id number]
--- NOTE | 2017-01-27 18:40 | RAD ---
PROCEDURE: Left Ankle Radiographs. HISTORY: Rule out osteomyelitis COMPARISON: No prior study available for comparison Findings: The current study reveals fusion changes of the tibiotalar as well and probably the talocalcaneal articulation. There also appears to be fusion changes of the tarsal bones and probable fusion changes of the tarsal and 3 and the 4th metatarsals. Clinical correlation recommended. There is moderate to significant soft tissue swelling surrounding the ankle joint and extending proximally. Less severe infiltration changes distally within the soft tissues of the foot. Findings are consistent with a cellulitis however the possibility of early osteomyelitis cannot be excluded. Followup MRI is suggested. No definitive evidence of acute displaced fracture nor dislocation. Five impression: Diffuse soft tissue swelling and infiltration of the ankle and proximal of lower extremity consistent with cellulitis. Early osteomyelitis cannot be completely excluded and therefore followup MRI recommended. Extensive of of multi articular fusion changes of the hindfoot and midfoot as above
--- NOTE | 2017-01-27 20:18 | PN ---
DATE: 01/27/2017 The patient is in bed in no acute distress. PHYSICAL EXAMINATION: VITAL SIGNS: Temperature is 97, blood pressure is 140/90, respiratory rate of 18. HEENT: Unremarkable. NECK: Supple. LUNGS: Have decreased breath sounds. HEART: Normal S1, S2. ABDOMEN: Soft, nontender. LABORATORY DATA: Reveals a white count of 12,700, hemoglobin of 10, platelets of 387. Chemistries r eveal the BUN of 8, creatinine of 0.7. Troponin 0.15. Urinalysis is noted. Serology is nonreactive . Microbiology reveals the blood cultures are no growth. Urine cultures no growth. Ankle cultures no growth. Review of the orders reveals the patient to be on p.o. doxycycline, meropenem. Ankle on the x-ray is noted. Dr. Mendoza's progress note is reviewed. ASSESSMENT AND PLAN: This is a 42-year-old male seen earlier this morning in room 375, bed 1, with m orbid obesity, body mass index of 45 with diabetes mellitus, hypertension, gout, history of lower ext remity edema and recent hospitalization in [facility], admitted with severe sepsis, h ealthcare-associated pneumonia, possible gram-positive cocci versus gram-negative linda, with acute kid stacy injury, on meropenem and doxycycline with negative cultures, negative CAT scan of the abdomen, da y #4 of meropenem and doxycycline, complete 4-7 days, with an elevated procalcitonin. We will repeat a procalcitonin. Demarco Portillo MD cc: [id number] TT: 01/27/2017 20:18:21 Confirmation # [id number] Dictation # [id number]
[2017-01-28 06:14] LABS: ALKALINE PHOSPHATASE 59 U/L (38-133); ALT/SGPT 36 U/L (7-56); AST/SGOT 26 U/L (15-59); BILIRUBIN,TOTAL 0.7 mg/dL (0.2-1.3); BLOOD UREA NITROGEN 6 mg/dL (7-21); CALCIUM 8.3 mg/dL (8.4-10.5); CARBON DIOXIDE 29 mmol/L (21-33); CHLORIDE 98 mmol/L (98-107); GFR AFRICAN-AMERICAN > 60; GLUCOSE,RANDOM 115 mg/dL (70-110); POTASSIUM 3.2 mmol/L (3.6-5.0); SODIUM 137 mmol/L (132-148); TOTAL PROTEIN 6.3 g/dL (5.8-8.3)
[2017-01-28 06:15] LABS: HEMATOCRIT 31.3 % (42.0-52.0); MEAN CELL VOLUME 76.9 fL (80.0-105.0); MEAN CORPUSCULAR HEMOGLOBIN 25.1 pg (25.0-35.0); MEAN CORPUSCULAR HGB CONC 32.6 g/dl (31.0-37.0); MEAN PLATELET VOLUME 9.1 fl (7.0-11.0); RED CELL DISTRIBUTION WIDTH 16.9 % (11.5-14.5); WHITE BLOOD COUNT 12.3 10^3/ul (4.5-11.0)
[2017-01-28 06:25] LABS: TROPONIN I 0.03 ng/mL
[2017-01-28] MEDS: Pantoprazole 40 mg EC Tab PO SCH (07:27)
[2017-01-28] MEDS: Insulin Reg-LOW-Coverage SC SCH ×4 (07:31→22:46)
[2017-01-28] MEDS ORDERED: Potassium Chloride 20 mEq ER Tab PO STA (09:17)
[2017-01-28] MEDS: Meropenem 1g/NS 100mL IVPB 1 GM/100 ML PIGGYBACK IVPB SCH ×2 (09:22→22:46)
[2017-01-28] MEDS: Non Formulary Medication (Nebivolol [Bystolic] 10 MG) PO SCH (09:27)
[2017-01-28] MEDS: Sodium Chloride 0.45% 1,000 ML IV SCH (09:33)
--- NOTE | 2017-01-28 12:06 | CP.PCM.PN ---
<Mich Hoyos - Last Filed: 01/28/17 11:58> Subjective - Date & Time of Evaluation Date of Evaluation: 01/28/17 Time of Evaluation: 07:10 - Subjective Subjective: Hospitalist Progress Note Patient seen and examined at bedside. No acute events overnight. No complaints at this time. For stress test tomorrow. He denies feeling Ball, dizziness, f/c, SOB, CP, n/v/d, pain, dysuria or hematuria. Objective - Vital Signs/Intake and Output Vital Signs (last 24 hours): Temp Pulse Resp BP Pulse Ox 97.9 F 99 H 18 125/76 99 01/28/17 06:00 01/28/17 06:00 01/28/17 06:00 01/28/17 09:21 01/28/17 06:00 Intake and Output: 01/28/17 01/28/17 06:59 18:59 Intake Total 840 240 Output Total 2650 Balance -1810 240 - Medications Medications: Current Medications Acetaminophen (Tylenol 325mg Tab) 650 mg PO Q6H PRN PRN Reason: Pain Last Admin: 01/25/17 16:08 Dose: 650 mg Albuterol/Ipratropium (Duoneb 3 Mg/0.5 Mg (3 Ml) Ud) 3 ml IH Q2H PRN PRN Reason: Shortness of Breath Amlodipine Besylate (Norvasc) 10 mg PO DAILY [facility] Last Admin: 01/28/17 09:21 Dose: 10 mg Atorvastatin Calcium (Lipitor) 10 mg PO 1700 [facility] Last Admin: 01/27/17 17:17 Dose: 10 mg Doxycycline Hyclate (Doryx) 100 mg PO Q12 [facility]AS[facility] PRN Reason: Protocol Stop: 02/05/17 22:01 Last Admin: 01/28/17 09:22 Dose: 100 mg Ferrous Sulfate (Feosol) 324 mg PO BID [facility] Last Admin: 01/28/17 09:21 Dose: 324 mg Gabapentin (Neurontin) 300 mg PO BID [facility] PRN Reason: Protocol Last Admin: 01/28/17 09:21 Dose: 300 mg Guaifenesin/Dextromethorphan (Robitussin Dm) 5 ml PO Q4H PRN PRN Reason: Cough and congestion Heparin Sodium (Porcine) (Heparin) 5,000 units SC Q12 ERASMO PRN Reason: Protocol Last Admin: 01/28/17 09:30 Dose: 5,000 units Hydralazine HCl (Apresoline) 10 mg PO QID PRN PRN Reason: For SBP>170 & diastolic>100 Last Admin: 01/27/17 05:31 Dose: 10 mg Meropenem 1g/NS 100mL IVPB (Meropenem 1g/Ns 100ml Ivpb) 1 gm in 100 mls @ 100 mls/hr IVPB Q12 ERASOM PRN Reason: Protocol Stop: 01/31/17 23:31 Last Admin: 01/28/17 09:22 Dose: 100 mls/hr Sodium Chloride (Sodium Chloride 0.45%) 1,000 mls @ 75 mls/hr IV .[id number] [facility] Last Admin: 01/28/17 09:33 Dose: 75 mls/hr Insulin Human Regular (Humulin R Low) 0 units SC ACHS [facility]ASMO PRN Reason: Protocol Last Admin: 01/28/17 11:54 Dose: Not Given Losartan Potassium (Cozaar) 100 mg PO DAILY [facility] Last Admin: 01/28/17 09:22 Dose: 100 mg Non-Formulary Medication (Nebivolol [Bystolic]) 10 mg PO DAILY [facility] Last Admin: 01/28/17 09:27 Dose: Not Given Pantoprazole Sodium (Protonix Ec Tab) 40 mg PO ACB [facility] Last Admin: 01/28/17 07:27 Dose: 40 mg - Labs Labs: 01/28/17 05:40 01/28/17 05:40 PT 11.1 Seconds (9.9-11.8) 01/27/17 07:51 INR 1.03 (0.93-1.08) 01/27/17 07:51 APTT 26.4 Seconds (23.7-30.8) 01/24/17 13:43 - Constitutional Appears: No Acute Distress - Head Exam Head Exam: ATRAUMATIC, NORMAL INSPECTION, NORMOCEPHALIC - Eye Exam Eye Exam: EOMI, Normal appearance, PERRL - ENT Exam ENT Exam: Mucous Membranes Moist, Normal Exam - Neck Exam Neck Exam: Full ROM, Normal Inspection. absent: Lymphadenopathy - Respiratory Exam Respiratory Exam: Clear to Ausculation Bilateral, NORMAL BREATHING PATTERN. absent: Wheezes - Cardiovascular Exam Cardiovascular Exam: REGULAR RHYTHM, RRR, +S1, +S2. absent: Murmur - GI/Abdominal Exam GI & Abdominal Exam: Soft. absent: Distended, Tenderness - Extremities Exam Extremities Exam: absent: Calf Tenderness, Joint Swelling, Pedal Edema - Neurological Exam Neurological Exam: Alert, Awake, Oriented x3 - Psychiatric Exam Psychiatric exam: Normal Affect, Normal Mood - Skin Skin Exam: Dry, Intact, Normal Color, Warm Assessment and Plan - Assessment and Plan (Free Text) Assessment: 42Y M PMH of HTN, HLD, DM, gout, CHF admitted for sepsis, AMS, ERICA, and elevated troponin now mostly resolved. Scheduled for stress test tomorrow. 1. Sepsis now resolved - Bilateral Upper lobe Pneumonia seen on chest CT - Leukocytosis trending down 12.3 today - Abx: Doxycycline changed to PO, Continue Merrem, robutissin prn cough - Duoneb prn SOB - CT abd/pelvis was unremarkable for intrabdominal abnormalities - ID Consulted for recs - Cont Alden and Doxy - F/u Septic work up - Leigionella negative 2. ERICA- resolved - Cr .7 - Avoid nephrotoxic drugs - Nephro consulted f/u recs - Renal ultrasound showed nonobstructing L renal calculus - Will continue to monitor electrolytes and replace as needed - Avoid NSAID use 3. Elevated troponin - Scheduled for stress test jesica - Troponin dec 0.23--> .15 --> .03 - Repeat EKG showed sinus tach, QTC 466 (which was known to be prolonged on previous EKG) - Cardiology consulted - scheduled stress test on sunday - Echo- EF of 65-70% - trace MR, TR, AR - TSH normal, Cholesterol panel showed mildly elevated triglycerides and low HDL 4. HTN - Norvasc and Bystolic - Hydralazine prn - As per Nephro, can restart Losartan/HCTZ as outpatient 5. DM - HgbA1c 6.9 - Continue ISS and blood glucose monitoring - Continue neurontin for neuropathy 6. Hypokalemia - K of 3.2 - Replete as needed 7. Wound on both extremities - F/u podiatry consult and recs - wound care 8. HLD - Continue Lipitor 9. Hx of gout - Continue to hold allopurinol 10. GI ppx: Protonix DVT ppx: Heparin PT Eval and treat Case and plan was seen, reviewed, and discussed in detail with Dr Dalton. <Jayda Dalton - Last Filed: 01/28/17 13:51> Objective - Vital Signs/Intake and Output Vital Signs (last 24 hours): Temp Pulse Resp BP Pulse Ox 97.9 F 99 H 18 125/76 99 01/28/17 06:00 01/28/17 06:00 01/28/17 06:00 01/28/17 09:21 01/28/17 06:00 Intake and Output: 01/28/17 01/28/17 06:59 18:59 Intake Total 840 480 Output Total 2650 Balance -1810 480 - Medications Medications: Current Medications Acetaminophen (Tylenol 325mg Tab) 650 mg PO Q6H PRN PRN Reason: Pain Last Admin: 01/25/17 16:08 Dose: 650 mg Albuterol/Ipratropium (Duoneb 3 Mg/0.5 Mg (3 Ml) Ud) 3 ml IH Q2H PRN PRN Reason: Shortness of Breath Amlodipine Besylate (Norvasc) 10 mg PO DAILY [facility] Last Admin: 01/28/17 09:21 Dose: 10 mg Atorvastatin Calcium (Lipitor) 10 mg PO 1700 [facility] Last Admin: 01/27/17 17:17 Dose: 10 mg Doxycycline Hyclate (Doryx) 100 mg PO Q12 [facility] PRN Reason: Protocol Stop: 02/05/17 22:01 Last Admin: 01/28/17 09:22 Dose: 100 mg Ferrous Sulfate (Feosol) 324 mg PO BID [facility] Last Admin: 01/28/17 09:21 Dose: 324 mg Gabapentin (Neurontin) 300 mg PO BID [facility] PRN Reason: Protocol Last Admin: 01/28/17 09:21 Dose: 300 mg Guaifenesin/Dextromethorphan (Robitussin Dm) 5 ml PO Q4H PRN PRN Reason: Cough and congestion Heparin Sodium (Porcine) (Heparin) 5,000 units SC Q12 [facility] PRN Reason: Protocol Last Admin: 01/28/17 09:30 Dose: 5,000 units Hydralazine HCl (Apresoline) 10 mg PO QID PRN PRN Reason: For SBP>170 & diastolic>100 Last Admin: 01/27/17 05:31 Dose: 10 mg Meropenem 1g/NS 100mL IVPB (Meropenem 1g/Ns 100ml Ivpb) 1 gm in 100 mls @ 100 mls/hr IVPB Q12 ERASMO PRN Reason: Protocol Stop: 01/31/17 23:31 Last Admin: 01/28/17 09:22 Dose: 100 mls/hr Sodium Chloride (Sodium Chloride 0.45%) 1,000 mls @ 75 mls/hr IV .[id number] [facility] Last Admin: 01/28/17 09:33 Dose: 75 mls/hr Insulin Human Regular (Humulin R Low) 0 units SC ACHS [facility]ASMO PRN Reason: Protocol Last Admin: 01/28/17 11:54 Dose: Not Given Losartan Potassium (Cozaar) 100 mg PO DAILY [facility] Last Admin: 01/28/17 09:22 Dose: 100 mg Non-Formulary Medication (Nebivolol [Bystolic]) 10 mg PO DAILY [facility] Last Admin: 01/28/17 09:27 Dose: Not Given Pantoprazole Sodium (Protonix Ec Tab) 40 mg PO ACB [facility] Last Admin: 01/28/17 07:27 Dose: 40 mg - Labs Labs: 01/28/17 05:40 01/28/17 05:40 PT 11.1 Seconds (9.9-11.8) 01/27/17 07:51 INR 1.03 (0.93-1.08) 01/27/17 07:51 APTT 26.4 Seconds (23.7-30.8) 01/24/17 13:43 Attending/Attestation - Attestation I have personally seen and examined this patient.: Yes I have fully participated in the care of the patient.: Yes I have reviewed all pertinent clinical information, including history, physical exam and plan: Yes Notes (Text): 01/28/17 13:46 Attending note; I have seen and examined patient with the resident. This is a 42 year old male with history of HTN, dyslipidemia, DM-2, gout who was sent from day care for evaluation of dizziness and generalized weakness and found to have sepsis secondary to bilateral upper lobe pneumonia, acute kidney injury and elevated troponins. Treated with IV meropenem and doxy as per ID. cultures negative so far. Procal is 0.66. leukocytosis is improving. Patient is clinically afebrile and nontoxic. acute renal failure; resolved. Creatinine 0.6. Troponin elevation is probably secondary to renal impairment vs NSTEMI. Case discussed with supervisor microbiology technologists Dr. Pack in detail. Stress test scheduled for tomorrow. hypertension; continue norvasc, losartan, bystolic and hydralazine prn. diabetic foot ulcer; continue wound care by Podiatry. Upon discharge patient will follow up with 01/28/17 13:51
--- NOTE | 2017-01-28 17:30 | PN ---
DATE: 01/28/2017 The patient seen is in bed, in no acute distress, nontoxic. PHYSICAL EXAMINATION: VITAL SIGNS: Temperature is 97, blood pressure is 120/80, respiratory rate of 18, heart rate of 99. HEENT: Unremarkable. NECK: Supple. LUNGS: Have decreased breath sounds. HEART: Normal S1, S2. ABDOMEN: Soft, nontender. LABORATORY DATA: Reveals a white count of 12,300, hemoglobin of 10 and platelets of 370. Chemistrie s reveal a BUN of 6, creatinine of 0.7 and ____. The patient had a procalcitonin 0.15. Microbiology reveals the ankle cultures are gram-positive cocci; identification and sensitivity is pending. The blood cultures are no growth. Review of the orders reveals the patient to be on doxycycline and meropenem. Dr. Dalton's note is reviewed. Dr. Castro's consultation is reviewed. The patient had an x-ray of the ankle. ASSESSMENT AND PLAN: A 42-year-old male with morbid obesity, body mass index of 45, diabetes mellitu s, hypertension, gout, history of lower extremity edema, recent hospitalization in [place], admit bryan with severe sepsis, healthcare-associated pneumonia with a normal procalcitonin. The patient has a gram-positive cocci from the right ankle. Day #5 of meropenem and doxycycline. The patient's ini tial procalcitonin was elevated at 0.66, and yesterday's procalcitonin was down to 0.15. Concerned a bout the ankle. Should consider MRI to rule out an underlying osteomyelitis. The x-ray of it is not ed. Early osteomyelitis cannot be excluded according to Dr. Rodriguez. Will continue the meropenem and doxycycline. Check on the identification of the gram-positive cocci from the left ankle. Recommend an MRI to rule out osteomyelitis. Will discuss with podiatry. Demarco Portillo MD cc: [id number] TT: 01/28/2017 17:29:23 Confirmation # [id number] Dictation # [id number] mn
[2017-01-28] MEDS: guaiFENesin DM 100 mg-10 mg/5 ml UD PO PRN (20:33)
--- NOTE | 2017-01-28 23:32 | CP.PCM.PN ---
Objective - Vital Signs/Intake and Output Vital Signs (last 24 hours): Temp Pulse Resp BP Pulse Ox 98.5 F 106 H 20 149/87 95 01/28/17 20:30 01/28/17 20:30 01/28/17 20:30 01/28/17 20:30 01/28/17 20:30 Intake and Output: 01/28/17 01/29/17 18:59 06:59 Intake Total 480 1020 Output Total 700 Balance 480 320 - Medications Medications: Current Medications Acetaminophen (Tylenol 325mg Tab) 650 mg PO Q6H PRN PRN Reason: Pain Last Admin: 01/25/17 16:08 Dose: 650 mg Albuterol/Ipratropium (Duoneb 3 Mg/0.5 Mg (3 Ml) Ud) 3 ml IH Q2H PRN PRN Reason: Shortness of Breath Amlodipine Besylate (Norvasc) 10 mg PO DAILY [facility] Last Admin: 01/28/17 09:21 Dose: 10 mg Atorvastatin Calcium (Lipitor) 10 mg PO 1700 [facility] Last Admin: 01/28/17 16:35 Dose: 10 mg Doxycycline Hyclate (Doryx) 100 mg PO Q12 [facility]ASMO PRN Reason: Protocol Stop: 02/05/17 22:01 Last Admin: 01/28/17 22:44 Dose: 100 mg Ferrous Sulfate (Feosol) 324 mg PO BID [facility] Last Admin: 01/28/17 17:02 Dose: 324 mg Gabapentin (Neurontin) 300 mg PO BID [facility] PRN Reason: Protocol Last Admin: 01/28/17 17:02 Dose: 300 mg Guaifenesin/Dextromethorphan (Robitussin Dm) 5 ml PO Q4H PRN PRN Reason: Cough and congestion Last Admin: 01/28/17 20:33 Dose: 5 ml Heparin Sodium (Porcine) (Heparin) 5,000 units SC Q12 [facility]ASMO PRN Reason: Protocol Last Admin: 01/28/17 22:44 Dose: 5,000 units Hydralazine HCl (Apresoline) 10 mg PO QID PRN PRN Reason: For SBP>170 & diastolic>100 Last Admin: 01/27/17 05:31 Dose: 10 mg Meropenem 1g/NS 100mL IVPB (Meropenem 1g/Ns 100ml Ivpb) 1 gm in 100 mls @ 100 mls/hr IVPB Q12 [facility]ASMO PRN Reason: Protocol Stop: 01/31/17 23:31 Last Admin: 01/28/17 22:46 Dose: 100 mls/hr Sodium Chloride (Sodium Chloride 0.45%) 1,000 mls @ 75 mls/hr IV .[id number] [facility] Last Admin: 01/28/17 09:33 Dose: 75 mls/hr Insulin Human Regular (Humulin R Low) 0 units SC ACHS [facility] PRN Reason: Protocol Last Admin: 01/28/17 22:46 Dose: Not Given Losartan Potassium (Cozaar) 100 mg PO DAILY [facility] Last Admin: 01/28/17 09:22 Dose: 100 mg Non-Formulary Medication (Nebivolol [Bystolic]) 10 mg PO DAILY [facility] Last Admin: 01/28/17 09:27 Dose: Not Given Pantoprazole Sodium (Protonix Ec Tab) 40 mg PO ACB [facility] Last Admin: 01/28/17 07:27 Dose: 40 mg - Labs Labs: 01/28/17 05:40 01/28/17 05:40 PT 11.1 Seconds (9.9-11.8) 01/27/17 07:51 INR 1.03 (0.93-1.08) 01/27/17 07:51 APTT 26.4 Seconds (23.7-30.8) 01/24/17 13:43 Assessment and Plan (1) Acute renal failure Status: Acute (2) Severe sepsis Status: Acute (3) HTN (hypertension) Status: Chronic (4) Diabetes Status: Chronic (5) Gout Status: Chronic (6) Electrolyte abnormality Status: Acute
[2017-01-29 01:13] VITALS: RESP 18
[2017-01-29] MEDS: Sodium Chloride 0.45% 1,000 ML IV SCH ×2 (02:01→15:01)
[2017-01-29 06:45] LABS: HEMATOCRIT 30.5 % (42.0-52.0); MEAN CELL VOLUME 76.6 fL (80.0-105.0); MEAN CORPUSCULAR HEMOGLOBIN 25.1 pg (25.0-35.0); MEAN CORPUSCULAR HGB CONC 32.8 g/dl (31.0-37.0); MEAN PLATELET VOLUME 8.8 fl (7.0-11.0); WHITE BLOOD COUNT 12.7 10^3/ul (4.5-11.0)
[2017-01-29 07:06] LABS: ALKALINE PHOSPHATASE 57 U/L (38-133); ALT/SGPT 38 U/L (7-56); AST/SGOT 24 U/L (15-59); BILIRUBIN,TOTAL 0.7 mg/dL (0.2-1.3); BLOOD UREA NITROGEN 6 mg/dL (7-21); CALCIUM 8.1 mg/dL (8.4-10.5); CARBON DIOXIDE 25 mmol/L (21-33); CHLORIDE 99 mmol/L (95-110); GFR AFRICAN-AMERICAN > 60; GLUCOSE,RANDOM 107 mg/dL (70-110); POTASSIUM 3.4 mmol/L (3.6-5.0); SODIUM 135 mmol/L (132-148); TOTAL PROTEIN 6.2 g/dL (5.8-8.3)
[2017-01-29] MEDS: Insulin Reg-LOW-Coverage SC SCH ×3 (08:07→17:06)
--- NOTE | 2017-01-29 08:10 | PN ---
DATE: 01/28/2017 REASON FOR CONSULTATION AND FOLLOWUP: Positive troponin, acute kidney injury, morbid obesity, altere d mental status, lethargic, improving, rule out coronary artery disease. BRIEF CLINICAL HISTORY: A 42-year-old morbidly obese male with a past medical history significant fo r mentally slow, hypertension, diabetes, hyperlipidemia, mentally slow as mentioned, chronic kidney d isease in the past, history of dialysis 1999, on dialysis, being followed in [facility]. Admitt ed with lethargic, very weak, lethargic, acute kidney injury, creatinine ____. Now, creatinine came back to normal. At that time also, troponin 0.15. Denies any chest pain. PHYSICAL EXAMINATION: VITAL SIGNS: Temperature afebrile, heart rate 99, blood pressure 120/80. HEENT: PERRLA. Extraocular muscles intact. NECK: Supple. No carotid bruits. No thyromegaly. CHEST: Clear to auscultation. HEART: S1, S2 regular. ABDOMEN: Soft. EXTREMITIES: Clubbing, cyanosis negative. BLOOD WORKUP: WBC 12.3, hemoglobin 10.____, hematocrit 31.3, platelet count 370. Chemistry shows so dium ____, potassium 3.2, chloride 119, carbon dioxide ____, anion gap 6, ____ 0.7. IMPRESSION: Troponin 0.03, abnormal troponin, cannot rule out coronary artery disease versus seconda ry to acute kidney injury, status post acute kidney injury, improved, hypokalemia, morbid obesity, hi story of kidney injury 1999 requiring dialysis, now kidney function improved without dialysis, hypert ension, hyperlipidemia, diabetes. RECOMMENDATION: We will schedule a stress test on Sunday. Try to avoid cardiac catheterization mary use of history of recent kidney injury. Last echo 01/18/2017 showed ejection fraction ____%, trace to mild mitral regurgitation, trace to mild aortic regurgitation, trace to mild tricuspid regurgitation , right ventricular systolic pressure 29. Asymptomatic, no complaint of chest pain. Scheduled for s tress test tomorrow. Keep n.p.o. after midnight for a stress test in the morning. Garcia Pack MD cc: [id number] TT: 01/28/2017 12:44:06 Confirmation # [id number] Dictation # [id number]
[2017-01-29] MEDS: Pantoprazole 40 mg EC Tab PO SCH (08:24)
[2017-01-29] MEDS ORDERED: Potassium Chloride 40 mEq/30 ml LIQ UD PO ONE ×2 (09:11→13:58)
[2017-01-29] MEDS: Non Formulary Medication (Nebivolol [Bystolic] 10 MG) PO SCH (09:52)
--- NOTE | 2017-01-29 10:05 | CP.PCM.PN ---
<ChikaNancy - Last Filed: 01/29/17 10:43> Subjective - Date & Time of Evaluation Date of Evaluation: 01/29/17 Time of Evaluation: 10:03 - Subjective Subjective: Hospitalist Progress Note Patient seen and examined at bedside. There were no acute overnight events. This am, patient was resting comfortably on the Bipap. He denies having any CP, SOB, n/v/d, numbness/tingling, dysuria or hematuria. He reports having pain in his legs bilaterally (L>R). Objective - Vital Signs/Intake and Output Vital Signs (last 24 hours): Temp Pulse Resp BP Pulse Ox 98.5 F 90 18 126/79 93 L 01/29/17 00:00 01/29/17 03:00 01/29/17 00:00 01/29/17 00:00 01/29/17 00:00 Intake and Output: 01/29/17 01/29/17 06:59 18:59 Intake Total 1970 Output Total 700 Balance 1270 - Medications Medications: Current Medications Acetaminophen (Tylenol 325mg Tab) 650 mg PO Q6H PRN PRN Reason: Pain Last Admin: 01/25/17 16:08 Dose: 650 mg Albuterol/Ipratropium (Duoneb 3 Mg/0.5 Mg (3 Ml) Ud) 3 ml IH Q2H PRN PRN Reason: Shortness of Breath Last Admin: 01/29/17 00:20 Dose: 3 ml Amlodipine Besylate (Norvasc) 10 mg PO DAILY [facility] Last Admin: 01/28/17 09:21 Dose: 10 mg Atorvastatin Calcium (Lipitor) 10 mg PO 1700 [facility] Last Admin: 01/28/17 16:35 Dose: 10 mg Doxycycline Hyclate (Doryx) 100 mg PO Q12 ERASMO PRN Reason: Protocol Stop: 02/05/17 22:01 Last Admin: 01/28/17 22:44 Dose: 100 mg Ferrous Sulfate (Feosol) 324 mg PO BID [facility] Last Admin: 01/28/17 17:02 Dose: 324 mg Gabapentin (Neurontin) 300 mg PO BID ERASMO PRN Reason: Protocol Last Admin: 01/28/17 17:02 Dose: 300 mg Guaifenesin/Dextromethorphan (Robitussin Dm) 5 ml PO Q4H PRN PRN Reason: Cough and congestion Last Admin: 01/28/17 20:33 Dose: 5 ml Heparin Sodium (Porcine) (Heparin) 5,000 units SC Q12 ERASMO PRN Reason: Protocol Last Admin: 01/28/17 22:44 Dose: 5,000 units Hydralazine HCl (Apresoline) 10 mg PO QID PRN PRN Reason: For SBP>170 & diastolic>100 Last Admin: 01/27/17 05:31 Dose: 10 mg Meropenem 1g/NS 100mL IVPB (Meropenem 1g/Ns 100ml Ivpb) 1 gm in 100 mls @ 100 mls/hr IVPB Q12 ERASMO PRN Reason: Protocol Stop: 01/31/17 23:31 Last Admin: 01/28/17 22:46 Dose: 100 mls/hr Sodium Chloride (Sodium Chloride 0.45%) 1,000 mls @ 75 mls/hr IV .[id number] [facility] Last Admin: 01/29/17 02:01 Dose: 75 mls/hr Insulin Human Regular (Humulin R Low) 0 units SC ACHS ERASMO PRN Reason: Protocol Last Admin: 01/29/17 08:07 Dose: Not Given Losartan Potassium (Cozaar) 100 mg PO DAILY [facility] Last Admin: 01/28/17 09:22 Dose: 100 mg Non-Formulary Medication (Nebivolol [Bystolic]) 10 mg PO DAILY [facility] Last Admin: 01/29/17 09:52 Dose: Not Given Pantoprazole Sodium (Protonix Ec Tab) 40 mg PO ACB [facility] Last Admin: 01/29/17 08:24 Dose: Not Given - Labs Labs: 01/29/17 06:00 01/29/17 06:00 PT 11.1 Seconds (9.9-11.8) 01/27/17 07:51 INR 1.03 (0.93-1.08) 01/27/17 07:51 APTT 26.4 Seconds (23.7-30.8) 01/24/17 13:43 - Constitutional Appears: No Acute Distress - Head Exam Head Exam: ATRAUMATIC, NORMAL INSPECTION, NORMOCEPHALIC - Eye Exam Eye Exam: Normal appearance Pupil Exam: NORMAL ACCOMODATION - ENT Exam ENT Exam: Mucous Membranes Moist - Neck Exam Neck Exam: Normal Inspection - Respiratory Exam Respiratory Exam: Clear to Ausculation Bilateral, NORMAL BREATHING PATTERN. absent: Rales, Rhonchi, Wheezes, Respiratory Distress - Cardiovascular Exam Cardiovascular Exam: REGULAR RHYTHM, +S1, +S2. absent: Tachycardia, Gallop, Murmur - GI/Abdominal Exam GI & Abdominal Exam: Soft, Normal Bowel Sounds. absent: Rigid, Tenderness, Hernia, Mass, Rebound - Extremities Exam Extremities Exam: Pedal Edema (+3 bilaterally ), Tenderness (mild tenderness bilaterally ). absent: Calf Tenderness - Neurological Exam Neurological Exam: Alert, Awake, CN II-XII Intact - Psychiatric Exam Psychiatric exam: Normal Affect, Normal Mood - Skin Skin Exam: Dry, Normal Color, Warm Assessment and Plan - Assessment and Plan (Free Text) Assessment: 42Y M PMH of HTN, HLD, DM, gout, CHF admitted for sepsis, AMS, ERICA, and elevated troponin now mostly resolved. Scheduled for stress test tomorrow. Plan: 1. Sepsis - Secondary to Pneumonia (Bilateral upper lobe) and possibly from L ankle wound - Sepsis improved, but patient continues to have leukocytosis - ID consulted- suspects possible Osteo of L ankle - Will obtain MRI to r/o osteo - Wound culture positive for Strep epidermitidis - Podiatry consulted- did ankle XR- were negative for fracture but showed soft tissue swelling - Continue Doxy and Merrem (Day 6) - Duobneb prn SOB, Robitussin prn cough, Tylenol prn fever 2. Elevated troponin - Trended down - Stress test today- will follow up results - Cardiology Consulted - Echo showed EF 65-70% 3. HTN - Continue Norvasc, Cozaar, Bystolic - Hydralazine prn 4. DM - ISS - Blood glucose monitoring ACHS - Continue Neurontin 5. Hypokalemia - K of 3.4 - Will continue to monitor and replace as needed 6. HLD - Continue Lipitor 7. Hx of gout - Allopurinol on hold GI ppx: Protonix DVT ppx: Heparin SC Physical Therapist Recommended TCU Case seen, discussed and reviewed with attending Evan PGY1 <Jayda Dalton - Last Filed: 01/29/17 15:10> Objective - Vital Signs/Intake and Output Vital Signs (last 24 hours): Temp Pulse Resp BP Pulse Ox 98.3 F 107 H 18 120/82 96 01/29/17 08:00 01/29/17 08:00 01/29/17 08:00 01/29/17 14:01 01/29/17 08:00 Intake and Output: 01/29/17 01/29/17 06:59 18:59 Intake Total 1970 240 Output Total 700 300 Balance 1270 -60 - Medications Medications: Current Medications Acetaminophen (Tylenol 325mg Tab) 650 mg PO Q6H PRN PRN Reason: Pain Last Admin: 01/25/17 16:08 Dose: 650 mg Albuterol/Ipratropium (Duoneb 3 Mg/0.5 Mg (3 Ml) Ud) 3 ml IH Q2H PRN PRN Reason: Shortness of Breath Last Admin: 01/29/17 00:20 Dose: 3 ml Amlodipine Besylate (Norvasc) 10 mg PO DAILY [facility] Last Admin: 01/29/17 14:01 Dose: 10 mg Atorvastatin Calcium (Lipitor) 10 mg PO 1700 [facility] Last Admin: 01/28/17 16:35 Dose: 10 mg Doxycycline Hyclate (Doryx) 100 mg PO Q12 ERASOM PRN Reason: Protocol Stop: 02/05/17 22:01 Last Admin: 01/29/17 13:04 Dose: Not Given Ferrous Sulfate (Feosol) 324 mg PO BID [facility] Last Admin: 01/29/17 11:30 Dose: Not Given Gabapentin (Neurontin) 300 mg PO BID [facility] PRN Reason: Protocol Last Admin: 01/29/17 11:31 Dose: Not Given Guaifenesin/Dextromethorphan (Robitussin Dm) 5 ml PO Q4H PRN PRN Reason: Cough and congestion Last Admin: 01/29/17 14:12 Dose: 5 ml Heparin Sodium (Porcine) (Heparin) 5,000 units SC Q12 ERASMO PRN Reason: Protocol Last Admin: 01/29/17 13:02 Dose: Not Given Hydralazine HCl (Apresoline) 10 mg PO QID PRN PRN Reason: For SBP>170 & diastolic>100 Last Admin: 01/27/17 05:31 Dose: 10 mg Meropenem 1g/NS 100mL IVPB (Meropenem 1g/Ns 100ml Ivpb) 1 gm in 100 mls @ 100 mls/hr IVPB Q12 ERASMO PRN Reason: Protocol Stop: 01/31/17 23:31 Last Admin: 01/29/17 13:03 Dose: Not Given Insulin Human Regular (Humulin R Low) 0 units SC ACHS [facility] PRN Reason: Protocol Last Admin: 01/29/17 13:04 Dose: Not Given Losartan Potassium (Cozaar) 100 mg PO DAILY [facility] Last Admin: 01/29/17 14:01 Dose: 100 mg Non-Formulary Medication (Nebivolol [Bystolic]) 10 mg PO DAILY [facility] Last Admin: 01/29/17 09:52 Dose: Not Given Pantoprazole Sodium (Protonix Ec Tab) 40 mg PO ACB [facility] Last Admin: 01/29/17 08:24 Dose: Not Given - Labs Labs: 01/29/17 06:00 01/29/17 06:00 PT 11.1 Seconds (9.9-11.8) 01/27/17 07:51 INR 1.03 (0.93-1.08) 01/27/17 07:51 APTT 26.4 Seconds (23.7-30.8) 01/24/17 13:43 Attending/Attestation - Attestation I have personally seen and examined this patient.: Yes I have fully participated in the care of the patient.: Yes I have reviewed all pertinent clinical information, including history, physical exam and plan: Yes Notes (Text): 01/29/17 15:08 Attending note; I have seen and examined patient with the resident. This is a 42 year old male with history of HTN, dyslipidemia, DM-2, gout who was sent from day care for evaluation of dizziness and generalized weakness and found to have sepsis secondary to bilateral upper lobe pneumonia, acute kidney injury and elevated troponins. Treated with IV meropenem and doxy as per ID. cultures negative so far. Procal is 0.66. leukocytosis is improving. Patient is clinically afebrile and nontoxic. acute renal failure; resolved. Troponin elevation is probably secondary to renal impairment vs NSTEMI. Case discussed with public health informatician Dr. Pack in detail. Stress test today. hypertension; continue norvasc, losartan, bystolic and hydralazine prn. diabetic foot ulcer; continue wound care by Podiatry. MRI ordered to rule out osteomyelitis. Physical therapy evaluation appreciated. TCU recommended. Case discussed with correctional case manager for discharge planning. Upon discharge patient will follow up with 01/29/17 15:10
[2017-01-29] MEDS ORDERED: Aminophylline 25 mg/ml Inj ONE (11:14)
[2017-01-29 11:19] VITALS: PULSE 107; TEMP 98.3; O2SAT 96
[2017-01-29] MEDS ORDERED: Potassium Chloride 20 mEq ER Tab PO ONE (12:24)
--- NOTE | 2017-01-29 12:58 | PN ---
DATE: 01/29/2017 LOCATION: Room 375, bed 1. REASON FOR CONSULTATION AND FOLLOWUP: Positive troponin, acute kidney injury, morbid obesity, altere d mental status, lethargic; now has improved, rule out coronary artery disease. HISTORY OF PRESENT ILLNESS: The patient is a 42-year-old morbidly obese male with a past medical his tory significant for mentally slow, hypertension, diabetes, hyperlipidemia, chronic kidney disease in the past, history of dialysis in the year 1999, on dialysis being followed at [facility], admit bryan with lethargy, very weak and lethargic, acute kidney injury. Creatinine 4.7, now creatinine has come back to normal. At that time, also troponin was 0.15. The patient is lying flat in bed without chest pain, shortness of breath, palpitation. PHYSICAL EXAMINATION: VITAL SIGNS: Blood pressure 120/80, respirations 18, pulse 107, temperature 98.3. HEAD: Normocephalic. EYES: Pupils normal. Conjunctivae are normal. NOSE AND THROAT: Normal. NECK: JVP low. Carotids equal. THORAX: AP diameter normal. LUNGS: Clear. CARDIOVASCULAR: S1, S2. ABDOMEN: Protuberant. No organomegaly. Bowel sounds normal. EXTREMITIES: No clubbing, no cyanosis. LABORATORY DATA: Sodium 135, potassium 3.4, BUN 6, creatinine 0.7, random sugar AST, ALT nor mal. Total protein and albumin normal. The patient's troponin on 01/24 was 0.66, repeat one was 0.4 9 and on 01/26 was 0.23. Total protein and albumin normal. WBC 12.7, hemoglobin 10.0, hematocrit 30 .5, platelet 326. DIAGNOSES: Elevated troponin, cannot rule out coronary artery disease versus secondary to acute kidn ey injury, which can be false elevation to troponin, hypokalemia, morbid obesity, history of kidney i njury in 1999 requiring dialysis, now kidney function improved without dialysis, hypertension, hyperl ipidemia, diabetes, morbid obesity. PLAN: The patient is going to have a stress test today. The patient on sodium chloride 0.445 half n ormal saline 75 mL an hour, Cozaar 100 mg daily, Doryx 100 mg p.o. q. 12 hours, ferrous sulfate 324 m g b.i.d., Lipitor 10 mg daily, meropenem 1 gram IV q. 12 hours, Maxalt 10 mg daily, gabapentin mg p.o. b.i.d., amlodipine 10 mg daily. We will give potassium 40 mEq p.o. by mouth and will repeat labs in the morning and will follow with you. Garcia Sheehan MD cc: [id number] TT: 01/29/2017 12:57:29 Confirmation # [id number] Dictation # [id number]
[2017-01-29] MEDS: Meropenem 1g/NS 100mL IVPB 1 GM/100 ML PIGGYBACK IVPB SCH (13:03)
[2017-01-29 14:03] VITALS: BP 120/82
[2017-01-29] MEDS: guaiFENesin DM 100 mg-10 mg/5 ml UD PO PRN (14:12)
--- NOTE | 2017-01-29 14:49 | MRI ---
PROCEDURE: MRI of the left ankle without contrast HISTORY: osteo COMPARISON: TECHNIQUE: MRI of the left ankle was performed in multiple planes using multiple pulse sequences. FINDINGS: There is extensive bony fusion of the ankle and midfoot. The bone marrow signal intensity is homogeneous with no evidence of marrow edema to suggest osteomyelitis. There is some subcutaneous edema which could represent passive edema or cellulitis. IMPRESSION: Bony fusion of the ankle and midfoot. No evidence of osteomyelitis
--- NOTE | 2017-01-29 16:53 | CP.PCM.DIS ---
<ChikaNancy - Last Filed: 01/29/17 19:01> Provider - Provider Date of Admission: 01/24/17 15:34 Attending physician: Jayda Dalton MD Primary care physician: Cristofer Isaac MD Consults: Cardio: Ramone ID: Joel Nephro: Sanju Podiatry: Stephanorksuleiman Time Spent in preparation of Discharge (in minutes): 35 Hospital Course - Lab Results Lab Results: Micro Results 01/26/17 12:33 Ankle - Left Gram Stain - Final 01/26/17 12:33 Ankle - Left Wound Culture - Final Staphylococcus Epidermidis 01/24/17 19:00 Ankle - Left Gram Stain - Final 01/24/17 19:00 Ankle - Left Wound Culture - Final No growth. 01/24/17 19:00 Nose MRSA Culture (Admit) - Final MRSA NOT DETECTED Most Recent Lab Values WBC 12.7 10^3/ul (4.5-11.0) H 01/29/17 06:00 RBC 3.98 10^6/uL (3.5-6.1) 01/29/17 06:00 Hgb 10.0 gm/dL (14.0-18.0) L 01/29/17 06:00 Hct 30.5 % (42.0-52.0) L 01/29/17 06:00 MCV 76.6 fL (80.0-105.0) L 01/29/17 06:00 MCH 25.1 pg (25.0-35.0) 01/29/17 06:00 MCHC 32.8 g/dl (31.0-37.0) 01/29/17 06:00 RDW 17.0 % (11.5-14.5) H 01/29/17 06:00 Plt Count 326 10^3/uL (120.0-450.0) 01/29/17 06:00 MPV 8.8 fl (7.0-11.0) 01/29/17 06:00 Gran % 72.5 % (50.0-68.0) H 01/27/17 07:51 Lymph % (Auto) 17.4 % (22.0-35.0) L 01/27/17 07:51 Clayton % (Auto) 6.7 % (1.0-6.0) H 01/27/17 07:51 Eos % (Auto) 3.2 % (1.5-5.0) 01/27/17 07:51 Baso % (Auto) 0.2 % (0.0-3.0) 01/27/17 07:51 Gran # 9.24 (1.4-6.5) H 01/27/17 07:51 Lymph # 2.2 (1.2-3.4) 01/27/17 07:51 Clayton # 0.9 (0.1-0.6) H 01/27/17 07:51 Eos # 0.4 (0.0-0.7) 01/27/17 07:51 Baso # 0.02 K/mm3 (0.0-2.0) 01/27/17 07:51 PT 11.1 Seconds (9.9-11.8) 01/27/17 07:51 INR 1.03 (0.93-1.08) 01/27/17 07:51 APTT 26.4 Seconds (23.7-30.8) 01/24/17 13:43 pCO2 39 mm/Hg (35-45) 01/25/17 09:35 pO2 129.0 mm/Hg (80-100) H 01/25/17 09:35 HCO3 21.0 mmol/L (21-28) 01/25/17 09:35 ABG pH 7.34 (7.35-7.45) L 01/25/17 09:35 ABG Total CO2 22.2 mmol.L (22-28) 01/25/17 09:35 ABG O2 Saturation 99.7 % (95-98) H 01/25/17 09:35 ABG O2 Content 12.9 ML/dl (15-23) L 01/24/17 16:00 ABG Base Excess -4.4 mmol/L (-2.0-3.0) L 01/25/17 09:35 ABG Hemoglobin 10.6 g/dL (11.7-17.4) L 01/24/17 16:00 ABG Carboxyhemoglobin 2.0 % (0.5-1.5) H 01/24/17 16:00 POC ABG HHb (Measured) 11.1 % (0-5) H 01/24/17 16:00 ABG Methemoglobin 0.5 % (0.0-3.0) 01/24/17 16:00 ABG O2 Capacity 14.6 mL/dl (16-24) L 01/24/17 16:00 ABG Potassium 3.6 mmol/L (3.6-5.2) 01/25/17 09:35 VBG pH 7.26 (7.32-7.43) L 01/24/17 13:43 VBG pCO2 58.0 (40-60) 01/24/17 13:43 VBG HCO3 26.0 mmol/l (21-28) 01/24/17 13:43 VBG Total CO2 27.8 mmol.L (22-28) 01/24/17 13:43 VBG O2 Sat (Calc) 71.7 % (40-65) H 01/24/17 13:43 VBG Base Excess -2.1 mmol/L (0.0-2.0) L 01/24/17 13:43 VBG Potassium 3.5 mmol/L (3.6-5.2) L 01/24/17 13:43 Hgb O2 Saturation 86.4 % (95.0-98.0) L 01/24/17 16:00 Sodium 143.0 mmol/L (132-148) 01/25/17 09:35 Chloride 119.0 mmol/L (98-107) H 01/25/17 09:35 Glucose 103 mg/dl (75-110) 01/25/17 09:35 Lactate 0.7 mmol/L (0.7-2.1) 01/25/17 09:35 FiO2 60.0 % 01/25/17 09:35 Sodium 135 mmol/L (132-148) 01/29/17 06:00 Potassium 3.4 mmol/L (3.6-5.0) L 01/29/17 06:00 Chloride 99 mmol/L (95-110) 01/29/17 06:00 Carbon Dioxide 25 mmol/L (21-33) 01/29/17 06:00 Anion Gap 14 (10-20) 01/29/17 06:00 BUN 6 mg/dL (7-21) L 01/29/17 06:00 Creatinine 0.7 mg/dL (0.5-1.4) 01/29/17 06:00 Est GFR ( Amer) > 60 01/29/17 06:00 Est GFR (Non-Af Amer) > 60 01/29/17 06:00 POC Glucose (mg/dL) 116 mg/dL (65-110) H 01/29/17 16:14 Random Glucose 107 mg/dL (70-110) 01/29/17 06:00 Hemoglobin A1c 6.9 % (4.2-6.5) H 01/26/17 06:00 Calcium 8.1 mg/dL (8.4-10.5) L 01/29/17 06:00 Phosphorus 3.3 mg/dL (2.5-4.5) 01/25/17 09:35 Magnesium 1.5 mg/dL (1.7-2.2) L 01/25/17 09:35 Iron 23 ug/dL (45-180) L 01/27/17 07:51 TIBC 286 ug/dL (261-462) 01/27/17 07:51 % Saturation 8 % (20-55) L 01/27/17 07:51 Total Bilirubin 0.7 mg/dL (0.2-1.3) 01/29/17 06:00 AST 24 U/L (15-59) 01/29/17 06:00 ALT 38 U/L (7-56) 01/29/17 06:00 Alkaline Phosphatase 57 U/L (38-133) 01/29/17 06:00 Ammonia 14 umol/L (9-33) 01/24/17 13:43 Lactate Dehydrogenase 450 U/L (333-699) 01/28/17 05:40 Total Creatine Kinase 52 U/L (35-230) 01/28/17 05:40 Troponin I 0.03 ng/mL D 01/28/17 05:40 NT-Pro-B Natriuret Pep 231 pg/mL (0-450) 01/24/17 13:43 Total Protein 6.2 g/dL (5.8-8.3) 01/29/17 06:00 Albumin 3.2 g/dL (3.0-4.8) 01/29/17 06:00 Globulin 3.1 gm/dL 01/29/17 06:00 Albumin/Globulin Ratio 1.0 (1.1-1.8) L 01/29/17 06:00 Triglycerides 178 mg/dL (35-160) H 01/25/17 09:35 Cholesterol 54 mg/dL (130-200) L 01/25/17 09:35 LDL Cholesterol Direct < 30 mg/dL (0-129) 01/25/17 09:35 HDL Cholesterol 20 mg/dL (29-60) L 01/25/17 09:35 Procalcitonin 0.15 NG/ML (0.19-0.49) L 01/27/17 19:30 TSH 3rd Generation 1.93 mIU/mL (0.46-4.68) 01/26/17 06:00 Arterial Blood Potassium 3.6 mmol/L (3.6-5.2) 01/25/17 09:35 Venous Blood Potassium 3.5 mmol/L (3.6-5.2) L 01/24/17 13:43 Urine Color Yellow (YELLOW) 01/24/17 14:27 Urine Appearance Sl cloudy (CLEAR) 01/24/17 14:27 Urine pH 5.5 (4.7-8.0) 01/24/17 14:27 Ur Specific [place] >= 1.030 (1.005-1.035) 01/24/17 14:27 Urine Protein 100 mg/dL (<30 mg/dL) H 01/24/17 14:27 Urine Glucose (UA) Negative mg/dL (NEGATIVE) 01/24/17 14:27 Urine Ketones Trace mg/dL (NEGATIVE) H 01/24/17 14:27 Urine Blood Negative (NEGATIVE) 01/24/17 14:27 Urine Nitrate Negative (NEGATIVE) 01/24/17 14:27 Urine Bilirubin Small (NEGATIVE) H 01/24/17 14:27 Urine Urobilinogen 1.0 E.U./dL (<1 E.U./dL) H 01/24/17 14:27 Ur Leukocyte Esterase Negative Manda/uL (NEGATIVE) 01/24/17 14:27 Urine RBC 0 - 2 /hpf (0-2) 01/24/17 14:27 Urine WBC 0 - 2 /hpf (0-6) 01/24/17 14:27 Urine Bacteria Few (NEG) 01/24/17 14:27 Ur Random Creatinine 806 mg/dL 01/24/17 16:51 Ur Random Sodium 12 meq/L 01/24/17 16:51 Ur Random Potassium 22.3 meq/L 01/24/17 16:51 Salicylates < 1 mg/dL (2.0-20.0) L 01/24/17 13:43 Urine Opiates Screen Negative (NEGATIVE) 01/25/17 13:45 Urine Methadone Screen Negative (NEGATIVE) 01/25/17 13:45 Acetaminophen < 10.0 ug/ml (10.0-20.0) L 01/24/17 13:43 Ur Barbiturates Screen Negative (NEGATIVE) 01/25/17 13:45 Ur Phencyclidine Scrn Negative (NEGATIVE) 01/25/17 13:45 Ur Amphetamines Screen Negative (NEGATIVE) 01/25/17 13:45 U Benzodiazepines Scrn Negative (NEGATIVE) 01/25/17 13:45 U Oth Cocaine Metabols Negative (NEGATIVE) 01/25/17 13:45 U Cannabinoids Screen Negative (NEGATIVE) 01/25/17 13:45 Alcohol, Quantitative < 10 mg/dL (0-10) 01/24/17 16:15 HIV 1&2 Ag/Ab, 4th Gen Nonreactive (Nonreactive) 01/26/17 06:00 Influenza Typ A,B (EIA) Negative for flu a/b (NEGATIVE) 01/24/17 16:51 Ur L.pneumophila Ag Negative (NEGATIVE) 01/24/17 16:51 Pneumocystis Source Serum 01/24/17 16:15 S. pneumoniae Antigen Not detected 01/24/17 16:15 - Hospital Course Hospital Course: This is a 42Y M with PMH of HTN, HLD, DM, gout, CHF who was admitted for sepsis secondary to bilateral pneumonia, ERICA, elevated troponin and hypercapneic respiratory failure. He was initially transferred to ICU and was placed on Bipap. His condition improved and was transferred to the floor. Patient was noted to have ERICA, which has resolved. He was see by nephrology, which reports that his ERICA could have been secondary to the Diclofenac patient takes at home for gout. It is suggested that the patient minimize NSAID use. Renal ultrasound showed non-obstructing L renal calculus. It is noted that patient had difficult IV access and received a PICC line. For the sepsis, the patient was noted to have bilateral apical pneumonia on CT chest. Abd/Pelvis CT did not show any acute intrabdominal process. The patient was treated with Doxycycline and Merrem. ID was consulted. Patient remained stable, but continued to have mildly elevated leukocytosis without fever. Osteomyelitis on the L ankle was ruled out on MRI and the elevation can be secondary to cellulitis of his L ankle. The patient was also seen by podiatry for a non-healing chronic ulcer on the L ankle. As for the elevated troponin, it was thought to be secondary to sepsis/ hypoprofusion. He was seen by cardiology who performed a stress test. It is noted that the patient was too large to complete half of the nuclear stress test. The plan for the patient is to be discharged to TCU for further strengthening. There, he will complete the second part of his stress test. We will follow up with the results. He will also complete his course of antibiotics as well. Throughout his stay, the patient remained stable. He denies having CP, SOB, n/v/d, numbness/tingling. - Date & Time of H&P Date of H&P: 01/24/17 Time of H&P: 14:00 Discharge Exam - Head Exam Head Exam: ATRAUMATIC, NORMAL INSPECTION, NORMOCEPHALIC - Eye Exam Eye Exam: Normal appearance Pupil Exam: NORMAL ACCOMODATION - ENT Exam ENT Exam: Mucous Membranes Moist - Respiratory Exam Respiratory Exam: Clear to PA & Lateral, NORMAL BREATHING PATTERN, UNREMARKABLE. absent: Rales, Rhonchi, Wheezes - Cardiovascular Exam Cardiovascular Exam: REGULAR RHYTHM, +S1, +S2. absent: Gallop, Rubs, Systolic Murmur - GI/Abdominal Exam GI & Abdominal Exam: Normal Bowel Sounds, Soft, Unremarkable. absent: Guarding , Mass, Rebound, Rigid, Tenderness - Extremities Exam Extremities exam: pedal edema (+2) - Neurological Exam Neurological exam: Alert, CN II-XII Intact, Oriented x3 - Psychiatric Exam Psychiatric exam: Normal Affect, Normal Mood - Skin Skin Exam: Dry, Normal Color, Warm Discharge Plan - Follow Up Plan Condition: GUARDED Disposition: TRANSF TO SNF Instructions: Viral Pneumonia (DC), Sepsis (GEN), Chronic Hypertension (DC) Additional Instructions: 1. Continue Same meds 2. NPO at midnight for cardiac stress in AM 3. Consult only Lindsey and Josi 4. Continue Bipap at night Referrals: Cristofer Isaac MD [Primary Care Provider] - Tracey Prater DPM [Staff Provider] - Garcia Sheehan MD [Staff Provider] - <Jayda Dalton - Last Filed: 01/30/17 15:44> Provider - Provider Date of Admission: 01/24/17 15:34 Attending physician: Jayda Dalton MD Primary care physician: Cristofer Isaac MD Hospital Course - Lab Results Lab Results: Micro Results 01/26/17 12:33 Ankle - Left Gram Stain - Final 01/26/17 12:33 Ankle - Left Wound Culture - Final Staphylococcus Epidermidis 01/24/17 19:00 Ankle - Left Gram Stain - Final 01/24/17 19:00 Ankle - Left Wound Culture - Final No growth. 01/24/17 19:00 Nose MRSA Culture (Admit) - Final MRSA NOT DETECTED Most Recent Lab Values WBC 12.7 10^3/ul (4.5-11.0) H 01/29/17 06:00 RBC 3.98 10^6/uL (3.5-6.1) 01/29/17 06:00 Hgb 10.0 gm/dL (14.0-18.0) L 01/29/17 06:00 Hct 30.5 % (42.0-52.0) L 01/29/17 06:00 MCV 76.6 fL (80.0-105.0) L 01/29/17 06:00 MCH 25.1 pg (25.0-35.0) 01/29/17 06:00 MCHC 32.8 g/dl (31.0-37.0) 01/29/17 06:00 RDW 17.0 % (11.5-14.5) H 01/29/17 06:00 Plt Count 326 10^3/uL (120.0-450.0) 01/29/17 06:00 MPV 8.8 fl (7.0-11.0) 01/29/17 06:00 Gran % 72.5 % (50.0-68.0) H 01/27/17 07:51 Lymph % (Auto) 17.4 % (22.0-35.0) L 01/27/17 07:51 Clayton % (Auto) 6.7 % (1.0-6.0) H 01/27/17 07:51 Eos % (Auto) 3.2 % (1.5-5.0) 01/27/17 07:51 Baso % (Auto) 0.2 % (0.0-3.0) 01/27/17 07:51 Gran # 9.24 (1.4-6.5) H 01/27/17 07:51 Lymph # 2.2 (1.2-3.4) 01/27/17 07:51 Clayton # 0.9 (0.1-0.6) H 01/27/17 07:51 Eos # 0.4 (0.0-0.7) 01/27/17 07:51 Baso # 0.02 K/mm3 (0.0-2.0) 01/27/17 07:51 PT 11.1 Seconds (9.9-11.8) 01/27/17 07:51 INR 1.03 (0.93-1.08) 01/27/17 07:51 APTT 26.4 Seconds (23.7-30.8) 01/24/17 13:43 pCO2 39 mm/Hg (35-45) 01/25/17 09:35 pO2 129.0 mm/Hg (80-100) H 01/25/17 09:35 HCO3 21.0 mmol/L (21-28) 01/25/17 09:35 ABG pH 7.34 (7.35-7.45) L 01/25/17 09:35 ABG Total CO2 22.2 mmol.L (22-28) 01/25/17 09:35 ABG O2 Saturation 99.7 % (95-98) H 01/25/17 09:35 ABG O2 Content 12.9 ML/dl (15-23) L 01/24/17 16:00 ABG Base Excess -4.4 mmol/L (-2.0-3.0) L 01/25/17 09:35 ABG Hemoglobin 10.6 g/dL (11.7-17.4) L 01/24/17 16:00 ABG Carboxyhemoglobin 2.0 % (0.5-1.5) H 01/24/17 16:00 POC ABG HHb (Measured) 11.1 % (0-5) H 01/24/17 16:00 ABG Methemoglobin 0.5 % (0.0-3.0) 01/24/17 16:00 ABG O2 Capacity 14.6 mL/dl (16-24) L 01/24/17 16:00 ABG Potassium 3.6 mmol/L (3.6-5.2) 01/25/17 09:35 VBG pH 7.26 (7.32-7.43) L 01/24/17 13:43 VBG pCO2 58.0 (40-60) 01/24/17 13:43 VBG HCO3 26.0 mmol/l (21-28) 01/24/17 13:43 VBG Total CO2 27.8 mmol.L (22-28) 01/24/17 13:43 VBG O2 Sat (Calc) 71.7 % (40-65) H 01/24/17 13:43 VBG Base Excess -2.1 mmol/L (0.0-2.0) L 01/24/17 13:43 VBG Potassium 3.5 mmol/L (3.6-5.2) L 01/24/17 13:43 Hgb O2 Saturation 86.4 % (95.0-98.0) L 01/24/17 16:00 Sodium 143.0 mmol/L (132-148) 01/25/17 09:35 Chloride 119.0 mmol/L (98-107) H 01/25/17 09:35 Glucose 103 mg/dl (75-110) 01/25/17 09:35 Lactate 0.7 mmol/L (0.7-2.1) 01/25/17 09:35 FiO2 60.0 % 01/25/17 09:35 Sodium 135 mmol/L (132-148) 01/29/17 06:00 Potassium 3.4 mmol/L (3.6-5.0) L 01/29/17 06:00 Chloride 99 mmol/L (95-110) 01/29/17 06:00 Carbon Dioxide 25 mmol/L (21-33) 01/29/17 06:00 Anion Gap 14 (10-20) 01/29/17 06:00 BUN 6 mg/dL (7-21) L 01/29/17 06:00 Creatinine 0.7 mg/dL (0.5-1.4) 01/29/17 06:00 Est GFR ( Amer) > 60 01/29/17 06:00 Est GFR (Non-Af Amer) > 60 01/29/17 06:00 POC Glucose (mg/dL) 116 mg/dL (65-110) H 01/29/17 16:14 Random Glucose 107 mg/dL (70-110) 01/29/17 06:00 Hemoglobin A1c 6.9 % (4.2-6.5) H 01/26/17 06:00 Calcium 8.1 mg/dL (8.4-10.5) L 01/29/17 06:00 Phosphorus 3.3 mg/dL (2.5-4.5) 01/25/17 09:35 Magnesium 1.5 mg/dL (1.7-2.2) L 01/25/17 09:35 Iron 23 ug/dL (45-180) L 01/27/17 07:51 TIBC 286 ug/dL (261-462) 01/27/17 07:51 % Saturation 8 % (20-55) L 01/27/17 07:51 Total Bilirubin 0.7 mg/dL (0.2-1.3) 01/29/17 06:00 AST 24 U/L (15-59) 01/29/17 06:00 ALT 38 U/L (7-56) 01/29/17 06:00 Alkaline Phosphatase 57 U/L (38-133) 01/29/17 06:00 Ammonia 14 umol/L (9-33) 01/24/17 13:43 Lactate Dehydrogenase 450 U/L (333-699) 01/28/17 05:40 Total Creatine Kinase 52 U/L (35-230) 01/28/17 05:40 Troponin I 0.03 ng/mL D 01/28/17 05:40 NT-Pro-B Natriuret Pep 231 pg/mL (0-450) 01/24/17 13:43 Total Protein 6.2 g/dL (5.8-8.3) 01/29/17 06:00 Albumin 3.2 g/dL (3.0-4.8) 01/29/17 06:00 Globulin 3.1 gm/dL 01/29/17 06:00 Albumin/Globulin Ratio 1.0 (1.1-1.8) L 01/29/17 06:00 Triglycerides 178 mg/dL (35-160) H 01/25/17 09:35 Cholesterol 54 mg/dL (130-200) L 01/25/17 09:35 LDL Cholesterol Direct < 30 mg/dL (0-129) 01/25/17 09:35 HDL Cholesterol 20 mg/dL (29-60) L 01/25/17 09:35 Procalcitonin 0.15 NG/ML (0.19-0.49) L 01/27/17 19:30 TSH 3rd Generation 1.93 mIU/mL (0.46-4.68) 01/26/17 06:00 Arterial Blood Potassium 3.6 mmol/L (3.6-5.2) 01/25/17 09:35 Venous Blood Potassium 3.5 mmol/L (3.6-5.2) L 01/24/17 13:43 Urine Color Yellow (YELLOW) 01/24/17 14:27 Urine Appearance Sl cloudy (CLEAR) 01/24/17 14:27 Urine pH 5.5 (4.7-8.0) 01/24/17 14:27 Ur Specific [place] >= 1.030 (1.005-1.035) 01/24/17 14:27 Urine Protein 100 mg/dL (<30 mg/dL) H 01/24/17 14:27 Urine Glucose (UA) Negative mg/dL (NEGATIVE) 01/24/17 14:27 Urine Ketones Trace mg/dL (NEGATIVE) H 01/24/17 14:27 Urine Blood Negative (NEGATIVE) 01/24/17 14:27 Urine Nitrate Negative (NEGATIVE) 01/24/17 14:27 Urine Bilirubin Small (NEGATIVE) H 01/24/17 14:27 Urine Urobilinogen 1.0 E.U./dL (<1 E.U./dL) H 01/24/17 14:27 Ur Leukocyte Esterase Negative Manda/uL (NEGATIVE) 01/24/17 14:27 Urine RBC 0 - 2 /hpf (0-2) 01/24/17 14:27 Urine WBC 0 - 2 /hpf (0-6) 01/24/17 14:27 Urine Bacteria Few (NEG) 01/24/17 14:27 Ur Random Creatinine 806 mg/dL 01/24/17 16:51 Ur Random Sodium 12 meq/L 01/24/17 16:51 Ur Random Potassium 22.3 meq/L 01/24/17 16:51 Salicylates < 1 mg/dL (2.0-20.0) L 01/24/17 13:43 Urine Opiates Screen Negative (NEGATIVE) 01/25/17 13:45 Urine Methadone Screen Negative (NEGATIVE) 01/25/17 13:45 Acetaminophen < 10.0 ug/ml (10.0-20.0) L 01/24/17 13:43 Ur Barbiturates Screen Negative (NEGATIVE) 01/25/17 13:45 Ur Phencyclidine Scrn Negative (NEGATIVE) 01/25/17 13:45 Ur Amphetamines Screen Negative (NEGATIVE) 01/25/17 13:45 U Benzodiazepines Scrn Negative (NEGATIVE) 01/25/17 13:45 U Oth Cocaine Metabols Negative (NEGATIVE) 01/25/17 13:45 U Cannabinoids Screen Negative (NEGATIVE) 01/25/17 13:45 Alcohol, Quantitative < 10 mg/dL (0-10) 01/24/17 16:15 HIV 1&2 Ag/Ab, 4th Gen Nonreactive (Nonreactive) 01/26/17 06:00 Influenza Typ A,B (EIA) Negative for flu a/b (NEGATIVE) 01/24/17 16:51 Ur L.pneumophila Ag Negative (NEGATIVE) 01/24/17 16:51 Pneumocystis Source Serum 01/24/17 16:15 S. pneumoniae Antigen Not detected 01/24/17 16:15 Attending/Attestation - Attestation I have personally seen and examined this patient.: Yes I have fully participated in the care of the patient.: Yes I have reviewed all pertinent clinical information, including history, physical exam and plan: Yes Notes (Text): 01/30/17 15:43 Attending note; I have seen and examined patient with the resident. This is a 42 year old male with history of HTN, dyslipidemia, DM-2, gout who was sent from day care for evaluation of dizziness and generalized weakness and found to have sepsis secondary to bilateral upper lobe pneumonia, acute kidney injury and elevated troponins. Treated with IV meropenem and doxy as per ID. cultures negative so far. Procal is 0.66. leukocytosis is improving. Patient is clinically afebrile and nontoxic. acute renal failure; resolved. Troponin elevation is probably secondary to renal impairment vs NSTEMI. Case discussed with process mold technician Dr. Pack in detail. Stress test today. hypertension; continue norvasc, losartan, bystolic and hydralazine prn. diabetic foot ulcer; continue wound care by Podiatry. MRI ordered to rule out osteomyelitis. Physical therapy evaluation appreciated. Transfer to TCU today. Case discussed with case preparer and liner for discharge planning. Upon discharge patient will follow up with Diagnosis; Pneumonia Acute renal failure Hypertension Diabetes Foot ulcer Elevated troponin
--- NOTE | 2017-01-29 19:13 | PN ---
DATE: 01/29/2017 The patient seen earlier today in 375, bed 1. No fevers and no chills. PHYSICAL EXAMINATION: VITAL SIGNS: Temperature is 98, blood pressure is 120/80, respiratory rate of 18. HEENT: Unremarkable. NECK: Supple. LUNGS: Have decreased breath sounds. HEART: Normal S1, S2. ABDOMEN: Soft, nontender. LABORATORY DATA: Reveals a white count of 12,700, hemoglobin of 10, platelets of 326 and a BUN of 6, creatinine of 0.7. Microbiology reveals a Staph epi from the ankle culture. Nasal MRSA is negative for MRSA. Another left ankle culture is no growth. Blood and urine cultures are negative. ASSESSMENT AND PLAN: This is a 42-year-old male with morbid obesity with body mass index of 45 with diabetes mellitus, hypertension, gout, history of lower extremity edema, recent hospitalization, admi tted with severe sepsis, healthcare-associated pneumonia, normal procalcitonin and had completed day #6 of meropenem and doxycycline had an ankle ulcer and now with an MRI of the ankle negative for oste omyelitis with patient for possible transfer to transitional care. Today is day #6 of meropenem and doxycycline. Would complete a short course of antibiotics. The patient for possible transfer to [facility], [place] for physical therapy. Demarco Portillo MD cc: [id number] TT: 01/29/2017 19:13:01 Confirmation # [id number] Dictation # [id number] mn
--- NOTE | 2017-01-29 19:28 | PN ---
DATE: 01/29/2017 A 42-year-old male with past medical history of hypertension, diabetes, gout, hyperlipidemia, admitte d for severe sepsis secondary to pneumonia. Nephrology service following for acute renal failure. The patient reports feeling well. Denies shortness of breath. Reporting some cough. Otherwise, is ambulating with a walker. Underwent stress test earlier today; results not known yet. PHYSICAL EXAMINATION: VITAL SIGNS: This morning, blood pressure 120/80, heart rate 107, respirations 18, temperature 98.3, O2 sat 96% on room air. GENERAL: No distress. Conversing coherently in full sentences. HEENT: Moist mucous membranes. Nonicteric. CHEST: Clear to auscultation bilaterally. No rales, rhonchi, no wheezes. CARDIOVASCULAR: S1, S2 positive, no murmurs, no rubs, no gallops. GASTROINTESTINAL: Abdomen soft, nontender, nondistended. EXTREMITIES: Moderate bilateral lower leg edema. Good capillary refill. PSYCHIATRIC: Normal mood, slightly blunted. SKIN: Warm to touch. No cyanosis. ASSESSMENT: 1. Acute kidney injury, primarily prerenal etiology in the setting of severe sepsis as well as loss of renal autoregulation due to being on nonsteroidal antiinflammatory drugs and angiotensin receptor olga. Serum creatinine now back to baseline with no indication of chronic kidney disease. The roberto vann may also have had tubular injury which explains why he had been polyuric, but polyuria appears to have resolved. The patient advised to use NSAIDs only sparingly, particularly with his history of acute renal failure in the past as well as current episode of acute kidney injury, although a correl ation is likely coincidental. 2. Severe sepsis. On doxycycline and meropenem. No renal dose adjustment needed for doxycycline. Meropenem should be dosed at q. 8 hours for normal renal function. 3. Hypertension, controlled. Restarted on amlodipine and losartan. Continue to hold hydrochlorothi azide for now. 4. Diabetes with diabetic nephropathy. UA on admission showing proteinuria; although, in the settin g of acute kidney injury, need to repeat UA as well as urine for microalbumin and creatinine. 5. Electrolyte abnormalities, hyperkalemia, improved. As tubular function improves, should resolve on its own. 6. Anemia secondary to iron deficiency. Started on p.o. ferrous sulfate, continue. Brandon Sanju DRUMMOND cc: [id number] TT: 01/29/2017 19:27:46 Confirmation # [id number] Dictation # [id number] mn
--- NOTE | 2017-01-30 16:10 | CARD ---
APPROVED REPORT Protocol: LEXISCAN Test Type: Lexiscan Sestamibi Stress Test Attending Physician: Dr. Garcia Sheehan Referring Physician: Dr. Makayla Mendoza Test Indications: Chest Pain Height:5 ft 6 in Weight:318lbs Medications: Duoneb,Norvasc ,Lipitor,Feosol, Robitussin,Heparin, Insulin, Cozaar,Bystolic,Protonix, Apresoline Medical History: 42 y/o male. Hx of hypertension,hyperlipidemia, diabetic, gout. Target HR: 179 bpm Resting ECG: RSR. Resting Heart Rate: 109 bpm Resting Blood Pressure: 160/80mmHg Submaximum (85%): 152 bpm PROCEDURE Pharmacologic stress testing was performed using 0.4mg per 5ml of regadenoson given intravenously over 7-10 seconds. POST EXERCISE Reason for Termination: Protocol completed Target HR: No Max HR: 105 bpm 64% of Maximum Predicted HR: 179 bpm Exercise duration: 01:04 min:sec, 0 Stage Exercise capacity: 1.0METs Max Blood Pressure: 170/80mmHg Blood Pressure response to exercise: resting hypertension - appropriate response Heart Rate response to exercise: appropriate Chest Pain: No, none Angina index: 0 Arrhythmia: No, none ST Change: No, none Deviation: 0 mm INTERPRETATION Stress EKG Conclusion: IV LEXISCAN NUCLEAR STRESS TEST NEGATIVE FOR CHEST PAIN AND NEGATIVE FOR ST-T CHANGES. NUCLEAR SCAN REPORT PENDING. Signed by Garcia Sheehan Electronically Approved: 01/29/2017 12:36:47 EXAM: Myocardial Perfusion STRESS/REST Stress Test Type: Pharmacologic Imaging Protocol Rest Spect myocardial perfusion imaging was performed in supine position 60 minutes following the injection of 30.2 mCi of Tc-99 Myoview. At peak stress, the patient was injected intravenously with 30.5mCi of Tc-99 tetrofosmin after an infusion time of 0 minutes and 10 seconds. Gated Stress Spect was performed 60 minutes after intravenous Tc-99 Myoview injection. The images were gated to evaluate regional wall motion and calculate ventricular ejection fraction.Images were reconstructed using backfilter projection method in short horizontal and verticle long axis. Spect slices were generated. LV Perfusion The quality of the study is good. The left ventricle is within normal limits in size with thickened myocardium. The right ventricle is unremarkable. The lung uptake is within normal limits. The distribution of tracer reveals normal uptake pattern throughout the LV myocardium on the stress study. The rest myocardial perfusion study shows no significant change. Wall Motion Wall motion study shows good contractility of the left ventricle. LVEF = 73%. Conclusion 1. Normal SPECT myocardial perfusion study. 2. Normal gated wall motion of the left ventricle.
== END 2017-01-29 18:42 | DRG 871 ==
LOC: ED 12:32 → ERH 15:34 → MERGE 15:34 → ERH 16:42 → CCU 18:15 → 3RSO 01-26 15:34
PROVIDERS: ADMIT Hospitalist; ATTEND Internal Medicine
PROC: 5A09557 Assistance with Respiratory Ventilation, Greater than 96 Consecutive Hours, Continuous Positive Airway Pressure (ICD-10-PCS; 2017-01-24)
PROC: B548ZZA Ultrasonography of Superior Vena Cava, Guidance (ICD-10-PCS; principal; 2017-01-25)
PROC: 02HV33Z Insertion of Infusion Device into Superior Vena Cava, Percutaneous Approach (ICD-10-PCS; 2017-01-25)
PROC: 3E0F7GC Introduction of Other Therapeutic Substance into Respiratory Tract, Via Natural or Artificial Opening (ICD-10-PCS; 2017-01-29)
DX: A41.9 Sepsis, unspecified organism (principal); J18.9 Pneumonia, unspecified organism; J96.92 Respiratory failure, unspecified with hypercapnia; I21.4 Non-ST elevation (NSTEMI) myocardial infarction; N17.0 Acute kidney failure with tubular necrosis; I13.0 Hypertensive heart and chronic kidney disease with heart failure and stage 1 through stage 4 chronic kidney disease, or unspecified chronic kidney disease; R65.21 Severe sepsis with septic shock; I50.9 Heart failure, unspecified; E87.2 Acidosis; L97.329 Non-pressure chronic ulcer of left ankle with unspecified severity; L03.116 Cellulitis of left lower limb; Z68.42 Body mass index [BMI] 45.0-49.9, adult; E11.22 Type 2 diabetes mellitus with diabetic chronic kidney disease; M10.9 Gout, unspecified; N18.9 Chronic kidney disease, unspecified; E11.40 Type 2 diabetes mellitus with diabetic neuropathy, unspecified; E11.621 Type 2 diabetes mellitus with foot ulcer; N20.0 Calculus of kidney; E87.6 Hypokalemia; R35.8 Other polyuria; E11.21 Type 2 diabetes mellitus with diabetic nephropathy; D50.9 Iron deficiency anemia, unspecified; E83.51 Hypocalcemia; L97.509 Non-pressure chronic ulcer of other part of unspecified foot with unspecified severity; E66.01 Morbid (severe) obesity due to excess calories; E78.5 Hyperlipidemia, unspecified; Z86.14 Personal history of Methicillin resistant Staphylococcus aureus infection

== ENCOUNTER 2017-01-29 19:09 | Inpatient (IN) | payer OTHER, MEDICAID ==
[2017-01-29] MEDS ORDERED: Albuterol-Ipratrop 3 mg / 0.5 (3 ml) UD IH PRN (20:18)
[2017-01-29] MEDS: Meropenem 1g/NS 100mL IVPB 1 GM/100 ML PIGGYBACK IVPB SCH (22:03)
[2017-01-29] MEDS: guaiFENesin DM 100 mg-10 mg/5 ml UD PO PRN (22:23)
[2017-01-29 22:45] VITALS: BMI 52.1
[2017-01-29] MEDS ORDERED: Pneumococcal 23-Valent Vaccine IM ONE (22:45)
[2017-01-29] MEDS: Insulin Reg-LOW-Coverage SC SCH (22:59)
[2017-01-30] MEDS: Meropenem 1g/NS 100mL IVPB 1 GM/100 ML PIGGYBACK IVPB SCH ×2 (05:22→17:39)
[2017-01-30] MEDS: guaiFENesin DM 100 mg-10 mg/5 ml UD PO PRN (05:24)
[2017-01-30] MEDS: Pantoprazole 40 mg EC Tab PO SCH (05:32)
[2017-01-30] MEDS: Insulin Reg-LOW-Coverage SC SCH ×4 (06:42→21:52)
[2017-01-30 07:55] LABS: HEMATOCRIT 31.8 % (42.0-52.0); MEAN CELL VOLUME 75.9 fL (80.0-105.0); MEAN CORPUSCULAR HEMOGLOBIN 25.3 pg (25.0-35.0); MEAN CORPUSCULAR HGB CONC 33.3 g/dl (31.0-37.0); MEAN PLATELET VOLUME 8.5 fl (7.0-11.0); RED CELL DISTRIBUTION WIDTH 17.3 % (11.5-14.5); WHITE BLOOD COUNT 10.8 [, 10^3/ul] (4.5-11.0)
[2017-01-30 08:04] LABS: ALKALINE PHOSPHATASE 62 U/L (38-133); ALT/SGPT 42 U/L (7-56); AST/SGOT 48 U/L (15-59); BILIRUBIN,TOTAL 1.1 mg/dL (0.2-1.3); BLOOD UREA NITROGEN 6 mg/dL (7-21); CALCIUM 8.7 mg/dL (8.4-10.5); CARBON DIOXIDE 26 mmol/L (21-33); CHLORIDE 100 mmol/L (98-107); GFR AFRICAN-AMERICAN > 60; GLUCOSE,RANDOM 113 mg/dL (70-110); POTASSIUM 3.7 mmol/L (3.6-5.0); SODIUM 138 mmol/L (132-148); TOTAL PROTEIN 7.3 g/dL (5.8-8.3)
--- NOTE | 2017-01-30 12:20 | CP.PCM.PN ---
<Minnie Castaneda - Last Filed: 01/30/17 12:17> Subjective - Date & Time of Evaluation Date of Evaluation: 01/30/17 Time of Evaluation: 12:17 - Subjective Subjective: 42 year old male pt was seen at bedside regarding left ankle non-healing ulceration. Pt says he has had this ulcer for several years. Denies any acute events overnight. Denies pain or discomfort to the ankle. Denies f/n/v/c/sob/ cp. Denies any other pedal problems at this time. Objective - Vital Signs/Intake and Output Vital Signs (last 24 hours): Temp Pulse Resp BP Pulse Ox 98.3 F 100 H 19 141/98 H 98 01/30/17 10:00 01/30/17 10:00 01/30/17 10:00 01/30/17 10:00 01/30/17 10:00 - Medications Medications: Current Medications Acetaminophen (Tylenol 325mg Tab) 650 mg PO Q6 PRN; Protocol PRN Reason: Pain, Mild (1-3) Albuterol/Ipratropium (Duoneb 3 Mg/0.5 Mg (3 Ml) Ud) 3 ml IH Q2H PRN PRN Reason: Shortness of Breath Amlodipine Besylate (Norvasc) 10 mg PO DAILY [facility] PRN Reason: Protocol Atorvastatin Calcium (Lipitor) 10 mg PO 1700 [facility] PRN Reason: Protocol Doxycycline Hyclate (Doryx) 100 mg PO Q12 [facility] PRN Reason: Protocol Stop: 02/05/17 22:01 Last Admin: 01/29/17 22:21 Dose: 100 mg Ferrous Sulfate (Feosol) 324 mg PO BID [facility] Gabapentin (Neurontin) 300 mg PO BID [facility] PRN Reason: Protocol Guaifenesin/Dextromethorphan (Robitussin Dm) 5 ml PO Q4H PRN PRN Reason: Cough Last Admin: 01/30/17 05:24 Dose: 5 ml Heparin Sodium (Porcine) (Heparin) 5,000 units SC 0600,1800 [facility] PRN Reason: Protocol Last Admin: 01/30/17 05:22 Dose: 5,000 units Hydralazine HCl (Apresoline) 10 mg PO QID PRN PRN Reason: Systolic Blood Pressure Meropenem 1g/NS 100mL IVPB (Meropenem 1g/Ns 100ml Ivpb) 1 gm in 100 mls @ 100 mls/hr IVPB 0600,1800 [facility] PRN Reason: Protocol Stop: 01/31/17 18:59 Last Admin: 01/30/17 05:22 Dose: 100 mls/hr Insulin Human Regular (Humulin R Low) 0 units SC ACHS [facility] PRN Reason: Protocol Last Admin: 01/30/17 06:42 Dose: Not Given Losartan Potassium (Cozaar) 100 mg PO DAILY [facility] PRN Reason: Protocol Non-Formulary Medication (Nebivolol [Bystolic]) 10 mg PO DAILY [facility] Pantoprazole Sodium (Protonix Ec Tab) 40 mg PO 0630 [facility] Last Admin: 01/30/17 05:32 Dose: 40 mg - Labs Labs: 01/30/17 07:30 01/30/17 07:30 - Constitutional Appears: Well, Non-toxic, No Acute Distress - Extremities Exam Additional comments: Left lower extremity focused exam: vasc: non-palpable pedal pulses, TG wnl, CFT < 3 sec to all digits neuro: gross sensation diminished derm: open ulceration to left lateral ankle measuring approximately 3cm x 2.5cm x 0.2cm with a fibrogranular base, fibrotic border, mild drainage noted, no purulence, mild malodor, no underlying fluctuance or abscess formation, no probe to bone, no ascending cellulitis ortho; mild pain to palpation of left lateral ankle - Neurological Exam Neurological Exam: Alert, Awake, Oriented x3 - Psychiatric Exam Psychiatric exam: Normal Affect, Normal Mood Assessment and Plan - Assessment and Plan (Free Text) Assessment: 42 y/o male w/ left ankle ulceration secondary to diabetes Plan: patient examined and evaluated discussed in detail with attending, Dr. 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 (interpreted by me) Wound cleansed w/ saline, betadine applied and optifoam to ankle Podiatry will follow while patient remains in house <Piero Castro - Last Filed: 02/02/17 11:02> Objective - Vital Signs/Intake and Output Vital Signs (last 24 hours): Temp Pulse Resp BP Pulse Ox 98.9 F 102 H 16 103/69 94 L 02/01/17 16:00 02/02/17 07:55 02/01/17 16:00 02/02/17 10:19 02/01/17 16:00 - Medications Medications: Current Medications Acetaminophen (Tylenol 325mg Tab) 650 mg PO Q6 PRN; Protocol PRN Reason: Pain, Mild (1-3) Albuterol/Ipratropium (Duoneb 3 Mg/0.5 Mg (3 Ml) Ud) 3 ml IH Q2H PRN PRN Reason: Shortness of Breath Amlodipine Besylate (Norvasc) 10 mg PO DAILY [facility] PRN Reason: Protocol Last Admin: 02/02/17 10:19 Dose: 10 mg Atorvastatin Calcium (Lipitor) 10 mg PO 1700 [facility] PRN Reason: Protocol Last Admin: 02/01/17 17:38 Dose: 10 mg Diphenhydramine HCl (Benadryl) 25 mg PO Q6 PRN PRN Reason: Allergy symptoms Last Admin: 02/01/17 21:38 Dose: 25 mg Ferrous Sulfate (Feosol) 324 mg PO 0800,1700 [facility] Last Admin: 02/02/17 07:54 Dose: 324 mg Gabapentin (Neurontin) 300 mg PO BID [facility] PRN Reason: Protocol Last Admin: 02/02/17 10:19 Dose: 300 mg Guaifenesin/Dextromethorphan (Robitussin Dm) 5 ml PO Q4H PRN PRN Reason: Cough Last Admin: 01/31/17 21:39 Dose: 5 ml Heparin Sodium (Porcine) (Heparin) 5,000 units SC 0600,1800 [facility] PRN Reason: Protocol Last Admin: 02/02/17 05:38 Dose: 5,000 units Hydralazine HCl (Apresoline) 10 mg PO QID PRN PRN Reason: Systolic Blood Pressure Insulin Human Regular (Humulin R Low) 0 units SC ACHS [facility] PRN Reason: Protocol Last Admin: 02/02/17 07:54 Dose: Not Given Losartan Potassium (Cozaar) 100 mg PO DAILY [facility] PRN Reason: Protocol Last Admin: 02/02/17 10:18 Dose: 100 mg Metoprolol Succinate (Toprol Xl) 50 mg PO BRK [facility] Last Admin: 02/02/17 07:55 Dose: 50 mg Pantoprazole Sodium (Protonix Ec Tab) 40 mg PO 0630 [facility] Last Admin: 02/02/17 05:45 Dose: 40 mg - Labs Labs: 02/02/17 06:15 02/02/17 06:15 Attending/Attestation - Attestation I have personally seen and examined this patient.: Yes I have fully participated in the care of the patient.: Yes I have reviewed all pertinent clinical information, including history, physical exam and plan: Yes
--- NOTE | 2017-01-30 13:32 | CP.PCM.HP ---
<Nancy Farr - Last Filed: 01/30/17 13:53> History of Present Illness - History of Present Illness History of Present Illness: This is a 42y M with PMH HTN, HLD, DM, gout and CHF who was admitted for ERICA ( resolved), elevated troponin and pneumonia has been transferred to TCU for strengthening. Patient reports since the transfer he has noticed increased swelling in his legs and face. He also complains of cough with clear mucus and runny nose. He does have seasonal allergies, but thinks he was allergic to something in the previous room. He denies any SOB, CP, n/v/d, numbness/ tingling. The patient did have the second part of his stress test today as per Cardiology. He did not have any complications. PMH: HTN, HLD, DM, gout, CHF PSH: Denies Home meds: Please see MAR. ALL: NKDA SH: Lives with Mom. Denies EtOH, tobacco or drug use (urine tox negative). FH: Denies Present on Admission - Present on Admission Any Indicators Present on Admission: No Review of Systems - Review of Systems Review of Systems: As per HPI Past Patient History - Infectious Disease Hx of Infectious Diseases: None - Past Social History Smoking Status: Never Smoked Alcohol: None Drugs: Denies Home Situation {Lives}: With Family - CARDIAC Hx Hypertension: Yes - PULMONARY Hx Chronic Obstructive Pulmonary Disease (COPD): No Hx Pneumonia: Yes - NEUROLOGICAL HX Cerebrovascular Accident: No - RENAL Hx Renal Failure: No - ENDOCRINE/METABOLIC Hx Diabetes Mellitus Type 2: Yes - HEMATOLOGICAL/ONCOLOGICAL Hx Cancer: No - INTEGUMENTARY Other/Comment: MRSA to bilat lower ext ulcers, 5cm x 3cm irregular ulcer to outer left ankle/footm dry feet thick toenails leathery skin to feet, multiple brown skin discolorations, red areas of dry skin and multiple small nodules, rle redness and mutiple brown nodules, +2 pitting edema both feet - MUSCULOSKELETAL/RHEUMATOLOGICAL Hx Falls: No - GASTROINTESTINAL Hx Gastrointestinal Disorders: No - GENITOURINARY/GYNECOLOGICAL Hx Genitourinary Disorders: No Hx Reproductive Disorders: No - PSYCHIATRIC Hx Substance Use: No - ANESTHESIA Hx Anesthesia: No Meds Allergies/Adverse Reactions: Allergies Allergy/AdvReac Type Severity Reaction Status Date / Time No Known Allergies Allergy Verified 01/29/17 20:54 Physical Exam - Constitutional Appears: No Acute Distress - Head Exam Head Exam: ATRAUMATIC, NORMAL INSPECTION, NORMOCEPHALIC - Eye Exam Eye Exam: Normal appearance, Periorbital swelling (mild ) Pupil Exam: NORMAL ACCOMODATION - ENT Exam ENT Exam: Mucous Membranes Moist - Neck Exam Neck exam: Positive for: Normal Inspection - Respiratory Exam Respiratory Exam: Clear to Auscultation Bilateral, NORMAL BREATHING PATTERN. absent: Rales, Rhonchi, Wheezes - Cardiovascular Exam Cardiovascular Exam: REGULAR RHYTHM, +S1, +S2. absent: Gallop, Rubs, Systolic Murmur - GI/Abdominal Exam GI & Abdominal Exam: Normal Bowel Sounds, Soft. absent: Mass, Rebound, Rigid, Tenderness - Extremities Exam Extremities exam: Positive for: pedal edema, tenderness - Neurological Exam Neurological exam: Alert, CN II-XII Intact, Oriented x3 - Psychiatric Exam Psychiatric exam: Normal Affect, Normal Mood - Skin Skin Exam: Dry, Normal Color, Warm Results - Vital Signs Recent Vital Signs: Last Vital Signs Temp 98.3 F 01/30/17 10:00 Pulse 100 H 01/30/17 10:00 Resp 19 01/30/17 10:00 BP 141/98 H 01/30/17 10:00 Pulse Ox 98 01/30/17 10:00 - Labs Result Diagrams: 01/30/17 07:30 01/30/17 07:30 Labs: Laboratory Results - last 24 hr 01/30/17 01/30/17 07:30 07:30 WBC 10.8 RBC 4.19 Hgb 10.6 L Hct 31.8 L MCV 75.9 L MCH 25.3 MCHC 33.3 RDW 17.3 H Plt Count 281 MPV 8.5 Sodium 138 Potassium 3.7 Chloride 100 Carbon Dioxide 26 Anion Gap 16 BUN 6 L Creatinine 0.7 Est GFR ( Amer) > 60 Est GFR (Non-Af Amer) > 60 Random Glucose 113 H Calcium 8.7 Total Bilirubin 1.1 AST 48 ALT 42 Alkaline Phosphatase 62 Total Protein 7.3 Albumin 3.6 Globulin 3.6 Albumin/Globulin Ratio 1.0 L Assessment & Plan - Assessment and Plan (Free Text) Assessment: This is a 42y M with PMH HTN, HLD, DM, gout and CHF who was admitted for ERICA ( resolved), elevated troponin and pneumonia has been transferred to TCU for strengthening. Plan: 1. Pneumonia - Afebrile, no leukocytosis - Continue Doxy and Merrem - ID consulted - Robitussin prn cough - Duoneb prn SOB 2. L ankle cellulitis - MRI yesterday did not show evidence of osteomyelitis - Podiatry consulted - Continue Merrem and Doxy - Wound care - Tylenol prn pain 3. Edema - secondary to CHF versus allergic reaction - daily weight, strict I&O - given Lasix 40mg IV once - Benadryl prn 4. Elevated troponin (Improved) - Cardiology Consulted - Stress test done- will follow up results - Echo last week showed normal EF 5. HTN - Cozaar, Bystolic and Norvasc - Hydralazine prn SBP >170 6. DM with neuropathy - Continue to hold Metformin - will restart as outpatient - ISS - BGM ACHS - Neurontin - HgbA1c was 6.9 7. HLD - Lipitor 8. History of Gout - Hold Allopurinol - Patient should refrain from taking NSAIDs- it is considered the probable cause of his kidney injury GI ppx: Protonix DVT ppx: Heparin Diet: Renal, Heart healthy, Carb consistent Case seen, discussed and reviewed with attending Evan PGY1 - Date & Time Date: 01/30/17 Time: 14:34 <Jayda Dalton - Last Filed: 01/30/17 15:48> Results - Vital Signs Recent Vital Signs: Last Vital Signs Temp 98.3 F 01/30/17 10:00 Pulse 100 H 01/30/17 10:00 Resp 19 01/30/17 10:00 BP 141/98 H 01/30/17 10:00 Pulse Ox 98 01/30/17 10:00 - Labs Result Diagrams: 01/30/17 07:30 01/30/17 07:30 Labs: Laboratory Results - last 24 hr 01/30/17 01/30/17 07:30 07:30 WBC 10.8 RBC 4.19 Hgb 10.6 L Hct 31.8 L MCV 75.9 L MCH 25.3 MCHC 33.3 RDW 17.3 H Plt Count 281 MPV 8.5 Sodium 138 Potassium 3.7 Chloride 100 Carbon Dioxide 26 Anion Gap 16 BUN 6 L Creatinine 0.7 Est GFR ( Amer) > 60 Est GFR (Non-Af Amer) > 60 Random Glucose 113 H Calcium 8.7 Total Bilirubin 1.1 AST 48 ALT 42 Alkaline Phosphatase 62 Total Protein 7.3 Albumin 3.6 Globulin 3.6 Albumin/Globulin Ratio 1.0 L Attending/Attestation - Attestation I have personally seen and examined this patient.: Yes I have fully participated in the care of the patient.: Yes I have reviewed all pertinent clinical information: Yes Notes (Text): 01/30/17 15:45 Attending note; I have seen and examined patient with the resident in TCU. Currently getting gait training. This is a 42 year old male with history of HTN, dyslipidemia, DM-2, gout who was admitted to medical floor for generalized weakness and found to have sepsis secondary to bilateral upper lobe pneumonia, acute kidney injury and elevated troponins. continue IV meropenem and doxy as per ID. improved significantly. Patient is clinically afebrile and nontoxic. acute renal failure; resolved. Troponin elevation is probably secondary to renal impairment vs NSTEMI. Case discussed with edger operator Dr. Pack in detail. Complete second part of Stress test today. hypertension; continue norvasc, losartan, bystolic and hydralazine prn. lasix ordered for LE edema. diabetic foot ulcer; continue wound care by Podiatry. MRI is negative for osteomyelitis. Continue aggressive physical therapy. Upon discharge patient will follow up with
[2017-01-30] MEDS: Non Formulary Medication (Nebivolol [Bystolic] 10 MG) PO SCH (13:40)
--- NOTE | 2017-01-30 18:37 | CP.PCM.CON ---
History of Present Illness - History of Present Illness History of Present Illness: 42 year old male with PMH of DM, morbid obesity with BMI 51, HTN, gout, lower extremity edema was initially admitted in [facility] because of cough and shortness of breath and was found to have healthcare-associated pneumonia. He also had an ankle ulcer and MRI was done which did not reveal osteomyelitis. He has been doing well and is now transferrred to [facility] for continued medical therapy and physical rehabilitation. Infectious diseases consult is requested to continue the treatment for his pneumonia. Currently the patient is comfortable in bed, not in distress, no fevers overnight, still has cough and clear phlegm but it is less. He denies nausea or vomiting, no chest pain, no headache or dizziness, no diarrhea, no dysuria, no abdominal pain. Review of Systems - Review of Systems All systems: reviewed and no additional remarkable complaints except (as per HPI ) Past Patient History - Infectious Disease Hx of Infectious Diseases: None - Past Social History Smoking Status: Never Smoked Alcohol: None Drugs: Denies Home Situation {Lives}: With Family - CARDIAC Hx Hypertension: Yes - PULMONARY Hx Chronic Obstructive Pulmonary Disease (COPD): No - NEUROLOGICAL HX Cerebrovascular Accident: No - RENAL Hx Renal Failure: Yes (Acute Renal Failure) - ENDOCRINE/METABOLIC Hx Diabetes Mellitus Type 2: Yes - HEMATOLOGICAL/ONCOLOGICAL Hx Cancer: No - INTEGUMENTARY Other/Comment: MRSA to bilat lower ext ulcers, 5cm x 3cm irregular ulcer to outer left ankle/footm dry feet thick toenails leathery skin to feet, multiple brown skin discolorations, red areas of dry skin and multiple small nodules, rle redness and mutiple brown nodules, +2 pitting edema both feet - MUSCULOSKELETAL/RHEUMATOLOGICAL Hx Falls: No - GASTROINTESTINAL Hx Gastrointestinal Disorders: No - GENITOURINARY/GYNECOLOGICAL Hx Genitourinary Disorders: No Hx Reproductive Disorders: No - PSYCHIATRIC Hx Substance Use: No - ANESTHESIA Hx Anesthesia: No Meds Allergies/Adverse Reactions: Allergies Allergy/AdvReac Type Severity Reaction Status Date / Time No Known Allergies Allergy Verified 01/29/17 20:54 - Medications Medications: Current Medications Acetaminophen (Tylenol 325mg Tab) 650 mg PO Q6 PRN; Protocol PRN Reason: Pain, Mild (1-3) Albuterol/Ipratropium (Duoneb 3 Mg/0.5 Mg (3 Ml) Ud) 3 ml IH Q2H PRN PRN Reason: Shortness of Breath Amlodipine Besylate (Norvasc) 10 mg PO DAILY [facility] PRN Reason: Protocol Atorvastatin Calcium (Lipitor) 10 mg PO 1700 [facility] PRN Reason: Protocol Last Admin: 01/30/17 17:39 Dose: 10 mg Diphenhydramine HCl (Benadryl) 25 mg PO Q6 PRN PRN Reason: Allergy symptoms Doxycycline Hyclate (Doryx) 100 mg PO Q12 [facility] PRN Reason: Protocol Stop: 02/05/17 22:01 Last Admin: 01/30/17 13:37 Dose: 100 mg Ferrous Sulfate (Feosol) 324 mg PO BID [facility] Last Admin: 01/30/17 17:37 Dose: 324 mg Furosemide (Lasix) 40 mg IVP DAILY [facility] Gabapentin (Neurontin) 300 mg PO BID [facility]MO PRN Reason: Protocol Last Admin: 01/30/17 17:40 Dose: 300 mg Guaifenesin/Dextromethorphan (Robitussin Dm) 5 ml PO Q4H PRN PRN Reason: Cough Last Admin: 01/30/17 05:24 Dose: 5 ml Heparin Sodium (Porcine) (Heparin) 5,000 units SC 0600,1800 [facility] PRN Reason: Protocol Last Admin: 01/30/17 05:22 Dose: 5,000 units Hydralazine HCl (Apresoline) 10 mg PO QID PRN PRN Reason: Systolic Blood Pressure Meropenem 1g/NS 100mL IVPB (Meropenem 1g/Ns 100ml Ivpb) 1 gm in 100 mls @ 100 mls/hr IVPB 0600,1800 [facility] PRN Reason: Protocol Stop: 01/31/17 18:59 Last Admin: 01/30/17 17:39 Dose: 100 mls/hr Insulin Human Regular (Humulin R Low) 0 units SC ACHS [facility] PRN Reason: Protocol Last Admin: 01/30/17 17:37 Dose: Not Given Losartan Potassium (Cozaar) 100 mg PO DAILY [facility] PRN Reason: Protocol Last Admin: 01/30/17 13:37 Dose: 100 mg Non-Formulary Medication (Nebivolol [Bystolic]) 10 mg PO DAILY [facility] Last Admin: 01/30/17 13:40 Dose: Not Given Pantoprazole Sodium (Protonix Ec Tab) 40 mg PO 0630 [facility] Last Admin: 01/30/17 05:32 Dose: 40 mg Physical Exam - Constitutional Appears: Non-toxic, No Acute Distress - Head Exam Head Exam: NORMAL INSPECTION - ENT Exam ENT Exam: Mucous Membranes Moist - Neck Exam Neck exam: Negative for: Lymphadenopathy, Meningismus - Respiratory Exam Respiratory Exam: Decreased Breath Sounds - Cardiovascular Exam Cardiovascular Exam: +S1, +S2 - GI/Abdominal Exam GI & Abdominal Exam: Soft. absent: Tenderness Results - Vital Signs Recent Vital Signs: Last Vital Signs Temp 98.0 F 01/30/17 16:00 Pulse 104 H 01/30/17 16:00 Resp 20 01/30/17 16:00 BP 141/98 H 01/30/17 17:39 Pulse Ox 95 01/30/17 16:00 - Labs Result Diagrams: 01/30/17 07:30 01/30/17 07:30 Labs: Laboratory Results - last 24 hr 01/30/17 01/30/17 07:30 07:30 WBC 10.8 RBC 4.19 Hgb 10.6 L Hct 31.8 L MCV 75.9 L MCH 25.3 MCHC 33.3 RDW 17.3 H Plt Count 281 MPV 8.5 Sodium 138 Potassium 3.7 Chloride 100 Carbon Dioxide 26 Anion Gap 16 BUN 6 L Creatinine 0.7 Est GFR ( Amer) > 60 Est GFR (Non-Af Amer) > 60 Random Glucose 113 H Calcium 8.7 Total Bilirubin 1.1 AST 48 ALT 42 Alkaline Phosphatase 62 Total Protein 7.3 Albumin 3.6 Globulin 3.6 Albumin/Globulin Ratio 1.0 L Assessment & Plan - Assessment and Plan (Free Text) Plan: Assessment Severe sepsis secondary to healthcare-associated pneumonia, clinically improving DM morbid obesity with BMI 51 HTN gout lower extremity edema Plan Continue Doxycycline and Merrem day 7 to complete a 7 day course Will monitor clinically
[2017-01-31] MEDS: Pantoprazole 40 mg EC Tab PO SCH (05:49)
[2017-01-31] MEDS: Meropenem 1g/NS 100mL IVPB 1 GM/100 ML PIGGYBACK IVPB SCH ×2 (05:49→17:40)
[2017-01-31] MEDS: Insulin Reg-LOW-Coverage SC SCH ×4 (06:38→22:03)
[2017-01-31 07:36] LABS: ALB/GLOB RATIO 1.1 (1.1-1.8); ALKALINE PHOSPHATASE 59 U/L (38-133); ALT/SGPT 52 U/L (7-56); AST/SGOT 48 U/L (15-59); BILIRUBIN,TOTAL 0.9 mg/dL (0.2-1.3); BLOOD UREA NITROGEN 7 mg/dL (7-21); CALCIUM 8.9 mg/dL (8.4-10.5); CARBON DIOXIDE 27 mmol/L (21-33); CHLORIDE 100 mmol/L (98-107); GFR AFRICAN-AMERICAN > 60; GLUCOSE,RANDOM 112 mg/dL (70-110); POTASSIUM 3.3 mmol/L (3.6-5.0); SODIUM 138 mmol/L (132-148); TOTAL PROTEIN 7.1 g/dL (5.8-8.3)
[2017-01-31 08:19] LABS: HEMATOCRIT 32.9 % (42.0-52.0); MEAN CELL VOLUME 76.7 fL (80.0-105.0); MEAN CORPUSCULAR HEMOGLOBIN 24.7 pg (25.0-35.0); MEAN CORPUSCULAR HGB CONC 32.2 g/dl (31.0-37.0); MEAN PLATELET VOLUME 9.2 fl (7.0-11.0); RED CELL DISTRIBUTION WIDTH 17.2 % (11.5-14.5); WHITE BLOOD COUNT 9.7 [, 10^3/ul] (4.5-11.0)
[2017-01-31] MEDS ORDERED: Potassium Chloride 40 mEq/30 ml LIQ UD PO ONE (08:55)
[2017-01-31] MEDS ORDERED: Metoprolol Succinate 25 mg XL Tab PO SCH (11:00)
[2017-01-31] MEDS: Non Formulary Medication (Nebivolol [Bystolic] 10 MG) PO SCH (11:41)
[2017-01-31] MEDS ORDERED: Potassium Chloride 20 mEq ER Tab PO ONE (15:46)
--- NOTE | 2017-01-31 17:28 | CP.PCM.PN ---
Subjective - Date & Time of Evaluation Date of Evaluation: 01/31/17 Time of Evaluation: 12:00 - Subjective Subjective: Comfortable, afebrile, not in distress. Objective - Vital Signs/Intake and Output Vital Signs (last 24 hours): Temp Pulse Resp BP Pulse Ox 97.9 F 109 H 14 142/95 H 96 01/31/17 16:00 01/31/17 16:00 01/31/17 16:00 01/31/17 16:00 01/31/17 16:00 Intake and Output: 01/31/17 01/31/17 06:59 18:59 Intake Total 680 Output Total 1800 Balance -1120 - Medications Medications: Current Medications Acetaminophen (Tylenol 325mg Tab) 650 mg PO Q6 PRN; Protocol PRN Reason: Pain, Mild (1-3) Albuterol/Ipratropium (Duoneb 3 Mg/0.5 Mg (3 Ml) Ud) 3 ml IH Q2H PRN PRN Reason: Shortness of Breath Amlodipine Besylate (Norvasc) 10 mg PO DAILY [facility] PRN Reason: Protocol Last Admin: 01/31/17 08:54 Dose: 10 mg Atorvastatin Calcium (Lipitor) 10 mg PO 1700 [facility] PRN Reason: Protocol Last Admin: 01/30/17 17:39 Dose: 10 mg Diphenhydramine HCl (Benadryl) 25 mg PO Q6 PRN PRN Reason: Allergy symptoms Ferrous Sulfate (Feosol) 324 mg PO 0800,1700 [facility] Last Admin: 01/31/17 08:46 Dose: 324 mg Furosemide (Lasix) 40 mg IVP DAILY [facility] Last Admin: 01/31/17 11:40 Dose: 40 mg Gabapentin (Neurontin) 300 mg PO BID [facility] PRN Reason: Protocol Last Admin: 01/31/17 11:41 Dose: 300 mg Guaifenesin/Dextromethorphan (Robitussin Dm) 5 ml PO Q4H PRN PRN Reason: Cough Last Admin: 01/30/17 05:24 Dose: 5 ml Heparin Sodium (Porcine) (Heparin) 5,000 units SC 0600,1800 [facility] PRN Reason: Protocol Last Admin: 01/31/17 05:47 Dose: 5,000 units Hydralazine HCl (Apresoline) 10 mg PO QID PRN PRN Reason: Systolic Blood Pressure Meropenem 1g/NS 100mL IVPB (Meropenem 1g/Ns 100ml Ivpb) 1 gm in 100 mls @ 100 mls/hr IVPB 0600,1800 [facility] PRN Reason: Protocol Stop: 01/31/17 18:59 Last Admin: 01/31/17 05:49 Dose: 100 mls/hr Insulin Human Regular (Humulin R Low) 0 units SC ACHS [facility] PRN Reason: Protocol Last Admin: 01/31/17 11:34 Dose: Not Given Losartan Potassium (Cozaar) 100 mg PO DAILY [facility] PRN Reason: Protocol Last Admin: 01/31/17 08:49 Dose: 100 mg Metoprolol Succinate (Toprol Xl) 50 mg PO BRK [facility] Non-Formulary Medication (Nebivolol [Bystolic]) 10 mg PO DAILY [facility] Last Admin: 01/31/17 11:41 Dose: Not Given Pantoprazole Sodium (Protonix Ec Tab) 40 mg PO 0630 [facility] Last Admin: 01/31/17 05:49 Dose: 40 mg - Labs Labs: 01/31/17 06:30 01/31/17 06:30 - Constitutional Appears: Non-toxic, No Acute Distress - Head Exam Head Exam: NORMAL INSPECTION - ENT Exam ENT Exam: Mucous Membranes Moist - Neck Exam Neck Exam: absent: Lymphadenopathy, Meningismus - Respiratory Exam Respiratory Exam: Decreased Breath Sounds - Cardiovascular Exam Cardiovascular Exam: +S1, +S2 - GI/Abdominal Exam GI & Abdominal Exam: Soft. absent: Tenderness Assessment and Plan - Assessment and Plan (Free Text) Plan: Assessment Severe sepsis secondary to healthcare-associated pneumonia, clinically improved DM morbid obesity with BMI 51 HTN gout lower extremity edema Plan completed 7 days of Doxycycline and Merrem - will discontinue antibiotics and observe Will monitor clinically
--- NOTE | 2017-01-31 17:34 | CP.PCM.PN ---
<Minnie Castaneda - Last Filed: 01/31/17 17:31> Subjective - Date & Time of Evaluation Date of Evaluation: 01/31/17 Time of Evaluation: 17:31 - Subjective Subjective: 42 year old male was seen resting comforably at bedside with Dr. Prater regarding left ankle non-healing ulceration. Patient is in no acute distress, AAOx3. Denies any acute events overnight. Denies pain or discomfort to the ankle. Denies f/n/v/c/sob/cp. Denies any other pedal problems at this time. Objective - Vital Signs/Intake and Output Vital Signs (last 24 hours): Temp Pulse Resp BP Pulse Ox 97.9 F 109 H 14 142/95 H 96 01/31/17 16:00 01/31/17 16:00 01/31/17 16:00 01/31/17 16:00 01/31/17 16:00 Intake and Output: 01/31/17 01/31/17 06:59 18:59 Intake Total 680 Output Total 1800 Balance -1120 - Medications Medications: Current Medications Acetaminophen (Tylenol 325mg Tab) 650 mg PO Q6 PRN; Protocol PRN Reason: Pain, Mild (1-3) Albuterol/Ipratropium (Duoneb 3 Mg/0.5 Mg (3 Ml) Ud) 3 ml IH Q2H PRN PRN Reason: Shortness of Breath Amlodipine Besylate (Norvasc) 10 mg PO DAILY [facility] PRN Reason: Protocol Last Admin: 01/31/17 08:54 Dose: 10 mg Atorvastatin Calcium (Lipitor) 10 mg PO 1700 [facility] PRN Reason: Protocol Last Admin: 01/30/17 17:39 Dose: 10 mg Diphenhydramine HCl (Benadryl) 25 mg PO Q6 PRN PRN Reason: Allergy symptoms Ferrous Sulfate (Feosol) 324 mg PO 0800,1700 [facility] Last Admin: 01/31/17 08:46 Dose: 324 mg Furosemide (Lasix) 40 mg IVP DAILY [facility] Last Admin: 01/31/17 11:40 Dose: 40 mg Gabapentin (Neurontin) 300 mg PO BID [facility] PRN Reason: Protocol Last Admin: 01/31/17 11:41 Dose: 300 mg Guaifenesin/Dextromethorphan (Robitussin Dm) 5 ml PO Q4H PRN PRN Reason: Cough Last Admin: 01/30/17 05:24 Dose: 5 ml Heparin Sodium (Porcine) (Heparin) 5,000 units SC 0600,1800 [facility] PRN Reason: Protocol Last Admin: 01/31/17 05:47 Dose: 5,000 units Hydralazine HCl (Apresoline) 10 mg PO QID PRN PRN Reason: Systolic Blood Pressure Meropenem 1g/NS 100mL IVPB (Meropenem 1g/Ns 100ml Ivpb) 1 gm in 100 mls @ 100 mls/hr IVPB 0600,1800 [facility] PRN Reason: Protocol Stop: 01/31/17 18:59 Last Admin: 01/31/17 05:49 Dose: 100 mls/hr Insulin Human Regular (Humulin R Low) 0 units SC ACHS [facility] PRN Reason: Protocol Last Admin: 01/31/17 11:34 Dose: Not Given Losartan Potassium (Cozaar) 100 mg PO DAILY [facility] PRN Reason: Protocol Last Admin: 01/31/17 08:49 Dose: 100 mg Metoprolol Succinate (Toprol Xl) 50 mg PO BRK [facility] Non-Formulary Medication (Nebivolol [Bystolic]) 10 mg PO DAILY [facility] Last Admin: 01/31/17 11:41 Dose: Not Given Pantoprazole Sodium (Protonix Ec Tab) 40 mg PO 0630 [facility] Last Admin: 01/31/17 05:49 Dose: 40 mg - Labs Labs: 01/31/17 06:30 01/31/17 06:30 - Constitutional Appears: Well, Non-toxic, No Acute Distress - Extremities Exam Additional comments: Left lower extremity focused exam: Vasc: Non-palpable DP and PT pulses, TG wnl, CFT < 3 sec to all digits, moderate edema noted to both lower extremities Neuro: Gross sensation diminished Derm: Open ulceration to left lateral ankle measuring approximately 3 cm x 2.5 cm x 0.1 cm with a fibrogranular base, fibrotic border, mild serous drainage noted, no purulence, mild malodor, no underlying fluctuance or abscess formation , no probe to bone, no ascending cellulitis noted. Ortho: Mild pain to palpation of left lateral ankle - Neurological Exam Neurological Exam: Alert, Awake, Oriented x3 - Psychiatric Exam Psychiatric exam: Normal Affect, Normal Mood Assessment and Plan - Assessment and Plan (Free Text) Assessment: 42 year male with left ankle ulceration secondary to diabetes Plan: Patient examined and evaluated with attending, Dr. Prater Chart, labs vitals reviewed: afebrile, WBC trending down 9.7 Continue IV abx as per ID Wound cx of left ankle: staph epi L ankle x-ray: severe DJD changed noted to ankle joint Wound dressed with optifoam dressing Patient to wear tubigrip to lower extremities bilateral during the day, to be taken off at night Podiatry will follow while patient remains in house <Tracey Prater - Last Filed: 02/04/17 14:24> Objective - Vital Signs/Intake and Output Vital Signs (last 24 hours): Temp Pulse Resp BP Pulse Ox 98.3 F 101 H 15 126/76 90 L 02/03/17 16:00 02/04/17 08:46 02/03/17 16:00 02/04/17 09:52 02/03/17 16:00 - Medications Medications: Current Medications Acetaminophen (Tylenol 325mg Tab) 650 mg PO Q6 PRN; Protocol PRN Reason: Pain, Mild (1-3) Albuterol/Ipratropium (Duoneb 3 Mg/0.5 Mg (3 Ml) Ud) 3 ml IH Q2H PRN PRN Reason: Shortness of Breath Amlodipine Besylate (Norvasc) 10 mg PO DAILY [facility] PRN Reason: Protocol Last Admin: 02/04/17 09:52 Dose: 10 mg Atorvastatin Calcium (Lipitor) 10 mg PO 1700 [facility] PRN Reason: Protocol Last Admin: 02/03/17 17:19 Dose: 10 mg Diphenhydramine HCl (Benadryl) 25 mg PO Q6 PRN PRN Reason: Allergy symptoms Last Admin: 02/02/17 21:55 Dose: 25 mg Ferrous Sulfate (Feosol) 324 mg PO 0800,1700 [facility] Last Admin: 02/04/17 08:46 Dose: 324 mg Gabapentin (Neurontin) 300 mg PO BID [facility] PRN Reason: Protocol Last Admin: 02/04/17 09:52 Dose: 300 mg Guaifenesin/Dextromethorphan (Robitussin Dm) 5 ml PO Q4H PRN PRN Reason: Cough Last Admin: 01/31/17 21:39 Dose: 5 ml Heparin Sodium (Porcine) (Heparin) 5,000 units SC 0600,1800 [facility] PRN Reason: Protocol Last Admin: 02/04/17 06:24 Dose: 5,000 units Hydralazine HCl (Apresoline) 10 mg PO QID PRN PRN Reason: Systolic Blood Pressure Insulin Human Regular (Humulin R Low) 0 units SC ACHS [facility] PRN Reason: Protocol Last Admin: 02/04/17 13:14 Dose: Not Given Losartan Potassium (Cozaar) 100 mg PO DAILY [facility] PRN Reason: Protocol Last Admin: 02/04/17 09:52 Dose: 100 mg Metoprolol Succinate (Toprol Xl) 50 mg PO BRK [facility] Last Admin: 02/04/17 08:46 Dose: 50 mg Mupirocin (Bactroban Ointment) 0 gm TOP BID [facility] Last Admin: 02/04/17 09:54 Dose: 1 applic Pantoprazole Sodium (Protonix Ec Tab) 40 mg PO 0630 [facility] Last Admin: 02/04/17 06:25 Dose: 40 mg Vancomycin HCl (Vancocin 25 Mg/Ml (Oral Use)) 250 mg PO QID [facility] PRN Reason: Protocol Stop: 02/14/17 10:01 Last Admin: 02/04/17 13:14 Dose: 250 mg - Labs Labs: 02/04/17 07:25 02/04/17 07:25 Attending/Attestation - Attestation I have personally seen and examined this patient.: Yes I have fully participated in the care of the patient.: Yes I have reviewed all pertinent clinical information, including history, physical exam and plan: Yes
[2017-01-31] MEDS: guaiFENesin DM 100 mg-10 mg/5 ml UD PO PRN (21:39)
[2017-02-01] MEDS: Pantoprazole 40 mg EC Tab PO SCH ×2 (05:21→07:34)
[2017-02-01] MEDS: Insulin Reg-LOW-Coverage SC SCH ×4 (07:07→22:00)
[2017-02-01 07:10] LABS: HEMATOCRIT 33.1 % (42.0-52.0); MEAN CELL VOLUME 76.8 fL (80.0-105.0); MEAN CORPUSCULAR HEMOGLOBIN 25.1 pg (25.0-35.0); MEAN CORPUSCULAR HGB CONC 32.6 g/dl (31.0-37.0); MEAN PLATELET VOLUME 9.3 fl (7.0-11.0); RED CELL DISTRIBUTION WIDTH 17.3 % (11.5-14.5); WHITE BLOOD COUNT 12.5 [, 10^3/ul] (4.5-11.0)
[2017-02-01 07:24] LABS: ALKALINE PHOSPHATASE 57 U/L (38-133); ALT/SGPT 47 U/L (7-56); AST/SGOT 39 U/L (15-59); BILIRUBIN,TOTAL 0.8 mg/dL (0.2-1.3); BLOOD UREA NITROGEN 11 mg/dL (7-21); CALCIUM 8.8 mg/dL (8.4-10.5); CARBON DIOXIDE 27 mmol/L (21-33); CHLORIDE 102 mmol/L (98-107); GFR AFRICAN-AMERICAN > 60; GLUCOSE,RANDOM 118 mg/dL (70-110); POTASSIUM 3.7 mmol/L (3.6-5.0); SODIUM 139 mmol/L (132-148); TOTAL PROTEIN 6.9 g/dL (5.8-8.3)
[2017-02-01] MEDS: Metoprolol Succinate 50 mg XL Tab PO SCH (08:23)
[2017-02-01] MEDS: Non Formulary Medication (Nebivolol [Bystolic] 10 MG) PO SCH (09:48)
--- NOTE | 2017-02-01 14:10 | PN ---
DATE: 02/01/2017 The patient is in bed, in no acute distress, nontoxic. PHYSICAL EXAMINATION: VITAL SIGNS: Temperature is 98, blood pressure is 114/70, respiratory rate of 18, a heart rate of 92 . HEENT: Unremarkable. NECK: Supple. LUNGS: Have decreased breath sounds. HEART: Normal S1, S2. ABDOMEN: Soft, nontender. LABORATORY EXAMINATION: Reveals a white count of 12,500, hemoglobin of 10, platelets of 306. BUN of 11, creatinine of 0.7. ASSESSMENT AND PLAN: A 42-year-old male with severe sepsis secondary to healthcare-associated pneumo geni, improved, diabetes with morbid obesity, body mass index of 51, hypertension, gout, lower extremi ty edema and completed antibiotic therapy. Currently off of antibiotics. The patient is on heparin for deep venous thrombosis prophylaxis. The patient has a heart rate of 92 and a white count of 12,5 00 this morning with systemic inflammatory response syndrome. Will order kelly cultures and blood, uri ne and sputum and stool Clostridium difficile and chest x-ray and repeat the WBC count. Will hold of f on the antibiotics as patient is not clinically toxic. Demarco Portillo MD cc: [phone] TT: 02/01/2017 14:09:55 Confirmation # [id number] Dictation # [id number]
--- NOTE | 2017-02-01 14:58 | CP.PCM.PN ---
<Nancy Farr - Last Filed: 02/01/17 15:08> Subjective - Date & Time of Evaluation Date of Evaluation: 02/01/17 Time of Evaluation: 09:00 - Subjective Subjective: Hospitalist Progress Note Patient seen and examined at bedside. There were no acute overnight events. He reports feeling better today. His cough has resolved and his swelling has improved. He denies having any pain, CP, SOB, n/v/d, numbness/tingling, dysuria , hematuria, fever or chills. Objective - Vital Signs/Intake and Output Vital Signs (last 24 hours): Temp Pulse Resp BP Pulse Ox 98.2 F 92 H 18 114/74 98 02/01/17 10:00 02/01/17 10:00 02/01/17 10:00 02/01/17 10:00 02/01/17 10:00 - Medications Medications: Current Medications Acetaminophen (Tylenol 325mg Tab) 650 mg PO Q6 PRN; Protocol PRN Reason: Pain, Mild (1-3) Albuterol/Ipratropium (Duoneb 3 Mg/0.5 Mg (3 Ml) Ud) 3 ml IH Q2H PRN PRN Reason: Shortness of Breath Amlodipine Besylate (Norvasc) 10 mg PO DAILY [facility] PRN Reason: Protocol Last Admin: 02/01/17 09:46 Dose: 10 mg Atorvastatin Calcium (Lipitor) 10 mg PO 1700 [facility] PRN Reason: Protocol Last Admin: 01/31/17 17:39 Dose: 10 mg Diphenhydramine HCl (Benadryl) 25 mg PO Q6 PRN PRN Reason: Allergy symptoms Last Admin: 01/31/17 21:37 Dose: 25 mg Ferrous Sulfate (Feosol) 324 mg PO 0800,1700 [facility] Last Admin: 02/01/17 08:23 Dose: 324 mg Furosemide (Lasix) 40 mg IVP DAILY [facility] Last Admin: 02/01/17 09:47 Dose: 40 mg Gabapentin (Neurontin) 300 mg PO BID [facility] PRN Reason: Protocol Last Admin: 02/01/17 09:47 Dose: 300 mg Guaifenesin/Dextromethorphan (Robitussin Dm) 5 ml PO Q4H PRN PRN Reason: Cough Last Admin: 01/31/17 21:39 Dose: 5 ml Heparin Sodium (Porcine) (Heparin) 5,000 units SC 0600,1800 [facility] PRN Reason: Protocol Last Admin: 02/01/17 05:18 Dose: 5,000 units Hydralazine HCl (Apresoline) 10 mg PO QID PRN PRN Reason: Systolic Blood Pressure Insulin Human Regular (Humulin R Low) 0 units SC ACHS [facility] PRN Reason: Protocol Last Admin: 02/01/17 12:30 Dose: Not Given Losartan Potassium (Cozaar) 100 mg PO DAILY [facility] PRN Reason: Protocol Last Admin: 02/01/17 09:47 Dose: 100 mg Metoprolol Succinate (Toprol Xl) 50 mg PO BRK [facility] Last Admin: 02/01/17 08:23 Dose: 50 mg Non-Formulary Medication (Nebivolol [Bystolic]) 10 mg PO DAILY [facility] Last Admin: 02/01/17 09:48 Dose: Not Given Pantoprazole Sodium (Protonix Ec Tab) 40 mg PO 0630 [facility] Last Admin: 02/01/17 07:34 Dose: Not Given - Labs Labs: 02/01/17 06:30 02/01/17 06:30 - Constitutional Appears: No Acute Distress - Head Exam Head Exam: ATRAUMATIC, NORMAL INSPECTION, NORMOCEPHALIC - Eye Exam Eye Exam: Normal appearance Pupil Exam: NORMAL ACCOMODATION - ENT Exam ENT Exam: Mucous Membranes Moist - Neck Exam Neck Exam: Full ROM - Respiratory Exam Respiratory Exam: Clear to Ausculation Bilateral, NORMAL BREATHING PATTERN. absent: Rales, Rhonchi, Wheezes - Cardiovascular Exam Cardiovascular Exam: REGULAR RHYTHM, +S1, +S2. absent: Gallop, Rubs, Murmur - GI/Abdominal Exam GI & Abdominal Exam: Soft, Normal Bowel Sounds. absent: Rigid, Tenderness, Mass , Rebound - Extremities Exam Extremities Exam: Pedal Edema. absent: Calf Tenderness - Neurological Exam Neurological Exam: Alert, Awake, CN II-XII Intact, Normal Gait, Oriented x3 - Psychiatric Exam Psychiatric exam: Normal Affect, Normal Mood - Skin Skin Exam: Dry, Intact, Normal Color, Warm Additional comments: R chronic wound healing, no erythema or discharge noted Assessment and Plan - Assessment and Plan (Free Text) Assessment: This is a 42y M with PMH HTN, HLD, DM, gout and CHF who was admitted for ERICA ( resolved), elevated troponin (resolved) and pneumonia has been transferred to TCU for strengthening. Plan: 1. Pneumonia - Afebrile - mild leukocytosis - Doxy and Merrem 7 day course completed - ID consulted - repeat septic work up for leukocytosis (blood culture, wound culture, Urine culture, pct) - Continue Robitussin prn cough, Duoneb prn SOB 2. L ankle cellulitis - wound site improving- no drainage or erythema, healing - Podiatry consulted- recs appreciated - Merrem and Doxy course completed - Continue Wound care - Tylenol prn pain 3. Edema - improved - Will d/c Lasix - daily weight, strict I&O 4. Elevated troponin (Improved) - Stress test was within normal limits - Echo last week showed normal EF 5. HTN - Continue Cozaar, Toprol and Norvasc - Hydralazine prn SBP >170 6. DM with neuropathy - Continue to hold Metformin - will restart as outpatient - ISS - BGM ACHS - Continue Neurontin 7. HLD - Continue Lipitor 8. History of Gout - Hold Allopurinol- will restart upon d/c - Patient should refrain from taking NSAIDs- it is considered the probable cause of his kidney injury GI ppx: Protonix DVT ppx: Heparin SC Dispo: Patient will complete TCU course and be d/c on SundayFebruary 06 Case seen, discussed and reviewed with attending Evan PGY1 <Jayda Dalton - Last Filed: 02/01/17 17:08> Objective - Vital Signs/Intake and Output Vital Signs (last 24 hours): Temp Pulse Resp BP Pulse Ox 98.9 F 97 H 16 129/81 94 L 02/01/17 16:00 02/01/17 16:00 02/01/17 16:00 02/01/17 16:00 02/01/17 16:00 - Medications Medications: Current Medications Acetaminophen (Tylenol 325mg Tab) 650 mg PO Q6 PRN; Protocol PRN Reason: Pain, Mild (1-3) Albuterol/Ipratropium (Duoneb 3 Mg/0.5 Mg (3 Ml) Ud) 3 ml IH Q2H PRN PRN Reason: Shortness of Breath Amlodipine Besylate (Norvasc) 10 mg PO DAILY [facility] PRN Reason: Protocol Last Admin: 02/01/17 09:46 Dose: 10 mg Atorvastatin Calcium (Lipitor) 10 mg PO 1700 [facility] PRN Reason: Protocol Last Admin: 01/31/17 17:39 Dose: 10 mg Diphenhydramine HCl (Benadryl) 25 mg PO Q6 PRN PRN Reason: Allergy symptoms Last Admin: 01/31/17 21:37 Dose: 25 mg Ferrous Sulfate (Feosol) 324 mg PO 0800,1700 [facility] Last Admin: 02/01/17 08:23 Dose: 324 mg Gabapentin (Neurontin) 300 mg PO BID [facility] PRN Reason: Protocol Last Admin: 02/01/17 09:47 Dose: 300 mg Guaifenesin/Dextromethorphan (Robitussin Dm) 5 ml PO Q4H PRN PRN Reason: Cough Last Admin: 01/31/17 21:39 Dose: 5 ml Heparin Sodium (Porcine) (Heparin) 5,000 units SC 0600,1800 [facility] PRN Reason: Protocol Last Admin: 02/01/17 05:18 Dose: 5,000 units Hydralazine HCl (Apresoline) 10 mg PO QID PRN PRN Reason: Systolic Blood Pressure Insulin Human Regular (Humulin R Low) 0 units SC ACHS [facility] PRN Reason: Protocol Last Admin: 02/01/17 16:42 Dose: Not Given Losartan Potassium (Cozaar) 100 mg PO DAILY [facility] PRN Reason: Protocol Last Admin: 02/01/17 09:47 Dose: 100 mg Metoprolol Succinate (Toprol Xl) 50 mg PO BRK [facility] Last Admin: 02/01/17 08:23 Dose: 50 mg Pantoprazole Sodium (Protonix Ec Tab) 40 mg PO 0630 [facility] Last Admin: 02/01/17 07:34 Dose: Not Given - Labs Labs: 02/01/17 06:30 02/01/17 06:30 Attending/Attestation - Attestation I have personally seen and examined this patient.: Yes I have fully participated in the care of the patient.: Yes I have reviewed all pertinent clinical information, including history, physical exam and plan: Yes Notes (Text): 02/01/17 17:06 Attending note; I have seen and examined patient with the resident in TCU. Currently getting gait training. This is a 42 year old male with history of HTN, dyslipidemia, DM-2, gout who was admitted to medical floor for generalized weakness and found to have sepsis secondary to bilateral upper lobe pneumonia, acute kidney injury and elevated troponins. Completed antibiotics. mild leukocytosis.workup ordered by ID. Patient is clinically afebrile and nontoxic. stress test is negative. hypertension; continue norvasc, losartan, bystolic and hydralazine. diabetic foot ulcer; continue wound care by Podiatry. MRI is negative for osteomyelitis. Continue aggressive physical therapy. Upon discharge patient will follow up with 02/01/17 17:07
--- NOTE | 2017-02-01 16:03 | RAD ---
HISTORY: inc wbc COMPARISON: 01/24/2017 TECHNIQUE: Chest PA and lateral FINDINGS: The left PICC line terminates in the SVC. LUNGS: There is interval near complete resolution of right upper lobe pneumonia. The lungs are clear. PLEURA: No significant pleural effusion identified. No pneumothorax apparent. CARDIOVASCULAR: Normal. OSSEOUS STRUCTURES: No significant abnormalities. VISUALIZED UPPER ABDOMEN: Normal. OTHER FINDINGS: None. IMPRESSION: Interval near complete resolution of right upper lobe pneumonia.
[2017-02-02] MEDS: Pantoprazole 40 mg EC Tab PO SCH (05:45)
[2017-02-02 06:46] LABS: ALKALINE PHOSPHATASE 58 U/L (38-133); ALT/SGPT 47 U/L (7-56); AST/SGOT 40 U/L (15-59); BILIRUBIN,TOTAL 0.6 mg/dL (0.2-1.3); BLOOD UREA NITROGEN 13 mg/dL (7-21); CALCIUM 8.7 mg/dL (8.4-10.5); CARBON DIOXIDE 27 mmol/L (21-33); CHLORIDE 102 mmol/L (95-110); GFR AFRICAN-AMERICAN > 60; GLUCOSE,RANDOM 116 mg/dL (70-110); POTASSIUM 3.7 mmol/L (3.6-5.0); SODIUM 140 mmol/L (132-148); TOTAL PROTEIN 6.4 g/dL (5.8-8.3)
[2017-02-02 07:06] LABS: HEMATOCRIT 31.7 % (42.0-52.0); MEAN CELL VOLUME 76.9 fL (80.0-105.0); MEAN CORPUSCULAR HEMOGLOBIN 24.8 pg (25.0-35.0); MEAN CORPUSCULAR HGB CONC 32.2 g/dl (31.0-37.0); MEAN PLATELET VOLUME 9.2 fl (7.0-11.0); RED CELL DISTRIBUTION WIDTH 17.3 % (11.5-14.5); WHITE BLOOD COUNT 12.1 [, 10^3/ul] (4.5-11.0)
[2017-02-02] MEDS: Insulin Reg-LOW-Coverage SC SCH ×4 (07:54→21:50)
[2017-02-02] MEDS: Metoprolol Succinate 50 mg XL Tab PO SCH (07:55)
--- NOTE | 2017-02-02 09:51 | PN ---
DATE: 02/02/2017 The patient is in bed, in no acute distress, nontoxic. PHYSICAL EXAMINATION: VITAL SIGNS: Temperature is 98, blood pressure is 103/60, respiratory rate of 18, heart rate of 97. HEENT: Unremarkable. NECK: Supple. LUNGS: Have decreased breath sounds. HEART: Normal S1, S2. ABDOMEN: Soft, nontender. LABORATORY DATA: Reveals a white count of 12,100, hemoglobin of 10. The chemistries reveal the BUN of 13, creatinine of 0.8. Chest x-ray from yesterday ____ near complete resolution of right upper lo be pneumonia. LFTs are normal. White count has come down from 12,500 to 12,100 now. Blood and urin e cultures are pending. Stool for C. diff is pending. Procalcitonin is pending. Currently, the pat ient is off of antibiotics. Dr. Dalton's note is reviewed. ASSESSMENT AND PLAN: This is a 42-year-old male with severe sepsis secondary to healthcare-associate d pneumonia, diabetes mellitus, morbid obesity, body mass index of 51, hypertension, gout, lower extr emity edema. Completed antibiotic therapy. Currently off of antibiotics. Mild leukocytosis, down t o 12,100 this morning. Repeat a CBC in the a.m. Will check on the blood and urine cultures and proc alcitonin. Currently off of antibiotics. Local wound care to the ankle. Demarco Portillo MD cc: [phone] TT: 02/02/2017 09:50:46 Confirmation # [id number] Dictation # [id number] mn
--- NOTE | 2017-02-02 17:44 | PN ---
DATE: 02/02/2017 A 42-year-old male seen at bedside for continued evaluation and management of chronic slowly resolvin g left ankle ulceration. The patient states the ulcer has been present for several years and since h is admission the wound is finally starting to close. VITAL SIGNS: Reveal temperature of 97.9, pulse rate of 88, blood pressure 111/71, respiratory rate o f 18. LABORATORY DATA: Reveal a white count of 12.1, hemoglobin of 10.2, hematocrit of 31.7 and platelet c ount of 296. Most recent microbiology report reveals Staphylococcus epidermidis at the left ankle ul cer. OBJECTIVE: Nonpalpable pedal pulses noted bilaterally. Capillary filling time is within normal limi ts bilaterally. There is noted to be +1 nonpitting lower extremity edema bilaterally. The patient i s unable to detect 5.07 gram monofilament wire testing bilaterally. There is a slowly resolving full thickness ulceration on the left lateral ankle that measures approximately 2.8 cm x 2.5 cm x 0.2 cm. The base of the ulceration has a mixed granular and fibrotic base. There is noted to be minimal se jonathan drainage. There is no purulence. There is no probing to tendon or bone. There is no underlyin g abscess formation noted. No signs of localized cellulitis or ascending cellulitis. ASSESSMENT: Full thickness diabetic left ankle ulceration, resolving slowly. PLAN: Wound was cleansed with normal sterile saline. We will apply Bactroban and an Optifoam dressi ng daily. The patient will continue to use the Tubigrips to decrease his lower extremity edema. The patient will continue to use the foam Multi Podus boots. Piero Castro DPM cc: [phone] TT: 02/02/2017 17:44:13 Confirmation # [id number] Dictation # [id number] rosa
[2017-02-03] MEDS: Pantoprazole 40 mg EC Tab PO SCH (06:22)
[2017-02-03 06:39] LABS: HEMATOCRIT 32.7 % (42.0-52.0); MEAN CELL VOLUME 78.4 fL (80.0-105.0); MEAN CORPUSCULAR HEMOGLOBIN 24.9 pg (25.0-35.0); MEAN CORPUSCULAR HGB CONC 31.8 g/dl (31.0-37.0); MEAN PLATELET VOLUME 9.5 fl (7.0-11.0); RED CELL DISTRIBUTION WIDTH 17.8 % (11.5-14.5); WHITE BLOOD COUNT 16.7 [, 10^3/ul] (4.5-11.0)
[2017-02-03 06:45] LABS: BILIRUBIN,TOTAL 0.8 mg/dL (0.2-1.3); BLOOD UREA NITROGEN 14 mg/dL (7-21); CHLORIDE 105 mmol/L (98-107); GFR AFRICAN-AMERICAN > 60; GLUCOSE,RANDOM 122 mg/dL (70-110); POTASSIUM 3.9 mmol/L (3.6-5.0)
[2017-02-03] MEDS: Insulin Reg-LOW-Coverage SC SCH ×4 (06:52→21:58)
[2017-02-03 07:00] LABS: ALKALINE PHOSPHATASE 62 U/L (38-133); ALT/SGPT 42 U/L (7-56); AST/SGOT 37 U/L (15-59); CARBON DIOXIDE 26 mmol/L (21-33); SODIUM 139 mmol/L (132-148)
[2017-02-03] MEDS: Metoprolol Succinate 50 mg XL Tab PO SCH (08:19)
--- NOTE | 2017-02-03 08:26 | CP.PCM.PN ---
Addendum entered and electronically signed by Omar Lyn DPM 08:43: Labs reviewed: WBC-16.7, no clinical signs of infection from left ankle ulceration, likely not the source of elevated WBC. Original Note: <Omar Lyn - Last Filed: 02/03/17 08:29> Subjective - Date & Time of Evaluation Date of Evaluation: 02/03/17 Time of Evaluation: 07:45 - Subjective Subjective: 42 year old male was seen resting comforably at bedside with Dr. Castro regarding left ankle chronic ulceration. Patient is in no acute distress, AAOx3. Denies any acute events overnight. Denies pain or discomfort to the ankle. Denies f/n/v/c/sob/cp. Denies any other pedal problems at this time. Objective - Vital Signs/Intake and Output Vital Signs (last 24 hours): Temp Pulse Resp BP Pulse Ox 98 F 99 H 20 137/88 96 02/03/17 06:00 02/03/17 08:19 02/03/17 06:00 02/03/17 08:19 02/03/17 06:00 - Medications Medications: Current Medications Acetaminophen (Tylenol 325mg Tab) 650 mg PO Q6 PRN; Protocol PRN Reason: Pain, Mild (1-3) Albuterol/Ipratropium (Duoneb 3 Mg/0.5 Mg (3 Ml) Ud) 3 ml IH Q2H PRN PRN Reason: Shortness of Breath Amlodipine Besylate (Norvasc) 10 mg PO DAILY [facility] PRN Reason: Protocol Last Admin: 02/02/17 10:19 Dose: 10 mg Atorvastatin Calcium (Lipitor) 10 mg PO 1700 [facility] PRN Reason: Protocol Last Admin: 02/02/17 17:11 Dose: 10 mg Diphenhydramine HCl (Benadryl) 25 mg PO Q6 PRN PRN Reason: Allergy symptoms Last Admin: 02/02/17 21:55 Dose: 25 mg Ferrous Sulfate (Feosol) 324 mg PO 0800,1700 [facility] Last Admin: 02/03/17 08:19 Dose: 324 mg Gabapentin (Neurontin) 300 mg PO BID [facility] PRN Reason: Protocol Last Admin: 02/02/17 17:11 Dose: 300 mg Guaifenesin/Dextromethorphan (Robitussin Dm) 5 ml PO Q4H PRN PRN Reason: Cough Last Admin: 01/31/17 21:39 Dose: 5 ml Heparin Sodium (Porcine) (Heparin) 5,000 units SC 0600,1800 [facility] PRN Reason: Protocol Last Admin: 02/03/17 06:20 Dose: 5,000 units Hydralazine HCl (Apresoline) 10 mg PO QID PRN PRN Reason: Systolic Blood Pressure Insulin Human Regular (Humulin R Low) 0 units SC ACHS [facility] PRN Reason: Protocol Last Admin: 02/03/17 06:52 Dose: Not Given Losartan Potassium (Cozaar) 100 mg PO DAILY [facility] PRN Reason: Protocol Last Admin: 02/02/17 10:18 Dose: 100 mg Metoprolol Succinate (Toprol Xl) 50 mg PO BRK [facility] Last Admin: 02/03/17 08:19 Dose: 50 mg Mupirocin (Bactroban Ointment) 0 gm TOP BID [facility] Last Admin: 02/02/17 21:55 Dose: 1 applic Pantoprazole Sodium (Protonix Ec Tab) 40 mg PO 0630 [facility] Last Admin: 02/03/17 06:22 Dose: 40 mg - Labs Labs: 02/03/17 06:20 02/03/17 06:20 - Constitutional Appears: No Acute Distress - Extremities Exam Additional comments: Left lower extremity focused exam: Vasc: Non-palpable DP and PT pulses, TG wnl, CFT < 3 sec to all digits, moderate edema noted to both lower extremities Neuro: Gross sensation diminished Derm: Open ulceration to left lateral ankle measuring approximately 2.8 cm x 2.5 cm x 0.2 cm with a fibrogranular base, fibrotic border, mild serous drainage noted, no purulence, mild malodor, no underlying fluctuance or abscess formation, no probe to bone, no ascending cellulitis noted. Ortho: Mild pain to palpation of left lateral ankle - Neurological Exam Neurological Exam: Alert, Awake, Oriented x3 Assessment and Plan - Assessment and Plan (Free Text) Assessment: 42 year old male with chronic left ankle ulceration secondary to DM Plan: Patient examined and evaluated with attending, Dr. Castro Chart, labs vitals reviewed Continue IV abx as per ID Wound cleansed with normal sterile saline, dressed with bacitracin, optifoam dressing Patient to wear tubigrip to lower extremities bilateral during the day, to be taken off at night Podiatry will follow while patient remains in house <Piero Castro - Last Filed: 02/06/17 12:05> Objective - Vital Signs/Intake and Output Vital Signs (last 24 hours): Temp Pulse Resp BP Pulse Ox 98 F 80 18 119/80 97 02/06/17 10:00 02/06/17 10:00 02/06/17 10:00 02/06/17 10:54 02/06/17 10:00 Intake and Output: 02/06/17 02/06/17 06:59 18:59 Intake Total 680 Output Total 750 Balance -70 - Medications Medications: Current Medications Acetaminophen (Tylenol 325mg Tab) 650 mg PO Q6 PRN; Protocol PRN Reason: Pain, Mild (1-3) Albuterol/Ipratropium (Duoneb 3 Mg/0.5 Mg (3 Ml) Ud) 3 ml IH Q2H PRN PRN Reason: Shortness of Breath Amlodipine Besylate (Norvasc) 10 mg PO DAILY [facility] PRN Reason: Protocol Last Admin: 02/06/17 10:54 Dose: 10 mg Atorvastatin Calcium (Lipitor) 10 mg PO 1700 [facility] PRN Reason: Protocol Last Admin: 02/05/17 17:25 Dose: 10 mg Benzonatate (Tessalon Perles) 100 mg PO TID [facility] Diphenhydramine HCl (Benadryl) 25 mg PO Q6 PRN PRN Reason: Allergy symptoms Last Admin: 02/02/17 21:55 Dose: 25 mg Ferrous Sulfate (Feosol) 324 mg PO 0800,1700 [facility] Last Admin: 02/06/17 08:41 Dose: 324 mg Gabapentin (Neurontin) 300 mg PO BID [facility] PRN Reason: Protocol Last Admin: 02/06/17 10:51 Dose: 300 mg Heparin Sodium (Porcine) (Heparin) 5,000 units SC 0600,1800 [facility] PRN Reason: Protocol Last Admin: 02/06/17 05:49 Dose: 5,000 units Hydralazine HCl (Apresoline) 10 mg PO QID PRN PRN Reason: Systolic Blood Pressure Insulin Human Regular (Humulin R Low) 0 units SC ACHS [facility] PRN Reason: Protocol Last Admin: 02/06/17 06:46 Dose: Not Given Losartan Potassium (Cozaar) 100 mg PO DAILY [facility] PRN Reason: Protocol Last Admin: 02/06/17 10:47 Dose: 100 mg Metoprolol Succinate (Toprol Xl) 50 mg PO BRK [facility] Last Admin: 02/06/17 08:41 Dose: 50 mg Mupirocin (Bactroban Ointment) 0 gm TOP BID [facility] Last Admin: 02/05/17 17:25 Dose: 1 applic Pantoprazole Sodium (Protonix Ec Tab) 40 mg PO 0630 [facility] Last Admin: 02/06/17 05:50 Dose: 40 mg - Labs Labs: 02/06/17 09:25 02/06/17 09:25 Attending/Attestation - Attestation I have personally seen and examined this patient.: Yes I have fully participated in the care of the patient.: Yes I have reviewed all pertinent clinical information, including history, physical exam and plan: Yes
--- NOTE | 2017-02-03 12:25 | CP.PCM.PN ---
<Nancy Farr - Last Filed: 02/03/17 12:18> Subjective - Date & Time of Evaluation Date of Evaluation: 02/03/17 Time of Evaluation: 12:18 - Subjective Subjective: Hospitalist Progress Note Patient seen and examined at bedside. There were no acute overnight events. The patient says he feels well today. He has been eating well and has some loose stool, but denies diarrhea. He denies pain, CP, SOB, n/v/d, fever, chills, dysuria or hematuria. Objective - Vital Signs/Intake and Output Vital Signs (last 24 hours): Temp Pulse Resp BP Pulse Ox 98 F 99 H 20 136/92 H 96 02/03/17 06:00 02/03/17 08:19 02/03/17 06:00 02/03/17 11:18 02/03/17 06:00 - Medications Medications: Current Medications Acetaminophen (Tylenol 325mg Tab) 650 mg PO Q6 PRN; Protocol PRN Reason: Pain, Mild (1-3) Albuterol/Ipratropium (Duoneb 3 Mg/0.5 Mg (3 Ml) Ud) 3 ml IH Q2H PRN PRN Reason: Shortness of Breath Amlodipine Besylate (Norvasc) 10 mg PO DAILY [facility] PRN Reason: Protocol Last Admin: 02/03/17 11:18 Dose: 10 mg Atorvastatin Calcium (Lipitor) 10 mg PO 1700 [facility] PRN Reason: Protocol Last Admin: 02/02/17 17:11 Dose: 10 mg Diphenhydramine HCl (Benadryl) 25 mg PO Q6 PRN PRN Reason: Allergy symptoms Last Admin: 02/02/17 21:55 Dose: 25 mg Ferrous Sulfate (Feosol) 324 mg PO 0800,1700 [facility] Last Admin: 02/03/17 08:19 Dose: 324 mg Gabapentin (Neurontin) 300 mg PO BID [facility] PRN Reason: Protocol Last Admin: 02/03/17 11:17 Dose: 300 mg Guaifenesin/Dextromethorphan (Robitussin Dm) 5 ml PO Q4H PRN PRN Reason: Cough Last Admin: 01/31/17 21:39 Dose: 5 ml Heparin Sodium (Porcine) (Heparin) 5,000 units SC 0600,1800 [facility] PRN Reason: Protocol Last Admin: 02/03/17 06:20 Dose: 5,000 units Hydralazine HCl (Apresoline) 10 mg PO QID PRN PRN Reason: Systolic Blood Pressure Insulin Human Regular (Humulin R Low) 0 units SC ACHS [facility] PRN Reason: Protocol Last Admin: 02/03/17 12:10 Dose: Not Given Losartan Potassium (Cozaar) 100 mg PO DAILY [facility] PRN Reason: Protocol Last Admin: 02/03/17 10:30 Dose: 100 mg Metoprolol Succinate (Toprol Xl) 50 mg PO BRK [facility] Last Admin: 02/03/17 08:19 Dose: 50 mg Mupirocin (Bactroban Ointment) 0 gm TOP BID [facility] Last Admin: 02/03/17 11:16 Dose: 1 applic Pantoprazole Sodium (Protonix Ec Tab) 40 mg PO 0630 [facility] Last Admin: 02/03/17 06:22 Dose: 40 mg - Labs Labs: 02/03/17 06:20 02/03/17 06:20 - Constitutional Appears: No Acute Distress - Head Exam Head Exam: ATRAUMATIC, NORMAL INSPECTION, NORMOCEPHALIC - Eye Exam Eye Exam: Normal appearance Pupil Exam: NORMAL ACCOMODATION - ENT Exam ENT Exam: Mucous Membranes Moist - Neck Exam Neck Exam: Full ROM - Respiratory Exam Respiratory Exam: Clear to Ausculation Bilateral, NORMAL BREATHING PATTERN. absent: Rales, Rhonchi, Wheezes - Cardiovascular Exam Cardiovascular Exam: REGULAR RHYTHM, +S1, +S2. absent: Gallop, Rubs, Murmur - GI/Abdominal Exam GI & Abdominal Exam: Soft, Normal Bowel Sounds. absent: Rigid, Tenderness, Mass , Rebound - Extremities Exam Extremities Exam: Pedal Edema (+1) Additional comments: Wound on L ankle healing - Neurological Exam Neurological Exam: Alert, Awake, CN II-XII Intact, Oriented x3 - Psychiatric Exam Psychiatric exam: Normal Affect, Normal Mood - Skin Skin Exam: Dry, Normal Color, Warm Assessment and Plan - Assessment and Plan (Free Text) Assessment: This is a 42y M with PMH HTN, HLD, DM, gout and CHF who was admitted for ERICA ( resolved), elevated troponin (resolved) and pneumonia (resolved) has been transferred to TCU for strengthening. Plan: 1. Leukocytosis - WBC: 16.7, afebrile - repeat blood cultures negative - PCT pending, Urine culture and stool culture pending - Finished 7 day course of Merrem and Doxy 2 days ago - ID consulted-recs appreciated - CXR showed resolution of pneumonia 2. L ankle cellulitis-improved - wound site healing, no drainage noted - Merrem and Doxy course completed - No Osteomyelitis seen on MRI - Continue Wound care - Tylenol prn pain - Podiatry consulted- recs appreciated 3. HTN - Cozaar, Toprol and Norvasc - Hydralazine prn SBP >170 4. DM - ISS - BGM ACHS - Continue Neurontin - Will Restart Home med: Metformin as outpatient 5. HLD - Continue Lipitor 8. Gout - Hold Allopurinol- will restart upon d/c GI ppx: Protonix DVT ppx: Heparin SC Dispo: Patient will complete TCU course and be d/c home on February 06 Case seen, discussed and reviewed with attending Evan PGY1 <Jayda Dalton - Last Filed: 02/03/17 15:25> Objective - Vital Signs/Intake and Output Vital Signs (last 24 hours): Temp Pulse Resp BP Pulse Ox 98 F 99 H 20 136/92 H 96 02/03/17 06:00 02/03/17 08:19 02/03/17 06:00 02/03/17 11:18 02/03/17 06:00 - Medications Medications: Current Medications Acetaminophen (Tylenol 325mg Tab) 650 mg PO Q6 PRN; Protocol PRN Reason: Pain, Mild (1-3) Albuterol/Ipratropium (Duoneb 3 Mg/0.5 Mg (3 Ml) Ud) 3 ml IH Q2H PRN PRN Reason: Shortness of Breath Amlodipine Besylate (Norvasc) 10 mg PO DAILY [facility] PRN Reason: Protocol Last Admin: 02/03/17 11:18 Dose: 10 mg Atorvastatin Calcium (Lipitor) 10 mg PO 1700 [facility] PRN Reason: Protocol Last Admin: 02/02/17 17:11 Dose: 10 mg Diphenhydramine HCl (Benadryl) 25 mg PO Q6 PRN PRN Reason: Allergy symptoms Last Admin: 02/02/17 21:55 Dose: 25 mg Ferrous Sulfate (Feosol) 324 mg PO 0800,1700 [facility] Last Admin: 02/03/17 08:19 Dose: 324 mg Gabapentin (Neurontin) 300 mg PO BID [facility] PRN Reason: Protocol Last Admin: 02/03/17 11:17 Dose: 300 mg Guaifenesin/Dextromethorphan (Robitussin Dm) 5 ml PO Q4H PRN PRN Reason: Cough Last Admin: 01/31/17 21:39 Dose: 5 ml Heparin Sodium (Porcine) (Heparin) 5,000 units SC 0600,1800 [facility] PRN Reason: Protocol Last Admin: 02/03/17 06:20 Dose: 5,000 units Hydralazine HCl (Apresoline) 10 mg PO QID PRN PRN Reason: Systolic Blood Pressure Insulin Human Regular (Humulin R Low) 0 units SC ACHS [facility] PRN Reason: Protocol Last Admin: 02/03/17 12:10 Dose: Not Given Losartan Potassium (Cozaar) 100 mg PO DAILY [facility] PRN Reason: Protocol Last Admin: 02/03/17 10:30 Dose: 100 mg Metoprolol Succinate (Toprol Xl) 50 mg PO BRK [facility] Last Admin: 02/03/17 08:19 Dose: 50 mg Mupirocin (Bactroban Ointment) 0 gm TOP BID [facility] Last Admin: 02/03/17 11:16 Dose: 1 applic Pantoprazole Sodium (Protonix Ec Tab) 40 mg PO 0630 [facility] Last Admin: 02/03/17 06:22 Dose: 40 mg - Labs Labs: 02/03/17 06:20 02/03/17 06:20 Attending/Attestation - Attestation I have personally seen and examined this patient.: Yes I have fully participated in the care of the patient.: Yes I have reviewed all pertinent clinical information, including history, physical exam and plan: Yes Notes (Text): 02/03/17 15:20 Attending note; I have seen and examined patient with the resident in TCU. Currently getting gait training. This is a 42 year old male with history of HTN, dyslipidemia, DM-2, gout who was admitted to medical floor for generalized weakness and found to have sepsis secondary to bilateral upper lobe pneumonia, acute kidney injury and elevated troponins. Completed antibiotics. mild leukocytosis. Currently no diarrhea. No abdominal pain. No leg swelling. Patient is clinically afebrile and nontoxic. Case discussed with ID in detail. We will remove PICC line and monitor. hypertension; continue norvasc, losartan, bystolic and hydralazine. diabetic foot ulcer; continue wound care by Podiatry. MRI is negative for osteomyelitis. Continue aggressive physical therapy. Upon discharge patient will follow up with
[2017-02-03 13:39] LABS: URINE APPEARANCE CLEAR (CLEAR); URINE BILIRUBIN NEGATIVE (NEGATIVE); URINE BLOOD TRACE-INTACT (NEGATIVE); URINE COLOR YELLOW (YELLOW); URINE GLUCOSE (UA) NEGATIVE (NEGATIVE); URINE KETONE NEGATIVE (NEGATIVE); URINE LEUKOCYTE ESTERASE NEGATIVE Leu/uL (NEGATIVE); URINE PROTEIN NEGATIVE mg/dL (<30 mg/dL); URINE UROBILINOGEN 0.2 E.U./dL (<1 E.U./dL)
[2017-02-03 13:47] LABS: URINE BACTERIA SMALL (NEG); URINE EPITHELIAL CELLS 0 - 2 /hpf (0-5); URINE WBC 0 - 2 /hpf (0-6)
[2017-02-04] MEDS: Pantoprazole 40 mg EC Tab PO SCH (06:25)
[2017-02-04] MEDS: Insulin Reg-LOW-Coverage SC SCH ×4 (07:17→21:41)
[2017-02-04 08:22] LABS: ALB/GLOB RATIO 1.1 (1.1-1.8); ALKALINE PHOSPHATASE 73 U/L (38-133); ALT/SGPT 42 U/L (7-56); AST/SGOT 32 U/L (15-59); BILIRUBIN,TOTAL 0.8 mg/dL (0.2-1.3); BLOOD UREA NITROGEN 12 mg/dL (7-21); CALCIUM 9.5 mg/dL (8.4-10.5); CARBON DIOXIDE 24 mmol/L (21-33); CHLORIDE 105 mmol/L (98-107); GFR AFRICAN-AMERICAN > 60; GLUCOSE,RANDOM 120 mg/dL (70-110); POTASSIUM 3.9 mmol/L (3.6-5.0); SODIUM 140 mmol/L (132-148); TOTAL PROTEIN 7.2 g/dL (5.8-8.3)
[2017-02-04] MEDS: Metoprolol Succinate 50 mg XL Tab PO SCH (08:46)
--- NOTE | 2017-02-04 09:02 | PN ---
DATE: 02/04/2017 The patient is in bed, in no acute distress, nontoxic. PHYSICAL EXAMINATION: VITAL SIGNS: Temperature is 98, blood pressure is 130/70, respiratory rate of 18. HEENT: Unremarkable. NECK: Supple. LUNGS: Have decreased breath sounds. HEART: Normal S1, S2. ABDOMEN: Soft. EXTREMITIES: Examination of the patient's ankle reveals an ulcer, no evidence of an active infection . LABORATORY EXAMINATION: Reveals a white count of 16,000 and hemoglobin of 10. Urinalysis is negativ e. Microbiology reveals negative blood cultures. Dr. Bingham's note is reviewed. The patient had a chest x-ray, which is reported to be negative fro m the 4th. ASSESSMENT AND PLAN: A 42-year-old morbidly obese male with a body mass index of 50 with severe seps is secondary to healthcare-associated pneumonia, diabetes mellitus, hypertension, gout, lower extremi ty edema with leukocytosis and patient is on heparin for deep venous thrombosis prophylaxis, does hav e diarrhea, must rule out stool for Clostridium difficile, pseudomembranous colitis. Will start empi rically on p.o. vancomycin and consider Dopplers of the lower extremities to rule out deep venous thr ombosis, although he is on deep venous thrombosis prophylaxis. We will follow closely with you. Demarco Portillo MD cc: [phone] TT: 02/04/2017 09:01:45 Confirmation # [id number] Dictation # [id number] en
[2017-02-04 09:19] LABS: HEMATOCRIT 34.4 % (42.0-52.0); MEAN CELL VOLUME 77.7 fL (80.0-105.0); MEAN CORPUSCULAR HEMOGLOBIN 25.3 pg (25.0-35.0); MEAN CORPUSCULAR HGB CONC 32.6 g/dl (31.0-37.0); MEAN PLATELET VOLUME 9.6 fl (7.0-11.0); RED CELL DISTRIBUTION WIDTH 17.5 % (11.5-14.5); WHITE BLOOD COUNT 14.7 [, 10^3/ul] (4.5-11.0)
[2017-02-04] MEDS: Vancomycin 25 MG/ML PO SCH ×3 (09:54→18:18)
[2017-02-05] MEDS: Pantoprazole 40 mg EC Tab PO SCH (06:05)
[2017-02-05] MEDS: Insulin Reg-LOW-Coverage SC SCH ×4 (06:48→22:50)
[2017-02-05 07:56] LABS: MEAN CELL VOLUME 78.3 fL (80.0-105.0); MEAN CORPUSCULAR HEMOGLOBIN 25.1 pg (25.0-35.0); MEAN PLATELET VOLUME 9.8 fl (7.0-11.0); RED CELL DISTRIBUTION WIDTH 18.1 % (11.5-14.5); WHITE BLOOD COUNT 13.1 [, 10^3/ul] (4.5-11.0)
[2017-02-05] MEDS: Metoprolol Succinate 50 mg XL Tab PO SCH (08:00)
--- NOTE | 2017-02-05 08:29 | PN ---
DATE: 02/03/2017 The patient is in bed in no acute distress, nontoxic. PHYSICAL EXAMINATION: VITAL SIGNS: Temperature is 98, blood pressure is 130/90, respiratory rate of 20. HEENT: Unremarkable. NECK: Supple. LUNGS: Have decreased breath sounds. HEART: Normal S1, S2. ABDOMEN: Soft, nontender. LABORATORY EXAMINATION: Reveals the patient's white count of 16,700, hemoglobin of 10, platelets of ____. Chemistries reveal the BUN of 14, creatinine of 0.9. Microbiology reveals the blood cultures are negative. ASSESSMENT AND PLAN: A 42-year-old with severe sepsis secondary to healthcare-associated pneumonia, diabetes mellitus, morbid obesity, body mass index of 31, hypertension, gout, lower extremity edema, had completed antibiotics, now with systemic inflammatory response syndrome with a leukocytosis of 16 ,700, hemoglobin of 10 and platelets of ____ with negative blood cultures. We will check on the urin alysis and a urine culture was not collected which was ordered 2 days ago. We will request the order again. The patient has a central line which is not being used. Would remove the central line as di scussed with primary care doctor and follow the WBC count. If there is any diarrhea or loose stools, stool Clostridium difficile. The patient's procalcitonin is 0.14 which speaks against bacterial inf ection. LFTs are normal. If all cultures and workup is negative for leukocytosis, will need a CAT s can of the abdomen and pelvis. Demarco Portillo MD cc: 350 TT: 02/03/2017 13:06:57 Confirmation # [id number] Dictation # [id number] tn
[2017-02-05 11:32] VITALS: RESP 18
--- NOTE | 2017-02-05 15:00 | CP.PCM.PN ---
<CastanedaMinnie - Last Filed: 02/05/17 14:57> Subjective - Date & Time of Evaluation Date of Evaluation: 02/05/17 Time of Evaluation: 14:57 - Subjective Subjective: 42 year old male was seen resting comfortably at bedside regarding left ankle chronic ulceration. Patient is in no acute distress, AAOx3. Denies any acute events overnight. Denies pain or discomfort to the ankle. Denies any n/v/f/c/sob /cp. Objective - Vital Signs/Intake and Output Vital Signs (last 24 hours): Temp Pulse Resp BP Pulse Ox 97.6 F 86 18 135/95 H 98 02/05/17 10:00 02/05/17 10:00 02/05/17 10:00 02/05/17 10:52 02/05/17 10:00 - Medications Medications: Current Medications Acetaminophen (Tylenol 325mg Tab) 650 mg PO Q6 PRN; Protocol PRN Reason: Pain, Mild (1-3) Albuterol/Ipratropium (Duoneb 3 Mg/0.5 Mg (3 Ml) Ud) 3 ml IH Q2H PRN PRN Reason: Shortness of Breath Amlodipine Besylate (Norvasc) 10 mg PO DAILY [facility] PRN Reason: Protocol Last Admin: 02/05/17 10:52 Dose: 10 mg Atorvastatin Calcium (Lipitor) 10 mg PO 1700 [facility] PRN Reason: Protocol Last Admin: 02/04/17 18:17 Dose: 10 mg Diphenhydramine HCl (Benadryl) 25 mg PO Q6 PRN PRN Reason: Allergy symptoms Last Admin: 02/02/17 21:55 Dose: 25 mg Ferrous Sulfate (Feosol) 324 mg PO 0800,1700 [facility] Last Admin: 02/05/17 07:59 Dose: 324 mg Gabapentin (Neurontin) 300 mg PO BID [facility] PRN Reason: Protocol Last Admin: 02/05/17 10:51 Dose: 300 mg Guaifenesin/Dextromethorphan (Robitussin Dm) 5 ml PO Q4H PRN PRN Reason: Cough Last Admin: 01/31/17 21:39 Dose: 5 ml Heparin Sodium (Porcine) (Heparin) 5,000 units SC 0600,1800 [facility] PRN Reason: Protocol Last Admin: 02/05/17 06:05 Dose: 5,000 units Hydralazine HCl (Apresoline) 10 mg PO QID PRN PRN Reason: Systolic Blood Pressure Insulin Human Regular (Humulin R Low) 0 units SC ACHS [facility] PRN Reason: Protocol Last Admin: 02/05/17 11:22 Dose: Not Given Losartan Potassium (Cozaar) 100 mg PO DAILY [facility] PRN Reason: Protocol Last Admin: 02/05/17 10:52 Dose: 100 mg Metoprolol Succinate (Toprol Xl) 50 mg PO BRK [facility] Last Admin: 02/05/17 08:00 Dose: 50 mg Mupirocin (Bactroban Ointment) 0 gm TOP BID [facility] Last Admin: 02/05/17 10:51 Dose: 1 applic Pantoprazole Sodium (Protonix Ec Tab) 40 mg PO 0630 [facility] Last Admin: 02/05/17 06:05 Dose: 40 mg - Labs Labs: 02/05/17 06:30 02/04/17 07:25 - Constitutional Appears: Well, Non-toxic, No Acute Distress - Extremities Exam Additional comments: Left lower extremity focused exam: Vasc: Non-palpable DP and PT pulses, TG wnl, CFT < 3 sec to all digits, mild edema noted to both lower extremities Neuro: Gross sensation diminished Derm: Open ulceration to left lateral ankle measuring approximately 2.8 cm x 2.3 cm x 0.1 cm with a fibrogranular base, fibrotic border, no drainage, no purulence, mild malodor, no underlying fluctuance or abscess formation, no probe to bone, no ascending cellulitis noted. 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 Prater Chart, labs vitals reviewed;WBC trending down to 13.1,afebrile Continue IV abx as per ID Wound cleansed with normal sterile saline, dressed with bacitracin, optifoam dressing Patient to wear tubigrip to lower extremities bilateral during the day, to be taken off at night Podiatry will follow while patient remains in house Patient to follow up in [facility] upon d/c <Tracey Prater - Last Filed: 03/04/17 16:29> Objective - Vital Signs/Intake and Output Vital Signs (last 24 hours): Temp Pulse Resp BP Pulse Ox 97.9 F 98 H 18 110/65 97 02/06/17 16:00 02/06/17 16:00 02/06/17 16:00 02/06/17 16:00 02/06/17 16:00 - Labs Labs: 02/06/17 09:25 02/06/17 09:25 Attending/Attestation - Attestation I have personally seen and examined this patient.: Yes I have fully participated in the care of the patient.: Yes I have reviewed all pertinent clinical information, including history, physical exam and plan: Yes
--- NOTE | 2017-02-05 15:21 | CP.PCM.PN ---
<VasquezElias - Last Filed: 02/05/17 16:29> Subjective - Date & Time of Evaluation Date of Evaluation: 02/05/17 Time of Evaluation: 07:30 - Subjective Subjective: Hospitalist Progress Note Patient seen and examined at bedside. There were no acute overnight events. He was seen by podiatry and his wound was cleaned with normal sterile saline, dressed with bacitracin, and optifoam. The patient says he feels well today. He only complains of a dry cough. He denies headaches, fevers, chills, CP, SOB, n/v /d, or any GI/ symptoms. Objective - Vital Signs/Intake and Output Vital Signs (last 24 hours): Temp Pulse Resp BP Pulse Ox 97.6 F 86 18 135/95 H 98 02/05/17 10:00 02/05/17 10:00 02/05/17 10:00 02/05/17 10:52 02/05/17 10:00 - Medications Medications: Current Medications Acetaminophen (Tylenol 325mg Tab) 650 mg PO Q6 PRN; Protocol PRN Reason: Pain, Mild (1-3) Albuterol/Ipratropium (Duoneb 3 Mg/0.5 Mg (3 Ml) Ud) 3 ml IH Q2H PRN PRN Reason: Shortness of Breath Amlodipine Besylate (Norvasc) 10 mg PO DAILY [facility]ASMO PRN Reason: Protocol Last Admin: 02/05/17 10:52 Dose: 10 mg Atorvastatin Calcium (Lipitor) 10 mg PO 1700 [facility]ASMO PRN Reason: Protocol Last Admin: 02/04/17 18:17 Dose: 10 mg Diphenhydramine HCl (Benadryl) 25 mg PO Q6 PRN PRN Reason: Allergy symptoms Last Admin: 02/02/17 21:55 Dose: 25 mg Ferrous Sulfate (Feosol) 324 mg PO 0800,1700 ERASMO Last Admin: 02/05/17 07:59 Dose: 324 mg Gabapentin (Neurontin) 300 mg PO BID [facility]ASMO PRN Reason: Protocol Last Admin: 02/05/17 10:51 Dose: 300 mg Guaifenesin/Dextromethorphan (Robitussin Dm) 5 ml PO Q4H PRN PRN Reason: Cough Last Admin: 01/31/17 21:39 Dose: 5 ml Heparin Sodium (Porcine) (Heparin) 5,000 units SC 0600,1800 [facility] PRN Reason: Protocol Last Admin: 02/05/17 06:05 Dose: 5,000 units Hydralazine HCl (Apresoline) 10 mg PO QID PRN PRN Reason: Systolic Blood Pressure Insulin Human Regular (Humulin R Low) 0 units SC ACHS [facility] PRN Reason: Protocol Last Admin: 02/05/17 11:22 Dose: Not Given Losartan Potassium (Cozaar) 100 mg PO DAILY [facility] PRN Reason: Protocol Last Admin: 02/05/17 10:52 Dose: 100 mg Metoprolol Succinate (Toprol Xl) 50 mg PO BRK [facility] Last Admin: 02/05/17 08:00 Dose: 50 mg Mupirocin (Bactroban Ointment) 0 gm TOP BID [facility] Last Admin: 02/05/17 10:51 Dose: 1 applic Pantoprazole Sodium (Protonix Ec Tab) 40 mg PO 0630 [facility] Last Admin: 02/05/17 06:05 Dose: 40 mg - Labs Labs: 02/05/17 06:30 02/04/17 07:25 - Constitutional Appears: Non-toxic, No Acute Distress - Head Exam Head Exam: ATRAUMATIC, NORMOCEPHALIC - Eye Exam Eye Exam: EOMI - ENT Exam ENT Exam: Mucous Membranes Moist - Neck Exam Neck Exam: Full ROM - Respiratory Exam Respiratory Exam: Clear to Ausculation Bilateral, NORMAL BREATHING PATTERN. absent: Wheezes, Respiratory Distress - Cardiovascular Exam Cardiovascular Exam: REGULAR RHYTHM, +S1, +S2. absent: JVD - GI/Abdominal Exam GI & Abdominal Exam: Soft, Normal Bowel Sounds. absent: Tenderness - Extremities Exam Extremities Exam: Joint Swelling Additional comments: Edema BL LE - Back Exam Back Exam: CVA tenderness (L), CVA tenderness (R) - Neurological Exam Neurological Exam: Alert, Awake, Oriented x3 - Psychiatric Exam Psychiatric exam: Normal Affect, Normal Mood - Skin Skin Exam: Dry, Intact, Normal Color, Warm Assessment and Plan - Assessment and Plan (Free Text) Assessment: This is a 42y M with PMH HTN, HLD, DM, gout and CHF who was admitted for ERICA ( resolved), elevated troponin (resolved) and pneumonia (resolved) has been transferred to TCU for strengthening. Plan: 1. Leukocytosis - WBC: 13.1 5/8 afebrile, asymptomatic - repeat blood cultures are negative for 3 days - Urine culture and stool culture still pending - Finished 7 day course of Merrem and Doxy 2 days ago - ID consulted- Dr. Lindsey pelletier appreciated - CXR showed resolution of pneumonia in right lobe 2. L ankle cellulitis-improved - wound site healing, no drainage noted - Merrem and Doxy course completed - No Osteomyelitis seen on MRI - Continue Wound care - Tylenol prn pain - Podiatry consulted- Dr. Josi pelletier appreciated - Pt. to follow up with [facility] on d/c 3. HTN - Cozaar, Toprol and Norvasc - Hydralazine prn SBP >170 4. DM - ISS - BGM ACHS - Continue Neurontin - Will Restart Home med: Metformin as outpatient 5. HLD - Continue Lipitor 8. Gout - Hold Allopurinol- will restart upon d/c GI ppx: Protonix DVT ppx: Heparin SC Dispo: Patient will complete TCU course and be d/c home on February 06 Case seen, discussed and reviewed with attending <Makayla Mendoza - Last Filed: 02/05/17 16:51> Objective - Vital Signs/Intake and Output Vital Signs (last 24 hours): Temp Pulse Resp BP Pulse Ox 98.2 F 92 H 18 105/63 95 02/05/17 16:00 02/05/17 16:00 02/05/17 16:00 02/05/17 16:00 02/05/17 16:00 - Medications Medications: Current Medications Acetaminophen (Tylenol 325mg Tab) 650 mg PO Q6 PRN; Protocol PRN Reason: Pain, Mild (1-3) Albuterol/Ipratropium (Duoneb 3 Mg/0.5 Mg (3 Ml) Ud) 3 ml IH Q2H PRN PRN Reason: Shortness of Breath Amlodipine Besylate (Norvasc) 10 mg PO DAILY ERASMO PRN Reason: Protocol Last Admin: 02/05/17 10:52 Dose: 10 mg Atorvastatin Calcium (Lipitor) 10 mg PO 1700 [facility]ASMO PRN Reason: Protocol Last Admin: 02/04/17 18:17 Dose: 10 mg Diphenhydramine HCl (Benadryl) 25 mg PO Q6 PRN PRN Reason: Allergy symptoms Last Admin: 02/02/17 21:55 Dose: 25 mg Ferrous Sulfate (Feosol) 324 mg PO 0800,1700 [facility] Last Admin: 02/05/17 07:59 Dose: 324 mg Gabapentin (Neurontin) 300 mg PO BID [facility]ASMO PRN Reason: Protocol Last Admin: 02/05/17 10:51 Dose: 300 mg Guaifenesin/Dextromethorphan (Robitussin Dm) 5 ml PO Q4H PRN PRN Reason: Cough Last Admin: 01/31/17 21:39 Dose: 5 ml Heparin Sodium (Porcine) (Heparin) 5,000 units SC 0600,1800 [facility] PRN Reason: Protocol Last Admin: 02/05/17 06:05 Dose: 5,000 units Hydralazine HCl (Apresoline) 10 mg PO QID PRN PRN Reason: Systolic Blood Pressure Insulin Human Regular (Humulin R Low) 0 units SC ACHS [facility] PRN Reason: Protocol Last Admin: 02/05/17 16:43 Dose: Not Given Losartan Potassium (Cozaar) 100 mg PO DAILY [facility] PRN Reason: Protocol Last Admin: 02/05/17 10:52 Dose: 100 mg Metoprolol Succinate (Toprol Xl) 50 mg PO BRK [facility] Last Admin: 02/05/17 08:00 Dose: 50 mg Mupirocin (Bactroban Ointment) 0 gm TOP BID [facility] Last Admin: 02/05/17 10:51 Dose: 1 applic Pantoprazole Sodium (Protonix Ec Tab) 40 mg PO 0630 [facility] Last Admin: 02/05/17 06:05 Dose: 40 mg - Labs Labs: 02/05/17 06:30 02/04/17 07:25 Attending/Attestation - Attestation I have personally seen and examined this patient.: Yes I have fully participated in the care of the patient.: Yes I have reviewed all pertinent clinical information, including history, physical exam and plan: Yes Notes (Text): I have seen and examined patient with the resident in TCU. This is a 42 year old male with history of HTN, dyslipidemia, DM-2, gout who was admitted to medical floor for generalized weakness and found to have sepsis secondary to bilateral upper lobe pneumonia, acute kidney injury and elevated troponins. He has completed antibiotic treatment. Still complains of dry cough however denies any sob, diarrhea or abdominal pain. Continue norvasc, losartan, bystolic and hydralazine. Continue aggressive physical therapy. Plan for discharge tomorrow. Will discuss with counter caser. Upon discharge patient will follow up with Dr.Armas Dr Makayla Mendoza
[2017-02-05] MEDS: guaiFENesin DM 100 mg-10 mg/5 ml UD PO PRN ×2 (17:26→21:30)
--- NOTE | 2017-02-05 18:09 | PN ---
DATE: 02/05/2017 The patient seen in bed, no acute distress. PHYSICAL EXAMINATION: VITAL SIGNS: Temperature is 97, blood pressure is 120/70, respiratory rate of 16. HEENT: Unremarkable. NECK: Supple. LUNGS: Have decreased breath sounds. HEART: Normal S1, S2. ABDOMEN: Soft, nontender. LABORATORY DATA: Reveals a white count of 13,100, hemoglobin of 11 and platelets of 333. BUN of 12, creatinine of 0.9. Urinalysis is noted. Microbiology is noted. The patient's stool for C. diff is reported to be negative and stool cultures are no Salmonella, no Shigella, no Campylobacter are isol ated. The C. diff toxin and antigen are negative. The blood cultures are also negative. The patien t's white count this morning is down to 13,100. ASSESSMENT AND PLAN: This is a 42-year-old morbidly obese male with a BMI of 50, severe sepsis secon rodolfo to healthcare-associated pneumonia, diabetes mellitus, hypertension, gout and lower extremity ed jeramie with leukocytosis on heparin for DVT, thought did have some soft tools. C. diff toxin antigen is negative. The vancomycin is discontinued and currently does have mild leukocytosis of 13,100. We w ill check on the WBC count. The patient is off of antibiotics and I did order Dopplers of the lower extremities for DVT and the results are pending. Demarco Portillo MD cc: 350 TT: 02/05/2017 18:08:44 Confirmation # [id number] Dictation # [id number] mn
[2017-02-06] MEDS: Pantoprazole 40 mg EC Tab PO SCH (05:50)
[2017-02-06] MEDS: guaiFENesin DM 100 mg-10 mg/5 ml UD PO PRN (05:50)
[2017-02-06] MEDS: Insulin Reg-LOW-Coverage SC SCH ×3 (06:46→18:16)
[2017-02-06] MEDS: Metoprolol Succinate 50 mg XL Tab PO SCH (08:41)
[2017-02-06 09:33] LABS: ADD MANUAL DIFF? NO
[2017-02-06 09:37] LABS: BASO # 0.03 [, K/mm3] (0.0-2.0); BASO % 0.3 % (0.0-3.0); EOS # 0.4 (0.0-0.7); EOS % 3.7 % (1.5-5.0); GRAN # 8.94 (1.4-6.5); GRAN % 76.1 % (50.0-68.0); HEMATOCRIT 34.4 % (42.0-52.0); LYMPH # 1.7 (1.2-3.4); LYMPH % 14.7 % (22.0-35.0); MEAN CORPUSCULAR HEMOGLOBIN 25.1 pg (25.0-35.0); MEAN CORPUSCULAR HGB CONC 32.6 g/dl (31.0-37.0); MEAN PLATELET VOLUME 9.3 fl (7.0-11.0); MONO # 0.6 (0.1-0.6); MONO % 5.2 % (1.0-6.0); PLATELET COUNT 337 [, 10^3/uL] (120.0-450.0); RED CELL DISTRIBUTION WIDTH 17.3 % (11.5-14.5); WHITE BLOOD COUNT 11.7 [, 10^3/ul] (4.5-11.0)
[2017-02-06 09:44] LABS: BLOOD UREA NITROGEN 11 mg/dL (7-21); CALCIUM 9.2 mg/dL (8.4-10.5); CARBON DIOXIDE 24 mmol/L (21-33); CHLORIDE 102 mmol/L (95-110); GFR AFRICAN-AMERICAN > 60; GLUCOSE,RANDOM 135 mg/dL (70-110); POTASSIUM 3.8 mmol/L (3.6-5.0); SODIUM 138 mmol/L (132-148); TOTAL PROTEIN 7.3 g/dL (5.8-8.3)
[2017-02-06 09:45] LABS: ALB/GLOB RATIO 1.1 (1.1-1.8); ALKALINE PHOSPHATASE 63 U/L (38-133); ALT/SGPT 50 U/L (7-56); AST/SGOT 50 U/L (15-59); BILIRUBIN,TOTAL 0.8 mg/dL (0.2-1.3)
[2017-02-06 11:03] VITALS: O2SAT 97
--- NOTE | 2017-02-06 13:06 | CP.PCM.PN ---
<Minnie Castaneda - Last Filed: 02/06/17 13:02> Subjective - Date & Time of Evaluation Date of Evaluation: 02/06/17 Time of Evaluation: 13:02 - Subjective Subjective: 42 year old male was seen resting comfortably at bedside regarding left ankle chronic ulceration. Patient is in no acute distress, AAOx3. Denies any acute events overnight. Denies pain or discomfort to the ankle. He denies any n/v/f/c /sob/cp. Objective - Vital Signs/Intake and Output Vital Signs (last 24 hours): Temp Pulse Resp BP Pulse Ox 98 F 80 18 119/80 97 02/06/17 10:00 02/06/17 10:00 02/06/17 10:00 02/06/17 10:54 02/06/17 10:00 Intake and Output: 02/06/17 02/06/17 06:59 18:59 Intake Total 680 Output Total 750 Balance -70 - Medications Medications: Current Medications Acetaminophen (Tylenol 325mg Tab) 650 mg PO Q6 PRN; Protocol PRN Reason: Pain, Mild (1-3) Albuterol/Ipratropium (Duoneb 3 Mg/0.5 Mg (3 Ml) Ud) 3 ml IH Q2H PRN PRN Reason: Shortness of Breath Amlodipine Besylate (Norvasc) 10 mg PO DAILY [facility]ASMO PRN Reason: Protocol Last Admin: 02/06/17 10:54 Dose: 10 mg Atorvastatin Calcium (Lipitor) 10 mg PO 1700 ERASMO PRN Reason: Protocol Last Admin: 02/05/17 17:25 Dose: 10 mg Benzonatate (Tessalon Perles) 100 mg PO TID ERASMO Diphenhydramine HCl (Benadryl) 25 mg PO Q6 PRN PRN Reason: Allergy symptoms Last Admin: 02/02/17 21:55 Dose: 25 mg Ferrous Sulfate (Feosol) 324 mg PO 0800,1700 ERASMO Last Admin: 02/06/17 08:41 Dose: 324 mg Gabapentin (Neurontin) 300 mg PO BID [facility] PRN Reason: Protocol Last Admin: 02/06/17 10:51 Dose: 300 mg Heparin Sodium (Porcine) (Heparin) 5,000 units SC 0600,1800 [facility] PRN Reason: Protocol Last Admin: 02/06/17 05:49 Dose: 5,000 units Hydralazine HCl (Apresoline) 10 mg PO QID PRN PRN Reason: Systolic Blood Pressure Insulin Human Regular (Humulin R Low) 0 units SC ACHS [facility] PRN Reason: Protocol Last Admin: 02/06/17 12:34 Dose: Not Given Losartan Potassium (Cozaar) 100 mg PO DAILY [facility] PRN Reason: Protocol Last Admin: 02/06/17 10:47 Dose: 100 mg Metoprolol Succinate (Toprol Xl) 50 mg PO BRK [facility] Last Admin: 02/06/17 08:41 Dose: 50 mg Mupirocin (Bactroban Ointment) 0 gm TOP BID [facility] Last Admin: 02/05/17 17:25 Dose: 1 applic Pantoprazole Sodium (Protonix Ec Tab) 40 mg PO 0630 [facility] Last Admin: 02/06/17 05:50 Dose: 40 mg - Labs Labs: 02/06/17 09:25 02/06/17 09:25 - Constitutional Appears: Well, Non-toxic, No Acute Distress - Extremities Exam Additional comments: Left lower extremity focused exam: Vasc: Non-palpable DP and PT pulses, TG wnl, CFT < 3 sec to all digits, mild edema noted to both lower extremities Neuro: Gross sensation diminished Derm: Open ulceration to left lateral ankle measuring approximately 2.8 cm x 2.3 cm x 0.1 cm with a fibrogranular base, fibrotic border, mild amount of serous drainage, no purulence, mild malodor, no underlying fluctuance or abscess formation, no probe to bone, no ascending cellulitis noted. 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 Prater Chart, labs vitals reviewed;WBC trending down to 11.7,afebrile Continue IV abx as per ID Wound cleansed with normal sterile saline, dressed with bactroban, optifoam dressing Patient to wear tubigrip to lower extremities bilateral during the day, to be taken off at night Podiatry will follow while patient remains in house Patient to follow up in wound care center upon d/c <Piero Castro Last Filed: 02/09/17 11:25> Objective - Vital Signs/Intake and Output Vital Signs (last 24 hours): Temp Pulse Resp BP Pulse Ox 97.9 F 98 H 18 110/65 97 02/06/17 16:00 02/06/17 16:00 02/06/17 16:00 02/06/17 16:00 02/06/17 16:00 - Labs Labs: 02/06/17 09:25 02/06/17 09:25 Attending/Attestation - Attestation I have personally seen and examined this patient.: Yes I have fully participated in the care of the patient.: Yes I have reviewed all pertinent clinical information, including history, physical exam and plan: Yes
--- NOTE | 2017-02-06 13:19 | CP.PCM.DIS ---
<VasquezDickElias - Last Filed: 02/06/17 17:24> Provider - Provider Date of Admission: 01/29/17 19:09 Attending physician: Makayla Mendoza MD Primary care physician: Cristofer Isaac MD Time Spent in preparation of Discharge (in minutes): 35 Diagnosis - Discharge Diagnosis (1) Pneumonia Status: Acute Hospital Course - Lab Results Lab Results: Micro Results 02/01/17 20:15 Blood Blood Culture - Preliminary NO GROWTH AFTER 4 DAYS 02/01/17 20:00 Blood Blood Culture - Preliminary NO GROWTH AFTER 4 DAYS 02/03/17 13:33 Urine Urine Culture - Final No Growth (<1,000 CFU/ML) 02/03/17 14:20 Stool Stool Culture - Final NO SALMONELLA, SHIGELLA OR CAMPYLOBACTER ISOLATED. 02/03/17 14:20 Stool C. difficile Antigen & Toxin A,B (M - Final Most Recent Lab Values WBC 11.7 10^3/ul (4.5-11.0) H 02/06/17 09:25 RBC 4.47 10^6/uL (3.5-6.1) 02/06/17 09:25 Hgb 11.2 gm/dL (14.0-18.0) L 02/06/17 09:25 Hct 34.4 % (42.0-52.0) L 02/06/17 09:25 MCV 77.0 fL (80.0-105.0) L 02/06/17 09:25 MCH 25.1 pg (25.0-35.0) 02/06/17 09:25 MCHC 32.6 g/dl (31.0-37.0) 02/06/17 09:25 RDW 17.3 % (11.5-14.5) H 02/06/17 09:25 Plt Count 337 10^3/uL (120.0-450.0) 02/06/17 09:25 MPV 9.3 fl (7.0-11.0) 02/06/17 09:25 Gran % 76.1 % (50.0-68.0) H 02/06/17 09:25 Lymph % (Auto) 14.7 % (22.0-35.0) L 02/06/17 09:25 Alfalfa % (Auto) 5.2 % (1.0-6.0) 02/06/17 09:25 Eos % (Auto) 3.7 % (1.5-5.0) 02/06/17 09:25 Baso % (Auto) 0.3 % (0.0-3.0) 02/06/17 09:25 Gran # 8.94 (1.4-6.5) H 02/06/17 09:25 Lymph # 1.7 (1.2-3.4) 02/06/17 09:25 Alfalfa # 0.6 (0.1-0.6) 02/06/17 09:25 Eos # 0.4 (0.0-0.7) 02/06/17 09:25 Baso # 0.03 K/mm3 (0.0-2.0) 02/06/17 09:25 Sodium 138 mmol/L (132-148) 02/06/17 09:25 Potassium 3.8 mmol/L (3.6-5.0) 02/06/17 09:25 Chloride 102 mmol/L (95-110) 02/06/17 09:25 Carbon Dioxide 24 mmol/L (21-33) 02/06/17 09:25 Anion Gap 16 (10-20) 02/06/17 09:25 BUN 11 mg/dL (7-21) 02/06/17 09:25 Creatinine 0.9 mg/dL (0.5-1.4) 02/06/17 09:25 Est GFR ( Amer) > 60 02/06/17 09:25 Est GFR (Non-Af Amer) > 60 02/06/17 09:25 POC Glucose (mg/dL) 110 mg/dL (65-110) 02/04/17 21:18 Random Glucose 135 mg/dL (70-110) H 02/06/17 09:25 Calcium 9.2 mg/dL (8.4-10.5) 02/06/17 09:25 Total Bilirubin 0.8 mg/dL (0.2-1.3) 02/06/17 09:25 AST 50 U/L (15-59) 02/06/17 09:25 ALT 50 U/L (7-56) 02/06/17 09:25 Alkaline Phosphatase 63 U/L (38-133) 02/06/17 09:25 Total Protein 7.3 g/dL (5.8-8.3) 02/06/17 09:25 Albumin 3.8 g/dL (3.0-4.8) 02/06/17 09:25 Globulin 3.5 gm/dL 02/06/17 09:25 Albumin/Globulin Ratio 1.1 (1.1-1.8) 02/06/17 09:25 Procalcitonin 0.14 NG/ML (0.19-0.49) L 02/01/17 20:15 Urine Color Yellow (YELLOW) 02/03/17 13:33 Urine Appearance Clear (CLEAR) 02/03/17 13:33 Urine pH 6.0 (4.7-8.0) 02/03/17 13:33 Ur Specific Ramona 1.015 (1.005-1.035) 02/03/17 13:33 Urine Protein Negative mg/dL (<30 mg/dL) 02/03/17 13:33 Urine Glucose (UA) Negative mg/dL (NEGATIVE) 02/03/17 13:33 Urine Ketones Negative mg/dL (NEGATIVE) 02/03/17 13:33 Urine Blood Trace-intact (NEGATIVE) H 02/03/17 13:33 Urine Nitrate Negative (NEGATIVE) 02/03/17 13:33 Urine Bilirubin Negative (NEGATIVE) 02/03/17 13:33 Urine Urobilinogen 0.2 E.U./dL (<1 E.U./dL) 02/03/17 13:33 Ur Leukocyte Esterase Negative Manda/uL (NEGATIVE) 02/03/17 13:33 Urine RBC 1 - 3 /hpf (0-2) 02/03/17 13:33 Urine WBC 0 - 2 /hpf (0-6) 02/03/17 13:33 Ur Epithelial Cells 0 - 2 /hpf (0-5) 02/03/17 13:33 Urine Bacteria Small (NEG) 02/03/17 13:33 - Hospital Course Hospital Course: This is a 42y M with PMH HTN, HLD, DM, gout and CHF who was admitted for ERICA ( resolved), elevated troponin and pneumonia has been transferred to TCU for strengthening. While in TCU he completed his course of antibiotics and continued his physical therapy. For his left ankle cellulits, podiatry was consulted and an MRI was done that did not show evidence for osteomyelitis. There was concern of a DVT and a BL duplex venous dopplers ordered. Results showed no evidence of DVT. His repeat chest xray demonstrated near complete resolution of right upper lobe pneumonia. His urine, blood and stool cultures were all negative. He can resume his home medication of Allopurinol, but due to his ERICA, it is recommended his discontinue his Diclofenac. This is a brief account of his stay. For more details, please see his chart. - Date & Time of H&P Date of H&P: 02/06/17 Time of H&P: 07:15 Discharge Exam - Head Exam Head Exam: ATRAUMATIC, NORMOCEPHALIC - Eye Exam Eye Exam: EOMI - ENT Exam ENT Exam: Mucous Membranes Moist - Neck Exam Neck exam: Full Rom - Respiratory Exam Respiratory Exam: Clear to PA & Lateral, NORMAL BREATHING PATTERN, UNREMARKABLE - Cardiovascular Exam Cardiovascular Exam: REGULAR RHYTHM, RRR, +S1, +S2. absent: JVD - GI/Abdominal Exam GI & Abdominal Exam: Normal Bowel Sounds, Soft, Unremarkable. absent: Tenderness - Extremities Exam Extremities exam: pedal pulses present - Back Exam Back exam: absent: CVA tenderness (L) - Neurological Exam Neurological exam: Alert, CN II-XII Intact, Oriented x3 - Skin Skin Exam: Dry, Intact, Normal Color, Warm Discharge Plan - Discharge Medications Prescriptions: Benzonatate [Tessalon Perles] 100 mg PO TID #90 sgl Ferrous Sulfate [Feosol] 324 mg PO 0800,1700 #60 ect Mupirocin 2% Ointment [Bactroban Ointment] 1 unit TOP BID #1 - Follow Up Plan Condition: GOOD Disposition: HOME/ ROUTINE Instructions: Syncope (DC), Hemodialysis for Acute Renal Failure (DC), Pneumonia (DC) Additional Instructions: Patient is medically stable to be discharge home. Please follow up with [facility] for continued physical therapy within 1 week. Please follow up with [facility] for your leg wound within 1 week. Please follow up with your primary care doctor within 1 week. Thank you for allow us to take part in your care. Referrals: Cristofer Isaac MD [Primary Care Provider] - Demarco Portillo MD [Staff Provider] - Tracey Prater DPM [Staff Provider] - Makayla Maldonado - Last Filed: 02/06/17 17:57> Provider - Provider Date of Admission: 01/29/17 19:09 Attending physician: Makayla Mendoza MD Primary care physician: Cristofer Isaac MD Hospital Course - Lab Results Lab Results: Micro Results 02/01/17 20:15 Blood Blood Culture - Preliminary NO GROWTH AFTER 4 DAYS 02/01/17 20:00 Blood Blood Culture - Preliminary NO GROWTH AFTER 4 DAYS 02/03/17 13:33 Urine Urine Culture - Final No Growth (<1,000 CFU/ML) 02/03/17 14:20 Stool Stool Culture - Final NO SALMONELLA, SHIGELLA OR CAMPYLOBACTER ISOLATED. 02/03/17 14:20 Stool C. difficile Antigen & Toxin A,B (M - Final Most Recent Lab Values WBC 11.7 10^3/ul (4.5-11.0) H 02/06/17 09:25 RBC 4.47 10^6/uL (3.5-6.1) 02/06/17 09:25 Hgb 11.2 gm/dL (14.0-18.0) L 02/06/17 09:25 Hct 34.4 % (42.0-52.0) L 02/06/17 09:25 MCV 77.0 fL (80.0-105.0) L 02/06/17 09:25 MCH 25.1 pg (25.0-35.0) 02/06/17 09:25 MCHC 32.6 g/dl (31.0-37.0) 02/06/17 09:25 RDW 17.3 % (11.5-14.5) H 02/06/17 09:25 Plt Count 337 10^3/uL (120.0-450.0) 02/06/17 09:25 MPV 9.3 fl (7.0-11.0) 02/06/17 09:25 Gran % 76.1 % (50.0-68.0) H 02/06/17 09:25 Lymph % (Auto) 14.7 % (22.0-35.0) L 02/06/17 09:25 Alfalfa % (Auto) 5.2 % (1.0-6.0) 02/06/17 09:25 Eos % (Auto) 3.7 % (1.5-5.0) 02/06/17 09:25 Baso % (Auto) 0.3 % (0.0-3.0) 02/06/17 09:25 Gran # 8.94 (1.4-6.5) H 02/06/17 09:25 Lymph # 1.7 (1.2-3.4) 02/06/17 09:25 Alfalfa # 0.6 (0.1-0.6) 02/06/17 09:25 Eos # 0.4 (0.0-0.7) 02/06/17 09:25 Baso # 0.03 K/mm3 (0.0-2.0) 02/06/17 09:25 Sodium 138 mmol/L (132-148) 02/06/17 09:25 Potassium 3.8 mmol/L (3.6-5.0) 02/06/17 09:25 Chloride 102 mmol/L (95-110) 02/06/17 09:25 Carbon Dioxide 24 mmol/L (21-33) 02/06/17 09:25 Anion Gap 16 (10-20) 02/06/17 09:25 BUN 11 mg/dL (7-21) 02/06/17 09:25 Creatinine 0.9 mg/dL (0.5-1.4) 02/06/17 09:25 Est GFR ( Amer) > 60 02/06/17 09:25 Est GFR (Non-Af Amer) > 60 02/06/17 09:25 POC Glucose (mg/dL) 110 mg/dL (65-110) 02/04/17 21:18 Random Glucose 135 mg/dL (70-110) H 02/06/17 09:25 Calcium 9.2 mg/dL (8.4-10.5) 02/06/17 09:25 Total Bilirubin 0.8 mg/dL (0.2-1.3) 02/06/17 09:25 AST 50 U/L (15-59) 02/06/17 09:25 ALT 50 U/L (7-56) 02/06/17 09:25 Alkaline Phosphatase 63 U/L (38-133) 02/06/17 09:25 Total Protein 7.3 g/dL (5.8-8.3) 02/06/17 09:25 Albumin 3.8 g/dL (3.0-4.8) 02/06/17 09:25 Globulin 3.5 gm/dL 02/06/17 09:25 Albumin/Globulin Ratio 1.1 (1.1-1.8) 02/06/17 09:25 Procalcitonin 0.14 NG/ML (0.19-0.49) L 02/01/17 20:15 Urine Color Yellow (YELLOW) 02/03/17 13:33 Urine Appearance Clear (CLEAR) 02/03/17 13:33 Urine pH 6.0 (4.7-8.0) 02/03/17 13:33 Ur Specific Ramona 1.015 (1.005-1.035) 02/03/17 13:33 Urine Protein Negative mg/dL (<30 mg/dL) 02/03/17 13:33 Urine Glucose (UA) Negative mg/dL (NEGATIVE) 02/03/17 13:33 Urine Ketones Negative mg/dL (NEGATIVE) 02/03/17 13:33 Urine Blood Trace-intact (NEGATIVE) H 02/03/17 13:33 Urine Nitrate Negative (NEGATIVE) 02/03/17 13:33 Urine Bilirubin Negative (NEGATIVE) 02/03/17 13:33 Urine Urobilinogen 0.2 E.U./dL (<1 E.U./dL) 02/03/17 13:33 Ur Leukocyte Esterase Negative Manda/uL (NEGATIVE) 02/03/17 13:33 Urine RBC 1 - 3 /hpf (0-2) 02/03/17 13:33 Urine WBC 0 - 2 /hpf (0-6) 02/03/17 13:33 Ur Epithelial Cells 0 - 2 /hpf (0-5) 02/03/17 13:33 Urine Bacteria Small (NEG) 02/03/17 13:33 Attending/Attestation - Attestation I have personally seen and examined this patient.: Yes I have fully participated in the care of the patient.: Yes I have reviewed all pertinent clinical information, including history, physical exam and plan: Yes Notes (Text): I have seen and examined patient with the resident in TCU. This is a 42 year old male with history of HTN, dyslipidemia, DM-2, gout who was admitted to medical floor for generalized weakness and found to have sepsis secondary to bilateral upper lobe pneumonia, acute kidney injury and elevated troponins. ERICA resolved with hydration. ELevated troponins were most likely due to renal insult. MRI negative for osteomyelitis. Duplex of LE unofficial read is negative. He has completed antibiotic treatment. Still complains of dry cough intermittently however denies any sob, diarrhea or abdominal pain. Continue norvasc, losartan, bystolic and hydralazine. Continue physical therapy. Patient is going home today. Referral for PT was given. Upon discharge patient will follow up with . Patient can do physical therapy in Adult day care. Dr Makayla Mendoza 02/06/17 17:56
--- NOTE | 2017-02-06 13:37 | US ---
HISTORY: Leg pain and swelling. Evaluate for DVT PHYSICIAN(S): Ronald De León MD. TECHNIQUE: Duplex sonography and color-flow Doppler with graded compression were used to evaluate the deep venous systems of both lower extremities. FINDINGS: The visualized deep venous systems of both lower extremities are sonographically normal and compressible. Normal wave forms and augmentation are seen. There is no sonographic evidence for deep venous thrombosis in the visualized segments of both lower extremities. IMPRESSION: No sonographic evidence for deep venous thrombosis in the visualized segments of both lower extremities.
--- NOTE | 2017-02-06 14:48 | CP.PCM.PN ---
Subjective - Date & Time of Evaluation Date of Evaluation: 02/06/17 Time of Evaluation: 12:15 - Subjective Subjective: Comfortable, afebrile, not in distress. Objective - Vital Signs/Intake and Output Vital Signs (last 24 hours): Temp Pulse Resp BP Pulse Ox 98 F 80 18 119/80 97 02/06/17 10:00 02/06/17 10:00 02/06/17 10:00 02/06/17 10:54 02/06/17 10:00 Intake and Output: 02/06/17 02/06/17 06:59 18:59 Intake Total 680 900 Output Total 750 200 Balance -70 700 - Medications Medications: Current Medications Acetaminophen (Tylenol 325mg Tab) 650 mg PO Q6 PRN; Protocol PRN Reason: Pain, Mild (1-3) Albuterol/Ipratropium (Duoneb 3 Mg/0.5 Mg (3 Ml) Ud) 3 ml IH Q2H PRN PRN Reason: Shortness of Breath Amlodipine Besylate (Norvasc) 10 mg PO DAILY REPLACED BY [facility] PRN Reason: Protocol Last Admin: 02/06/17 10:54 Dose: 10 mg Atorvastatin Calcium (Lipitor) 10 mg PO 1700 REPLACED BY [facility] PRN Reason: Protocol Last Admin: 02/05/17 17:25 Dose: 10 mg Benzonatate (Tessalon Perles) 100 mg PO TID REPLACED BY [facility] Last Admin: 02/06/17 14:43 Dose: 100 mg Diphenhydramine HCl (Benadryl) 25 mg PO Q6 PRN PRN Reason: Allergy symptoms Last Admin: 02/02/17 21:55 Dose: 25 mg Ferrous Sulfate (Feosol) 324 mg PO 0800,1700 REPLACED BY [facility] Last Admin: 02/06/17 08:41 Dose: 324 mg Gabapentin (Neurontin) 300 mg PO BID REPLACED BY [facility] PRN Reason: Protocol Last Admin: 02/06/17 10:51 Dose: 300 mg Heparin Sodium (Porcine) (Heparin) 5,000 units SC 0600,1800 REPLACED BY [facility] PRN Reason: Protocol Last Admin: 02/06/17 05:49 Dose: 5,000 units Hydralazine HCl (Apresoline) 10 mg PO QID PRN PRN Reason: Systolic Blood Pressure Insulin Human Regular (Humulin R Low) 0 units SC ACHS REPLACED BY [facility] PRN Reason: Protocol Last Admin: 02/06/17 12:34 Dose: Not Given Losartan Potassium (Cozaar) 100 mg PO DAILY REPLACED BY [facility] PRN Reason: Protocol Last Admin: 02/06/17 10:47 Dose: 100 mg Metoprolol Succinate (Toprol Xl) 50 mg PO BRK REPLACED BY [facility] Last Admin: 02/06/17 08:41 Dose: 50 mg Mupirocin (Bactroban Ointment) 0 gm TOP BID REPLACED BY [facility] Last Admin: 02/06/17 14:41 Dose: Not Given Pantoprazole Sodium (Protonix Ec Tab) 40 mg PO 0630 REPLACED BY [facility] Last Admin: 02/06/17 05:50 Dose: 40 mg - Labs Labs: 02/06/17 09:25 02/06/17 09:25 - Constitutional Appears: Non-toxic, No Acute Distress - Head Exam Head Exam: NORMAL INSPECTION - ENT Exam ENT Exam: Mucous Membranes Moist - Neck Exam Neck Exam: absent: Lymphadenopathy, Meningismus - Respiratory Exam Respiratory Exam: Decreased Breath Sounds - Cardiovascular Exam Cardiovascular Exam: +S1, +S2 - GI/Abdominal Exam GI & Abdominal Exam: Soft. absent: Tenderness Assessment and Plan - Assessment and Plan (Free Text) Plan: Assessment S/P Severe sepsis secondary to healthcare-associated pneumonia, clinically improved and S/P treatment DM morbid obesity with BMI 51 HTN gout lower extremity edema Plan continue to monitor off antibiotics since he is at risk for healthcare- associated infections
[2017-02-06 16:19] VITALS: BP 110/65; PULSE 98; TEMP 97.9
== END 2017-02-06 19:00 | disposition home or self-care (01) | DRG 871 ==
LOC: TRCU 19:09 → MERGE 19:09
PROVIDERS: ADMIT Internal Medicine; ATTEND Hospitalist
PROC: F07Z9FZ Gait Training/Functional Ambulation Treatment using Assistive, Adaptive, Supportive or Protective Equipment (ICD-10-PCS; principal; 2017-01-30)
PROC: F07M6ZZ Therapeutic Exercise Treatment of Musculoskeletal System - Whole Body (ICD-10-PCS; 2017-01-30)
PROC: F08Z1ZZ Dressing Techniques Treatment (ICD-10-PCS; 2017-01-30)
PROC: F08Z0ZZ Bathing/Showering Techniques Treatment (ICD-10-PCS; 2017-01-30)
PROC: F08Z2ZZ Grooming/Personal Hygiene Treatment (ICD-10-PCS; 2017-01-30)
DX: A41.9 Sepsis, unspecified organism (principal); J18.9 Pneumonia, unspecified organism; N17.9 Acute kidney failure, unspecified; I11.0 Hypertensive heart disease with heart failure; E11.621 Type 2 diabetes mellitus with foot ulcer; I50.9 Heart failure, unspecified; Z68.43 Body mass index [BMI] 50.0-59.9, adult; L97.329 Non-pressure chronic ulcer of left ankle with unspecified severity; L03.116 Cellulitis of left lower limb; E11.622 Type 2 diabetes mellitus with other skin ulcer; E66.01 Morbid (severe) obesity due to excess calories; M10.9 Gout, unspecified; R65.20 Severe sepsis without septic shock; E78.5 Hyperlipidemia, unspecified; J30.2 Other seasonal allergic rhinitis; L97.509 Non-pressure chronic ulcer of other part of unspecified foot with unspecified severity; Y95 Nosocomial condition; Z87.01 Personal history of pneumonia (recurrent); R53.1 Weakness; M19.072 Primary osteoarthritis, left ankle and foot

== ENCOUNTER 2017-10-09 14:25 | Emergency (ER) | payer MEDICARE, MEDICAID ==
[2017-10-09 14:25] VITALS: BMI 34.0
[2017-10-09 14:43] VITALS: TEMP 99.1
[2017-10-09 16:39] VITALS: RESP 18; O2SAT 98
--- NOTE | 2017-10-09 16:56 | US ---
PROCEDURE: Right lower extremity venous duplex Doppler. HISTORY: r/o DVT COMPARISON: None available. TECHNIQUE: Common femoral, superficial femoral, popliteal and posterior tibial veins were evaluated. Flow was assessed with color Doppler, compressibility, assessment of phasic flow and augmentation response. The peroneal vein was not visualized. FINDINGS: COMMON FEMORAL VEIN: Normal flow related signal, compressibility and augmentation response. SUPERFICIAL FEMORAL VEIN: Normal flow related signal, compressibility and augmentation response. POPLITEAL VEIN: Normal flow related signal, compressibility and augmentation response. POSTERIOR TIBIAL VEIN: Normal flow related signal, compressibility and augmentation response. OTHER FINDINGS: None. IMPRESSION: No evidence of deep venous thrombosis in the right lower extremity.
--- NOTE | 2017-10-09 17:00 | RAD ---
PROCEDURE: Right Foot Radiographs. HISTORY: r/o fx COMPARISON: None. FINDINGS: BONES: There is diffuse bone demineralization. There is no acute displaced fracture or bone destruction. JOINTS: There is severe degenerative osteoarthrosis in the 1st MTP joint. The remaining joint spaces are preserved. SOFT TISSUES: Normal. OTHER FINDINGS: None. IMPRESSION: No acute displaced fracture or bone destruction. 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
--- NOTE | 2017-10-09 17:03 | RAD ---
PROCEDURE: Radiographs of the right tibia and fibula. HISTORY: r/o fx COMPARISON: None available. TECHNIQUE: Frontal and lateral views obtained. FINDINGS: BONES: No acute fracture or destructive lesion. JOINT SPACES: Unremarkable. OTHER FINDINGS: There is significant periarticular subcutaneous edema. IMPRESSION: No acute fracture or bone destruction. Severe periarticular subcutaneous edema.
--- NOTE | 2017-10-09 17:06 | RAD ---
PROCEDURE: Right Ankle Radiographs. HISTORY: r/o fx COMPARISON: None FINDINGS: BONES: There is an old deformity in the distal tibia. There is no acute fracture or bone destruction. JOINTS: Status post fusion of tibiotalar, talonavicular and talocalcaneal joints. SOFT TISSUES: There is severe periarticular soft tissue swelling and subcutaneous edema. OTHER FINDINGS: None. IMPRESSION: No acute fracture or dislocation. Severe periarticular soft tissue swelling and subcutaneous edema. Old deformity in the distal tibia. Status post fusion of ankle, talonavicular and talocalcaneal joints.
[2017-10-09 18:00] VITALS: BP 135/71; PULSE 74
--- NOTE | 2017-10-09 20:16 | ED PDOC ---
Arrival/HPI - General Chief Complaint: Lower Extremity Problem/Injury Time Seen by Provider: 10/09/17 14:59 Historian: Patient - History of Present Illness Narrative History of Present Illness (Text): 10/09/17 20:07 A 42 year old male, with an extensive podiatric history, sent into the emergency department by head chef to rule out fracture and DVT in left lower extremity. Patient reports while walking today he heard a "pop" from his left foot/ankle. Patient is able to ambulate without difficulty. Patient denies any trauma, fever, chills, nausea, vomiting, abdominal pain, chest pain, shortness of breath, cough or any other complaints. 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 foot sx - Anesthesia Hx Anesthesia: Yes Family/Social History - Physician Review Nursing Documentation Reviewed: Yes Family/Social History: No Known Family HX Smoking Status: Never Smoked Hx Alcohol Use: No Hx Substance Use: No Allergies/Home Meds Allergies/Adverse Reactions: Allergies No Known Allergies Allergy (Verified 10/09/17 14:43) Home Medications: Home Meds Medication Instructions Recorded Confirmed Allopurinol [Zyloprim] 300 mg PO DAILY 01/24/17 10/09/17 Atorvastatin Calcium 10 mg PO DAILY 01/24/17 10/09/17 Cyclobenzaprine [Flexeril] 10 mg PO TID 01/24/17 10/09/17 Gabapentin [Neurontin] 300 mg PO BID 01/24/17 10/09/17 Losartan/Hydrochlorothiazide 1 each PO DAILY 01/24/17 10/09/17 [Losartan-Hctz 100-25 mg Tab] MetFORMIN [glucoPHAGE] 500 mg PO BID 01/24/17 10/09/17 Nebivolol [Bystolic] 10 mg PO DAILY 01/24/17 10/09/17 amLODIPine [Norvasc] 5 mg PO DAILY 01/24/17 10/09/17 traMADol [Ultram] 50 mg PO Q6 PRN 01/24/17 10/09/17 Diclofenac Sodium [Voltaren] 100 gm TP PRN 10/09/17 10/09/17 Diclofenac Sodium [Voltaren] 100 mg PO PRN 10/09/17 10/09/17 Review of Systems - Physician Review All systems were reviewed & negative as marked: Yes - Review of Systems Constitutional: absent: Fevers, Night Sweats Respiratory: absent: SOB, Cough Cardiovascular: absent: Chest Pain Gastrointestinal: absent: Abdominal Pain, Nausea, Vomiting Musculoskeletal: Other (Left foot/ankle evaluation) Physical Exam Vital Signs Reviewed: Yes Vital Signs Temp Pulse Resp BP Pulse Ox 10/09/17 18:00 74 18 135/71 98 10/09/17 16:38 79 18 138/79 98 10/09/17 14:37 99.1 F 84 16 143/89 100 Temperature: Afebrile Blood Pressure: Normal Pulse: Regular Respiratory Rate: Normal Appearance: Positive for: Well-Appearing, Non-Toxic, Comfortable Pain Distress: None Mental Status: Positive for: Alert and Oriented X 3 - Systems Exam Head: Present: Atraumatic, Normocephalic Pupils: Present: PERRL Extroacular Muscles: Present: EOMI Conjunctiva: Present: Normal Mouth: Present: Moist Mucous Membranes Neck: Present: Normal Range of Motion Respiratory/Chest: Present: Clear to Auscultation, Good Air Exchange. No: Respiratory Distress, Accessory Muscle Use Cardiovascular: Present: Regular Rate and Rhythm, Normal S1, S2. No: Murmurs Abdomen: Present: Normal Bowel Sounds. No: Tenderness, Distention, Peritoneal Signs Back: Present: Normal Inspection Upper Extremity: Present: Normal Inspection. No: Cyanosis, Edema Lower Extremity: Present: NORMAL PULSES, Other (chronic arthritic changes to bilateral legs, left foot ulcer chronic in nature). No: Edema, CALF TENDERNESS Neurological: Present: GCS=15, CN II-XII Intact, Speech Normal Skin: Present: Warm, Dry, Normal Color. No: Rashes Psychiatric: Present: Alert, Oriented x 3, Normal Insight, Normal Concentration Medical Decision Making ED Course and Treatment: 10/09/17 20:07 Impression: A 42 year old male sent in for evaluation to rule out fracture and DVT concerning left foot/ankle Plan: -- Right lower extremity ultrasound -- Right ankle xray -- Right foot xray -- Right tibia fibula xray -- Reassess and disposition Progress Notes: Report Date : 10/09/2017 16:54:23 PROCEDURE: Right lower extremity venous duplex Doppler. Dictator : Barb Zuniga MD IMPRESSION: No evidence of deep venous thrombosis in the right lower extremity. Report Date : 10/09/2017 16:58:46 PROCEDURE: Right Foot Radiographs. Dictator : Barb Zuniga MD IMPRESSION: No acute displaced fracture or bone destruction. 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 Report Date : 10/09/2017 17:02:14 PROCEDURE: Radiographs of the right tibia and fibula. Dictator : Barb Zuniga MD IMPRESSION: No acute fracture or bone destruction. Severe periarticular subcutaneous edema. Report Date : 10/09/2017 17:04:28 PROCEDURE: Right Ankle Radiographs. Dictator : Barb Zuniga MD IMPRESSION: No acute fracture or dislocation. Severe periarticular soft tissue swelling and subcutaneous edema. Old deformity in the distal tibia. Status post fusion of ankle, talonavicular and talocalcaneal joints. 10/09/17 18:29 I have discussed the results and plan with the patient, who expresses understanding. Patient in agreement with plan to be discharged home. Patient is stable for discharge. Patient was instructed to follow up with physician or return if symptoms worsen or new concerning symptoms arise. - RAD Interpretation Radiology Orders: 10/09/17 15:02 DUPLEX LOWER EXTRM VEIN RIGHT [US] Stat 10/09/17 15:17 ANKLE RIGHT 3 VIEWS ROUTINE [RAD] Stat FOOT RIGHT 3 VIEWS ROUTINE [RAD] Stat TIBIA FIBULA RIGHT [RAD] Stat Disposition/Present on Arrival - Present on Arrival Any Indicators Present on Arrival: No History of DVT/PE: No History of Uncontrolled Diabetes: No Urinary Catheter: No History of Decub. Ulcer: No History Surgical Site Infection Following: None - Disposition Have Diagnosis and Disposition been Completed?: Yes Diagnosis: Leg pain Disposition: HOME/ ROUTINE Disposition Time: 17:00 Condition: GOOD Discharge Instructions (ExitCare): Arthralgia (ED) Additional Instructions: Thank you for letting us take care of you today. The emergency medical care you received today was directed at your acute symptoms. If you were prescribed any medication, please fill it and take as directed. It may take several days for your symptoms to resolve. Return to the Emergency Department if your symptoms worsen, do not improve, or if you have any other problems. Please contact your doctor or call one of the physicians/clinics you have been referred to that are listed on the Patient Visit Information form that is included in your discharge packet. Bring any paperwork you were given at discharge with you along with any medications you are taking to your follow up visit. Our treatment cannot replace ongoing medical care by a primary care provider (PCP) outside of the emergency department. Thank you for allowing the [facility] team to be part of your care today. Follow up with your head chef in 2-3 days for re-evaluation and further management. Referrals: [facility], [Non-Staff] - Follow up with primary Forms: [employer] (Citizen Of [place])
== END 2017-10-09 18:36 | disposition home or self-care (01) ==
LOC: ED 14:25
DX: M79.605 Pain in left leg (principal); E11.9 Type 2 diabetes mellitus without complications; I10 Essential (primary) hypertension

== ENCOUNTER 2019-02-18 09:36 | Outpatient (CLI) | payer MEDICARE, MEDICAID | END 2019-02-18 09:37 | disposition home or self-care (01) | LOC: RAD 09:36 ==